=== PATIENT | female | born 1950 | race Caucasian/White ===

== ENCOUNTER → 2019-12-02 08:04 | Outpatient (BNVA) | payer MEDICARE, MEDICAID, SELFPAY | PROVIDERS: Family Provider Family Medicine; Visit Provider Psychiatry & Neurology Psychiatry | DX: F33.42 Major depressive disorder, recurrent, in full remission (principal); F43.12 Post-traumatic stress disorder, chronic; F41.1 Generalized anxiety disorder | CPT/HCPCS: 99213 ==

== ENCOUNTER → 2020-01-09 08:17 | Outpatient (BNVA) | payer MEDICARE, MEDICAID, SELFPAY | PROVIDERS: Family Provider Family Medicine; Visit Provider Psychiatry & Neurology Psychiatry | DX: F33.42 Major depressive disorder, recurrent, in full remission (principal); F43.12 Post-traumatic stress disorder, chronic; G47.33 Obstructive sleep apnea (adult) (pediatric) | CPT/HCPCS: 99214 ==

== ENCOUNTER → 2020-07-21 07:37 | Outpatient (BNVA) | payer MEDICARE, MEDICAID, SELFPAY | PROVIDERS: Family Provider Family Medicine; Visit Provider Psychiatry & Neurology Psychiatry | DX: F43.12 Post-traumatic stress disorder, chronic (principal); F33.42 Major depressive disorder, recurrent, in full remission; F34.1 Dysthymic disorder; F70 Mild intellectual disabilities | CPT/HCPCS: 99214 ==

== ENCOUNTER → 2020-08-26 09:08 | Outpatient (BNVA) | payer MEDICARE, MEDICAID, SELFPAY | PROVIDERS: Family Provider Family Medicine; Visit Provider Psychiatry & Neurology Psychiatry | DX: F43.12 Post-traumatic stress disorder, chronic (principal); F34.1 Dysthymic disorder; G47.33 Obstructive sleep apnea (adult) (pediatric); F33.42 Major depressive disorder, recurrent, in full remission | CPT/HCPCS: 99213 ==

== ENCOUNTER 2020-11-29 16:42 | Outpatient (CLI) | payer MEDICARE, MEDICAID, SELFPAY ==
--- NOTE | 2020-11-29 17:07 | XRR_ITS ---
PROCEDURE INFORMATION: Exam: XR Chest Exam date and time: 11/29/2020 5:11 PM Age: 70 years old Clinical indication: Dyspnea; Additional info: Rule out pneumonia TECHNIQUE: Imaging protocol: XR of the chest. Views: 2 views. COMPARISON: CR Chest 1 [place] [id number] 11/16/2018 7:45 PM FINDINGS: Lungs: Multiple stable benign pulmonary granulomas are present bilaterally. No pneumonia is seen. Mild fibrosis is present in the lung bases. Pleural spaces: Unremarkable. No pleural effusion. No pneumothorax. Heart/Mediastinum: Unremarkable. No cardiomegaly. Bones/joints: The patient has undergone vertebral plasty at T4. XR/XR chest 2V* [id number] IMPRESSION: No acute abnormality. No pneumonia.
== END 2020-11-29 16:43 | disposition home or self-care (01) ==
LOC: RAD 16:53
PROVIDERS: PCP Family Medicine; Visit Provider Internal Medicine Pulmonary Disease
DX: R06.00 Dyspnea, unspecified (principal)
CPT/HCPCS: 71046

== ENCOUNTER → 2021-02-08 08:59 | Outpatient (BNVA) | payer MEDICARE, MEDICAID, SELFPAY | PROVIDERS: PCP Family Medicine; Visit Provider Internal Medicine Pulmonary Disease | DX: Z01.812 Encounter for preprocedural laboratory examination (principal); Z20.822 Contact with and (suspected) exposure to COVID-19 | CPT/HCPCS: 87635 ==

== ENCOUNTER 2021-02-09 10:15 | Outpatient (CLI) | payer MEDICARE, MEDICAID, SELFPAY ==
--- NOTE | 2021-02-09 11:12 | ECG_ITS ---
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 Interpretive Statements NAME OF STUDY: LEXISCAN SESTAMIBI STRESS TEST INDICATION: Chest Pain, PROCEDURE: At the baseline, the EKG revealed sinus bradycardia with some nonspecific T wave changes.. The baseline blood pressure was 133/56 mm Hg with a heart rate of 59 beats/min. Lexiscan was infused over a period of 20 seconds. A total of 0.4 milligrams of Lexiscan was infused. The stress phase was continued for a total of 5 minutes. Heart rate at the end of the stress phase was 85 with a blood pressure 101/50. The EKG at the peak infusion revealed no significant changes. Sestamibi was injected 20 seconds after the Lexiscan infusion. Blood pressure at the end of the recovery phase was 108/51 with a heart rate of 84 per minute. CONCLUSION: 1. No significant EKG changes with the LexiScan infusion 2. No LexiScan induced chest pain or cardiac arrhythmia 3. Normal blood pressure and heart rate response 4. Sestamibi/sestamibi perfusion scan pending; see separate report. Electronically Signed On 02-11-2021 10:09:18 CDT by Romana Navarro M.D. [id number]
--- NOTE | 2021-02-09 11:13 | NMCV_ITS ---
NM wilfred perf SPECT r/s* [id number] Bharti Lua Age: 70 Gender: F : 1950 Exam Date: 02/09/2021 11:42 Ordering Phys: Annabelle Lam Technologist: LISA Tobar Exam Location: [facility] Indications: CHEST PAIN STRESS TEST Please [facility] for [facility] IMAGE PROTOCOL Rest/Stress 1 Lexiscan Day Radiopharmaceutical Dose (mCi) Administration Site Administered by Rest: Tc-99m 10.7 IV LISA Tobar Sestamibi Stress:Tc-99m 32.8 IV LISA Wheeler Sestamibi Rest: 09-Feb-2021 60 Discovery 630 Stress: 09-Feb-2021 30 Discovery 630 0.4mg Lexiscan. Images obtained in supine and prone position. SPECT RESULTS Technical Quality: Excellent Raw Data Analysis: Normal Image Corrections: No attenuation or motion correction applied Summed Stress Score: 1 Summed Rest Score: 10 Summed Difference Score: 0 PERFUSION FINDINGS Small area of decreased tracer uptake was noted in the apical septal region. Extensive attenuation artifacts are noted in the resting images FUNCTIONAL RESULTS (calculated via Gated SPECT) Stress Image LV EF (%): 75 Stress EDV (mL):73 TID: 1.23 Stress ESV (mL):18 FUNCTIONAL FINDINGS: Segmental wall motion analysis revealing no gross wall motion normalities. IMPRESSIONS 1. Myocardial perfusion imaging revealing a small area of decreased tracer uptake in the apical septal region, with no significant reversibility, suggestive of myocardial scarring versus attenuation artifact. 2. Normal LV ejection fraction of 75%. 3. LV wall motion analysis revealing no gross wall motion normalities. 4. Normal LV volume. 5. Elevated transient ischemic dilatation ratio, may suggest endocardial ischemia. However the positive predictive value of this finding is limited, especially in view of the absence of any other significant abnormal's objective findings. Clinical correlation is recommended Dr Romana Navarro MD FAC (Electronically Signed) Final Date: 10 February 2021 08:33 S
[2021-02-09 11:14] VITALS: BMI 30.6
[2021-02-09] MEDS: regadenoson 0.4 Mg/5 ml Syringe IVP (12:16)
[2021-02-09 12:32] VITALS: BP 108/51; PULSE 84
--- NOTE | 2021-02-09 14:48 | PFTS_ITS ---
Date of Study:02/09/21 Date of Dictation: MECHANICS: Forced vital capacity (FVC) is normal. Forced expiratory volume in one second (FEV1) is reduced. FEV1/FVC is reduced. FLOW VOLUME LOOP: Reduced flow at all lung volumes with significant scooping. LUNG VOLUMES: Total lung capacity (TLC) is normal. Residual volume (RV) is increased. DIFFUSING CAPACITY FOR CARBON MONOXIDE: Moderately reduced. INTERPRETATION: The pulmonary function tests are consistent with moderate airflow obstruction. There is no significant postbronchodilator response. Lung volumes are consistent with air trapping. Gas exchange (DLCO) is moderately reduced. MTDD
== END 2021-02-09 10:16 | disposition home or self-care (01) ==
PROVIDERS: PCP Family Medicine; Visit Provider Nurse Practitioner Family
DX: R07.9 Chest pain, unspecified (principal); J44.9 Chronic obstructive pulmonary disease, unspecified
CPT/HCPCS: 78452; 93017; 94060; 94618; 94726; 94729; A9500; J2785

== ENCOUNTER 2021-04-28 11:49 | Outpatient (CLI) | payer MEDICARE, MEDICAID, SELFPAY ==
[2021-04-28 12:17] LABS: Basophils # 0.1 10^3/uL (0.0-0.1); Basophils % 1.1 %; Eosinophils # 0.3 10^3/uL (0.0-0.8); Eosinophils % 4.5 %; Hematocrit 33.8 % (37.0-47.0); Hemoglobin 10.8 g/dL (11.5-15.3); Lymphocytes # 2.2 10^3/uL (0.8-4.8); Lymphocytes % 35.6 %; Mean Corpuscular Hemoglobin 31.7 pg (28.0-34.0); Mean Corpuscular Volume 99.1 fl (81-99); Mean Platelet Volume 9.5 fL (7.4-10.4); Monocytes # 0.7 10^3/uL (0.2-0.9); Monocytes % 10.6 %; Neutrophils # 2.95 10^3/uL (1.8-7.7); Neutrophils % 47.9 %; Nucleated Red Blood Cells % 0.6 %; Platelet Count 304 10^3/cmm (130-400); Red Blood Count 3.41 10^6/uL (4.1-5.3); Red Cell Distribution Width 13.8 % (12.1-15.1); White Blood Count 6.2 10^3/uL (4.0-10.0)
[2021-04-28 12:42] LABS: Anion Gap 11.6 (5-19); Blood Urea Nitrogen 18 mg/dL (8-23); Calcium 8.9 mg/dL (8.5-10.5); Carbon Dioxide 30 mmol/L (22-29); Chloride 103 mmol/L (98-107); Glucose 98 mg/dL (65-115); Osmolality Calculated 292 mOsm/kg (285-295); Potassium 4.6 mmol/L (3.5-5.1); Sodium 140 mmol/L (136-145)
[2021-04-28 13:20] LABS: INR 0.93 (0.8-1.2)
== END 2021-04-28 11:50 | disposition home or self-care (01) ==
LOC: LAB 11:56
PROVIDERS: PCP Family Medicine; Visit Provider Internal Medicine Cardiovascular Disease
DX: I10 Essential (primary) hypertension (principal); R00.0 Tachycardia, unspecified; R07.2 Precordial pain
CPT/HCPCS: 36415; 80048; 85025; 85610; 87635

== ENCOUNTER 2021-05-05 06:08 | Outpatient (CLI) | payer MEDICARE, MEDICAID, SELFPAY ==
[2021-05-05] VITALS (21 sets, daily range): BP systolic 94–147; BP diastolic 38–83; PULSE 52–80; RESP 12–22; TEMP 36.9; O2SAT 95–100; BMI 32.7
--- NOTE | 2021-05-05 07:37 | W.PM.OPSFHP ---
Same Day Surgery H&P Indication for Procedure/HPI DATE OF PROCEDURE: May 05, 2021 CHIEF COMPLAINT/INDICATIONFOR SURGICAL PROCEDURE: Unexplained shortness of breath with chest pain radiating to left elbow PREOP DIAGNOSIS: Suspicious of angina PLANNED PROCEDRUE: Operation Date: 05/05/21 07:00 Proposed Procedures p Cardiac Catheterization(Bilateral) - Mala Gorman MD 70-year-old female past medical history significant for COPD hyperlipidemia for unexplained shortness of breath more than usual and chest pain sometimes at rest and on exertion underwent stress test which showed increased TID, patient medicine work-up demised conservative management was adopted however despite of optimization of medicine including beta-rolando isosorbide mononitrate patient condition worsen she continues to complain of worsening of shortness of breath with increase in frequency of the chest pain radiating to left arm and elbow. It is the reason we decided to proceed with left and right heart cath for unexplained shortness of breath and anginal-like condition. Patient has been explained all risk benefit and alternative for the procedure. She has been explained the risk for stroke contrast-induced nephropathy bleeding urgent emergent bypass surgery aneurysm pseudoaneurysm vascular injury and infection. She would like to proceed with it. Patient cannot take DAPT Medications/Allergies* Home Medications Medication Instructions Recorded Confirmed Type Anoro Ellipta 62.5 mcg DIRECTED DAILY 05/05/21 05/05/21 History Daliresp 500 mcg PO DAILY 05/05/21 05/05/21 History Klonopin 1 mg PO BID PRN 05/05/21 05/05/21 History Levemir Flexpen 38 units SUBCUT DAILY 05/05/21 05/05/21 History aspirin 81 mg PO BEDTIME 05/05/21 05/05/21 History atorvastatin 20 mg PO BEDTIME 05/05/21 05/05/21 History duloxetine 90 mg PO DAILY 05/05/21 05/05/21 History meloxicam 15 mg PO DAILY 05/05/21 05/05/21 History Allergies/Adverse Reactions Allergy/AdvReac Type Severity Reaction Status Date / Time No Known Allergies Allergy Verified 02/16/21 14:24 Pertinent History/Comorbid Conditions* Medical History (Updated 12/22/20 @ 14:03 by Mala Gorman MD) Chronic post-traumatic stress disorder Obstructive sleep apnea 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 Social History Smoking and tobacco status: former smoker Quit status (tobacco): has quit using tobacco Year quit tobacco: 2006 [id number] Second hand smoke exposure: No Smoking risk assessment/counseling performed?: Yes Alcohol intake: never Caregiver/support person: Yes Lives independently: Yes Housing: House Marital status: / Current occupational status: disabled Pets and animals: Yes History of recent travel: No Current gender identity: Female Pertinent Exam Findings alert, oriented x 3 and clear to auscultation bilaterally Conscious Sedation Assessment PATIENT ASSESSED PRIOR TO SEDATION, WITH NO CHANGE NOTED: Yes AIRWAY EVAL/ANESTHESIA PLAN: ASA II, Risks, benefits & alternatives of sedation and/or procedure discussed and Patient agrees to continue as planned Recommendations Surgery/Procedure today Coding Level of Care Code Acute Vice President Risk Management for Phil Guzman
[2021-05-05 09:05] LABS: ABG PH Result 7.31 (7.35-7.45); Arterial Blood Gas Hematocrit 28.4 % (37-47); Base Excess ABG -1.7 mmol/L (-2.0-2.0); Blood Gas Allen Test Pos; Blood Gas Operator Identificat MONRO; Blood Gas Sample Site AO; Blood Gas Sample Type Arterial; HCO3 ABG 24.9 mmol/L (22-26); PO2 ABG 50.1 mmHg (80.0-100.0)
--- NOTE | 2021-05-05 09:56 | XACV_ITS ---
Exam Room: 1 Ht: 157 cm Wt: 81 kg BSA: 1.92 m2 Gender: Female : 1950 Exam Priority: Routine Procedure(s): Procedure Description: Diagnostic procedure Procedure Description: Miscellaneous Procedure Description: Angio-Seal Procedure Description: Pressure Wire Diagnostic Cath Status: Elective Diagnostic Findings * Left Main has no disease. * Circumflex has no disease. * Proximal Left Anterior Descending: obstructive 60% stenosis, CELIA: 3 flow, FFR performed: ratio is 0.86. * Proximal Right Coronary Artery: minimal 30% stenosis, CELIA: 3 flow. * Coronary angiography shows right dominance. PCI Status: Elective Conclusions 1. Please note that this is a 2. continuity of 3. same cath 4. as images are not merged. Moderate proximal LAD lesion was assessed through FFR. 5. After equalizing the distal and proximal pressure of FFR wire proximal to the lesion, Prox LAD lesion was crossed with FFR wire. IV adenosine at rate of 140 mcg/min was started. Patient did not compliant of any symptoms, at then end of two minutes FFR was recorded as 0.86, which is not significant 6. . 7. There is obstructive coronary artery disease with two vessel disease. Recommendations * Continue current medical management and risk factor modification. Diagnostic RX Recommendation: medical therapy and/or counseling Clinical Evaluation EBL: 5mL-10mL Procedural Details Pre-Procedure Time Out. Identified patient by full name and date of as verbalized by the patient/guarantor. Does the consent match the physician's order: Yes. Accurate & Complete Informed Consent: Yes. Inpatient/Outpatient History & Physical on Chart: Yes. If H&P is completed, is and addenduem needed: No. Relevant Radiology Images available: Yes. Pre-op teaching completed and patient verbalized understanding. The risks, benefits, and alternatives of sedation and/or procedure were discussed by physician. The patient agrees to continue. Procedure started. Correct patient, site and procedure confirmed by cath team. PERRLA. 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 Lungs clear x 5 lobes. IV Site on Arrival: 20 gauge in the right anticubital. IV Fluids: 0.9% NaCl at KVO. 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 Pre Procedural Pulses: bilateral radial was 2+. Pre Procedural Pulses: right dorsalis pedis was 1+. Pre Procedural Pulses: right posterior tibial was 2+. Pre Procedural Pulses: left dorsalis pedis was Doppled. Pre Procedural Pulses: left posterior tibial was Doppled. Oxygen started at 2liters/min via nasal canula. bilateral groins was prepped with chloroprep then draped in the usual sterile fashion. Physician notified. Physician arrived. Patient's family unavailable. Equipment: 6F - Femoral. Cardiac Cath Pack. ACIST Manifold Kit Model BT 2000. Heparinized Saline (2 units/mL), 1000 mL bag. Kit, Micropuncture. Baseline sample Acquired. HR: 50 BPM. [facility] Clinical Fraility Score: 3: Managing Well. Physician Specialist Indications: Worsening Angina. Chest Pain Symptom Assessment: Atypical Angina. Cardiovascular Instability: No. Jeanne Mclean RN circulating with Jonnie Pino RN, [facility]. Physician scrubbed in. Immediate Pre-Procedure Time Out. Correct Patient: Yes; Correct Procedure: Yes; Correct Site: Yes; Correct Patient Position: Yes; Correct Supplies: Yes; Dried Flammable Prep: Yes; Blood Products Available: N/A;. Lidocaine 1% infiltrated to the right groin. Arterial access obtained with micropuncture set. 6 wolof JL 3.5 guide catheter was inserted over the wire. FFR wire in and advanced across the lesion in the Mid LAD. Fractional flow reserve measurements obtained. An FFR value of 0.86 was obtained for a lesion located at Mid LAD. FFR wire out. Guide catheter out. A Right femoral angiogram was performed to determine safe placement of closure device. Lidocaine 1% infiltrated to the right groin. Perclose X 2 inserted and failed. No signs or symptoms of hematoma noted. Sterile dressing applied per usual sterile fashion. LOT #[id number]. Exp. 12/10/2022. PERRLA. 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 No VTE prophylaxis required. Medication's Wasted: Heparin = 2000 units. Medication's Wasted: Adenosine = 65.2 mL. Total IV fluids: 36 mL. Post-op diagnosis: Non-Obstructive CAD of the Prox Lad with an FFR of 0.86. 6 fr sheath inserted. Mynx placed without complications. No signs or symptoms of hematoma noted. Sterile dressing applied per usual sterile fashion. LOT #[id number]. Exp. 05/12/2022. Post Procedure: Pulses reassessed and unchanged. Complications: none. Estimated blood loss: 5mL-10mL. Procedure completed. Patient transferred by stretcher to CPRU. Vital chart was stopped. Access Site Site: Right Femoral artery Sheath Size: 6 Fr Hemostasis Success: Unsuccessful Procedure Medications Start: 10:19 AM Stop: 10:19 AM Medication: Versed Amount: 1 mg Route: I.V. Start: 10:19 AM Stop: 10:19 AM Medication: Fentanyl Amount: 50 mcg Route: I.V. Start: 10:20 AM Stop: 10:20 AM Medication: Versed Amount: 1 mg Route: I.V. Start: 10:27 AM Stop: 10:27 AM Medication: Adenosine (Adenocard) Amount: 680 ml/hr Route: I.V. bolus I, the attending physician, have reviewed and verified all procedure medications. Yes, all medications given per verbal order History/Risk Factors Hypertension: Yes Dyslipidemia: No Peripheral Arterial Disease (PAD): No Myocardial Infarction (PR): No Obesity: No Renal Disease: No Tobacco Use: Former Prior Interventions PCI: No CABG: No Valve Surgery: No Report Signatures Finalized by Mala Gorman MD on 05/18/2021 07:56 PM
--- NOTE | 2021-05-05 11:14 | PC.NURSE ---
recovery recvd pt from [facility]. pt has tr band in place on right wrist with distal pulse palpable. pt also had femoral approach and now has a dressing in place on right groin. no hematoma or bruise noted. pt complains of little pain and doesn't request anything at this point. lights have been dimmed for comfort. pt placed on monitor per protocol. pt educated on restriction of right arm and leg. pt stated understanding. will continue to educated throughout recovery.
--- NOTE | 2021-05-05 12:30 | PC.NURSE ---
recovery tr band off with no incident. dressing in place. pt educated on restrictions of right wrist and was told to keep site dry for 24 hrs. pt acknowledged understanding.
--- NOTE | 2021-05-05 14:21 | PC.NURSE ---
Ambulated patient in unit, bathroom to void and back to bed. After ambulation right femoral site dressing dry and intact. Area soft,no sign of hematoma. Right wrist site asymptomatic. Pt tolerated activity well.
== END 2021-05-05 15:41 | disposition home or self-care (01) ==
PROVIDERS: PCP Family Medicine; Visit Provider Internal Medicine Cardiovascular Disease
DX: I25.10 Atherosclerotic heart disease of native coronary artery without angina pectoris (principal); R06.02 Shortness of breath; R07.9 Chest pain, unspecified; J44.9 Chronic obstructive pulmonary disease, unspecified; E78.5 Hyperlipidemia, unspecified; Z79.82 Long term (current) use of aspirin; G47.33 Obstructive sleep apnea (adult) (pediatric); Z87.891 Personal history of nicotine dependence; I10 Essential (primary) hypertension
CPT/HCPCS: 36415; 82803; 93453; 93571; C1751; C1760; C1769; C1887; C1894; J0153; J1644; J2250; J3010; J3490; J7030; Q0163; Q9967

== ENCOUNTER → 2021-05-12 12:10 | Outpatient (BNVA) | payer MEDICARE, MEDICAID, SELFPAY | PROVIDERS: PCP Family Medicine; Visit Provider Nurse Practitioner Family | DX: I25.10 Atherosclerotic heart disease of native coronary artery without angina pectoris (principal) | CPT/HCPCS: 80048 ==

== ENCOUNTER 2021-06-15 13:24 | Outpatient (CLI) | payer MEDICARE, MEDICAID, SELFPAY ==
--- NOTE | 2021-06-15 13:35 | CT_ITS ---
WS: [id number] LDCT LUNG CANCER SCREENING TECHNIQUE: Noncontrast CT of the chest with coronal and sagittal reformatted images. CLINICAL INFORMATION: Lung Screenin COMPARISON: CTA chest January 23, 2017 DLP: 54.98 mGy.cm DIvol: 1.[address] scans at [facility] use at least one of these dose optimization techniques: automat ed exposure control; mA and/or kV adjustment per patient size (includes targeted exams where dose is matched to clinical indication); or iterative reconstruction. FINDINGS: Advanced chronic emphysematous changes. Numerous calcified and noncalcified pulmonary nodules stable since the prior examination. No suspicious pulmonary parenchymal opacities. Slight atelectasis right middle lobe. Chronic compression with vertebroplasty changes in the T4 vertebral body Aortic calcification. Normal caliber thoracic aorta. Coronary calcification. No mediastinal or hilar lymphadenopathy. Normal GE junction. Stable small left adrenal adenoma. CT/CT lung screening [id number] IMPRESSION: LUNG-RADS: 2-Benign Appearance or Behavior FOLLOW UP: 12 Month: Continue annual screening with LDCT
== END 2021-06-15 13:25 | disposition home or self-care (01) ==
LOC: RAD 13:33
PROVIDERS: PCP Family Medicine; Visit Provider Internal Medicine Pulmonary Disease
DX: Z12.2 Encounter for screening for malignant neoplasm of respiratory organs (principal); Z87.891 Personal history of nicotine dependence; I70.0 Atherosclerosis of aorta; I25.10 Atherosclerotic heart disease of native coronary artery without angina pectoris
CPT/HCPCS: 71271

== ENCOUNTER 2021-10-12 02:04 | Emergency (ER) | payer MEDICARE, MEDICAID, SELFPAY ==
[2021-10-12 02:08] VITALS: BP 98/53; PULSE 53; RESP 14; TEMP 36.8; O2SAT 93; BMI 28.5
--- NOTE | 2021-10-12 02:12 | CTR_ITS ---
PROCEDURE INFORMATION: Exam: CT Head Without Contrast Exam date and time: 10/12/2021 2:12 AM Age: 71 years old Clinical indication: Injury or trauma; Fall; Blunt trauma (contusions or hematomas); Patient HX: Fell at home. Bruising and swelling to left eyebrow. C/O pain. TECHNIQUE: Imaging protocol: Computed tomography of the head without contrast. Radiation optimization: All CT scans at this facility use at least one of these dose optimization techniques: automated exposure control; mA and/or kV adjustment per patient size (includes targeted exams where dose is matched to clinical indication); or iterative reconstruction. COMPARISON: CT head wo con* [id number] 11/06/2016 2:20 PM RADIATION DOSE METRICS: Total DLP (mGy-cm): 801.63 FINDINGS: Brain: Mild cerebral atrophy. Cerebral ventricles: No ventriculomegaly. Paranasal sinuses: Visualized sinuses are unremarkable. No fluid levels. Mastoid air cells: Visualized mastoid air cells are well aerated. Vasculature: Exam limitation secondary to artifact from one or more metallic earrings. Severe calcified intracranial atherosclerotic vessel disease. Bones/joints: Unremarkable. No acute fracture. Soft tissues: Soft tissue swelling over left lateral orbital rim. CT/CT head wo con* [id number] IMPRESSION: 1. Soft tissue swelling over left lateral orbital rim. 2. No acute intracranial findings.
--- NOTE | 2021-10-12 02:16 | XRR_ITS ---
PROCEDURE INFORMATION: Exam: XR Left Elbow Exam date and time: 10/12/2021 2:16 AM Age: 71 years old Clinical indication: Injury or trauma; Fall; Blunt trauma (contusions or hematomas); Patient HX: Patient fell at home. Visual deformity to left elbow. C/O pain. TECHNIQUE: Imaging protocol: XR Left elbow. Views: 3 or more views. COMPARISON: No relevant prior studies available. FINDINGS: Bones/joints: Complete dislocation of the elbow. Soft tissues: Normal. XR/XR elbow LT min 3V* [id number] IMPRESSION: Complete dislocation of the elbow.
[2021-10-12 02:20] VITALS: BP 124/45; PULSE 53; RESP 16; TEMP 36.8; O2SAT 97
--- NOTE | 2021-10-12 02:20 | W.ED.FALL ---
HPI - Fall General: Chief Complaint: Fall Stated Complaint: fell, hit head , confused Time Seen by Provider: 10/12/21 02:14 Source: patient Mode of arrival: ambulatory Limitations: no limitations History of Present Illness: 71-year-old female who states she got up in the middle the night tripped over her dog. States this happened just prior to arrival she fell on her left side fell on her left elbow and also hit the left side of her head does have abrasion to her left forehead obvious deformity to left elbow she denies any other injuries denies neck pain denies chest or abdominal pain. Denies any lower extremity pain Associated symptoms-after fall: Reports headache(s); Denies abdominal pain, chest pain or neck pain Review of Systems Const: Denies: fever(s), chills, body aches or change in appetite Eyes: Denies: blurry vision or eye discomfort ENMT: Denies: throat pain or dental pain Card: Denies: chest pain Resp: Denies: dyspnea GI: Denies: abdominal pain, nausea, vomiting or diarrhea : Denies: dysuria Musc: Reports: extremity pain; Denies: neck pain or back pain Skin/Breast: Denies: rash Neuro: Reports: headache(s) Psych: Denies: depression Steve/Lymph: Denies: easy bruising All/Imm: Denies: urticaria PFSH ED PFSH: Medical History Chronic post-traumatic stress disorder Encounter for screening for lung cancer Obstructive sleep apnea Persistent depressive disorder 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 Social History Smoking and tobacco status: former smoker Quit status (tobacco): has quit using tobacco Year quit tobacco: 2006 [id number] Second hand smoke exposure: No Smoking risk assessment/counseling performed?: Yes Alcohol intake: never Caregiver/support person: Yes Lives independently: Yes Housing: House Marital status: / Current occupational status: disabled Pets and animals: Yes History of recent travel: No Current gender identity: Female Physical Exam Const: COMMON NORMALS: no acute distress, patient oriented x3 and healthy appearing HENMT: COMMON NORMALS: normocephalic; head/scalp not atraumatic (contusion to left forehead) HEAD & SCALP: normocephalic; not atraumatic (contusion to left forehead) Eye: COMMON NORMALS: Equal, round and reactive pupils present and EOMs intact bilaterally PUPIL: Yes Equal, round and reactive pupils present Neck/C-Spine: COMMON NORMALS: full ROM and supple Chest: COMMONS NORMALS: normal inspection of the chest and normal palpation of entire chest wall Resp: COMMON NORMALS: normal respiratory effort, No retractions, No use of accessory muscles and clear to auscultation bilaterally AUSCULTATION: clear to auscultation bilaterally Cardio: COMMON NORMALS: regular rate, regular rhythm and No murmurs present (Cardio) RATE: regular rate RHYTHM: regular rhythm GI: COMMON NORMALS: Normal to inspection, nondistended, normoactive bowel sounds present, Soft to palpation, non-tender and no masses PALPATION: Yes Soft to palpation Extremity: NARRATIVE EXTREMITY EXAM: Obvious deformity to left elbow possibly dislocated distal pulses and sensation are intact Neuro: COMMON NORMALS: patient oriented x3, moves all extremities and no focal motor deficits Psych: COMMON NORMALS: mental status grossly normal, Normal thought process present and cooperative THOUGHT PROCESS: Normal thought process present Skin: COMMON NORMALS: no rashes or lesions noted and no wounds GENERAL SKIN EXAM: no rashes or lesions noted Procedures Orthopedic Joint Reduction Joint #1: Time Out Performed: Yes Side: left Joint Reduction Location: elbow Analgesia: procedural sedation Technique used: traction/counter-traction Post-reduction neuro exam: intact Post-reduction vascular: intact Post Reduction X-Ray Obtained: Yes Post Reduction X-Ray Results: reduced Splint Applied: Yes Patient Tolerated Procedure: well Procedural Sedation Indication: fracture/dislocation reduction ASA Class: II Time of Last PO Intake: 00:00 Preparation: air sampling and monitoring applied, pulse oximeter and supplemental O2 applied IV Propofol dose (mg): 50 Patient Tolerated Procedure: well Complications: none Course Vital Signs: Vital signs: Vital Signs Temperature 98.2 F 10/12/21 02:20 Pulse Rate 53 L 10/12/21 03:26 Respiratory Rate 16 10/12/21 03:26 Blood Pressure 130/58 10/12/21 03:26 Pulse Oximetry 99 10/12/21 03:26 MDM - Fall Medical Decision Making Patient presents here with an elbow dislocation from a fall along with head contusion her elbow was successfully reduced patient placed in a splint as well we will get her follow-up with orthopedics she is to return if worsening she understands agrees to plan. Lab Data Radiology Impressions Head CT 10/12/21 02:12 IMPRESSION: 1. Soft tissue swelling over left lateral orbital rim. 2. No acute intracranial findings. Elbow X-Ray 10/12/21 02:56 IMPRESSION: 1. Interval reduction of complete left elbow dislocation. 2. Possible 1 mm avulsion fracture over the lateral elbow joint. Ribs X-Ray 10/12/21 02:56 IMPRESSION: 1. Continued bilateral pulmonary nodules. 2. One or more healed left rib fractures. Discharge Plan Discharge Patient Disposition: Home Clinical Impression: Fall Dislocation of elbow Qualifiers: Encounter type: initial encounter Laterality: left Qualified Code(s): S53.105A - Unspecified dislocation of left ulnohumeral joint, initial encounter Condition: Stable Prescriptions: New hydrocodone-acetaminophen 5-325 mg tablet 1 tab PO Q6H PRN (Reason: pain) Qty: 14 0RF No Action metoprolol succinate 25 mg tablet extended release 24 hr 25 mg PO DAILY 0RF nitroglycerin [Nitrostat] 0.4 mg tablet, sublingual 0.4 mg sublingual Q5M PRN (Reason: chest pain) Qty: 25 3RF Rx Instructions: do not exceed 3 doses per episode trazodone 100 mg tablet 400 mg PO DAILY Qty: 120 1RF Label Comments: pt states she might take 4 tabs or 2 tabs depending on how she feels Anoro Ellipta 62.5-25 mcg/actuation blister with device 1 inh inhalation DAILY Qty: 60 3RF Daliresp 500 mcg tablet 500 mcg PO DAILY Qty: 30 3RF ferrous sulfate 325 mg (65 mg iron) tablet 325 mg PO DAILY 0RF magnesium oxide 400 mg magnesium capsule 400 mg PO DAILY 0RF isosorbide mononitrate 30 mg tablet extended release 24 hr 15 mg PO BID Qty: 90 3RF Levemir Flexpen 38 units SUBCUT DAILY 0RF aspirin 81 mg tablet 81 mg PO BEDTIME 0RF atorvastatin 20 mg tablet 20 mg PO BEDTIME 0RF meloxicam 15 mg tablet 15 mg PO DAILY 0RF Klonopin 1 mg tablet 1 mg PO BID PRN (Reason: Anxiety) 0RF duloxetine 60 mg capsule,delayed release(DR/EC) 90 mg PO DAILY 0RF Discharge Orders: Discharge ED (Routine); Ordered 10/12/21 Ordered By: Louis Reynolds Referrals: Darrell Hung MD [Physician] - 1-3 days Neda Adame DO [Primary Care Provider] - Discharge Diet: Advance as tolerated Discharge Activity: Resume usual activity Patient Instructions: Elbow Dislocation (ED), Opioid Safety Coding Level of Care Code ED Superintendent Laundry for Chg Fwd Exam Comprehensive
[2021-10-12 02:38] VITALS: RESP 16
[2021-10-12] MEDS: ondansetron 2 mg/ML SDV 2 mL 4 MG IVP (02:38)
[2021-10-12] MEDS: morphine 4 mg/mL SDV 1 mL IVP (02:38)
[2021-10-12] MEDS: sodium chloride 0.9% 1,000 ML 999 ML IV (02:39)
[2021-10-12 02:55] VITALS: BP 130/64; PULSE 50; RESP 20; O2SAT 99
[2021-10-12] MEDS: propofol 10 mg/mL SDV 20 mL 100 MG IVP (02:55)
--- NOTE | 2021-10-12 02:56 | XRR_ITS ---
PROCEDURE INFORMATION: Exam: XR Left Ribs with PA Chest Exam date and time: 10/12/2021 2:56 AM Age: 71 years old Clinical indication: Injury or trauma; Fall; Blunt trauma; Patient HX: Patient fell at home. C/O left chest wall pain. ; Additional info: Fall. Rib pain TECHNIQUE: Imaging protocol: XR Left ribs with PA chest. Views: 3 views COMPARISON: CR XR chest 2V* [id number] 11/29/2020 5:22 PM FINDINGS: Lungs: Continued bilateral pulmonary nodules. Stable calcified bilateral hilar nodes and/or mediastinal nodes and/or lung granulomas consistent with old granulomatous disease. Pleural spaces: Unremarkable. No pleural effusion. No pneumothorax. Heart/Mediastinum: Unremarkable. No cardiomegaly. Bones/joints: One or more healed left rib fractures. XR/XR ribs LT mn 3V w CXR1V [id number] IMPRESSION: 1. Continued bilateral pulmonary nodules. 2. One or more healed left rib fractures.
--- NOTE | 2021-10-12 02:56 | XRR_ITS ---
PROCEDURE INFORMATION: Exam: XR Left Elbow Exam date and time: 10/12/2021 2:56 AM Age: 71 years old Clinical indication: Injury or trauma; Fall; Blunt trauma (contusions or hematomas); Elbow; Left; Patient HX: Check S/P reduction. ; Additional info: Post reduction TECHNIQUE: Imaging protocol: XR Left elbow. Views: 1 or 2 views. COMPARISON: CR (UP EX, ) 10/12/2021 2:20 AM FINDINGS: Bones/joints: Interval reduction of complete left elbow dislocation. Possible 1 mm avulsion fracture over the lateral elbow joint. Soft tissues: Normal. XR/XR elbow LT 2V [id number] IMPRESSION: 1. Interval reduction of complete left elbow dislocation. 2. Possible 1 mm avulsion fracture over the lateral elbow joint.
[2021-10-12 03:00] VITALS: BP 114/58; PULSE 53; RESP 16; O2SAT 95
[2021-10-12 03:26] VITALS: BP 130/58; PULSE 53; RESP 16; O2SAT 99
--- NOTE | 2021-10-12 09:32 | DCPLANNER ---
Addendum entered by Mary Perez 11/04/21 11:38: Patient had a follow up appointment scheduled with Dr. Hung at ortho - patient did attend appointment. Addendum entered by Mary Perez 10/13/21 14:53: Patient has a follow up appointment scheduled for Thursday, October 14, 2021 at 9:[address] Hung at ortho. Clinic will call patient with appointment information. Original Note: auto parts manager had message to schedule a follow up appointment for patient with ortho. auto parts manager called ortho, spoke with Jazmin, gave clinic patients information. auto parts manager was told that patients information would be printed and reviewed. Clinic will call patient with appointment information.
== END 2021-10-12 03:44 | disposition home or self-care (01) ==
PROVIDERS: Emergency Provider Emergency Medicine; PCP Family Medicine
DX: S53.105A Unspecified dislocation of left ulnohumeral joint, initial encounter (principal); S00.81XA Abrasion of other part of head, initial encounter; Z79.82 Long term (current) use of aspirin; Z79.4 Long term (current) use of insulin; Z87.891 Personal history of nicotine dependence; W01.0XXA Fall on same level from slipping, tripping and stumbling without subsequent striking against object, initial encounter
CPT/HCPCS: 24600; 70450; 71101; 73070; 73080; 96361; 96374; 96375; 99284; J2270; J2405; J2704; J7030

== ENCOUNTER → 2021-10-25 14:30 | Outpatient (BNVA) | payer MEDICARE, MEDICAID, SELFPAY | PROVIDERS: PCP Family Medicine; Visit Provider Orthopaedic Surgery | DX: S42.402D Unspecified fracture of lower end of left humerus, subsequent encounter for fracture with routine healing (principal); X58.XXXD Exposure to other specified factors, subsequent encounter | CPT/HCPCS: 73080 ==

== ENCOUNTER → 2021-12-13 11:52 | Outpatient (BNVA) | payer MEDICARE, MEDICAID, SELFPAY | PROVIDERS: PCP Family Medicine; Visit Provider Internal Medicine Cardiovascular Disease | DX: R42 Dizziness and giddiness (principal); R55 Syncope and collapse; I25.10 Atherosclerotic heart disease of native coronary artery without angina pectoris; I10 Essential (primary) hypertension; J43.2 Centrilobular emphysema; E11.9 Type 2 diabetes mellitus without complications; G47.33 Obstructive sleep apnea (adult) (pediatric); E78.5 Hyperlipidemia, unspecified; Z87.891 Personal history of nicotine dependence | CPT/HCPCS: 93228; 93229; 99214 ==

== ENCOUNTER → 2022-01-20 10:03 | Outpatient (BNVA) | payer MEDICARE, MEDICAID, SELFPAY | PROVIDERS: PCP Family Medicine; Visit Provider Internal Medicine Pulmonary Disease | DX: J43.2 Centrilobular emphysema (principal); Z99.81 Dependence on supplemental oxygen; G47.33 Obstructive sleep apnea (adult) (pediatric); Z12.2 Encounter for screening for malignant neoplasm of respiratory organs; R06.02 Shortness of breath; Z87.891 Personal history of nicotine dependence | CPT/HCPCS: 99214 ==

== ENCOUNTER → 2022-01-23 13:36 | Outpatient (BNVA) | payer MEDICARE, MEDICAID, SELFPAY | PROVIDERS: PCP Family Medicine; Visit Provider Internal Medicine Cardiovascular Disease | DX: R06.02 Shortness of breath (principal); R42 Dizziness and giddiness; I25.10 Atherosclerotic heart disease of native coronary artery without angina pectoris; I10 Essential (primary) hypertension; J43.2 Centrilobular emphysema; G47.33 Obstructive sleep apnea (adult) (pediatric); E11.9 Type 2 diabetes mellitus without complications; E78.5 Hyperlipidemia, unspecified; Z87.891 Personal history of nicotine dependence; Z79.84 Long term (current) use of oral hypoglycemic drugs | CPT/HCPCS: 99214 ==

== ENCOUNTER 2022-03-10 08:09 | Outpatient (CLI) | payer MEDICARE, MEDICAID, SELFPAY ==
--- NOTE | 2022-03-10 | ECG_ITS ---
[facility] Test Date: 2022-03-10 Pat Name: Bharti Lua Department: Room: Gender: Female Quarter Doper: : 1950 Requested By: Betsy Spencer Order Number: [id number] Markie MD: Betsy Spencer M.D. Interpretive Statements NAME OF STUDY: LEXISCAN SESTAMIBI STRESS TEST INDICATION: Chest Pain PROCEDURE: At the baseline, the blood pressure was 129/85 mmHg, oxygen saturation 98% with a heart rate of 66 bpm. The electrocardiogram showed normal sinus rhythm, normal axis. Nonspecific ST-T wave changes. The Lexiscan was infused over a period of 20 seconds. A total of 0.4 milligrams of Lexiscan was infused. The stress phase was continued for a total of 5 minutes. Heart rate at the end of the stress phase was 98 bpm, oxygen saturation 99% with a blood pressure of 126/56 mmHg. The EKG at the peak infusion revealed sinus rhythm with no significant ST-T wave changes. Sestamibi was injected 20 seconds after the Lexiscan infusion. Blood pressure at the end of the recovery phase was 133/59 mmHg, oxygen saturation 98% with a heart rate of 91 beats per minute. CONCLUSION: 1. No significant EKG changes with the LexiScan infusion. 2. No LexiScan induced chest pain or cardiac arrhythmia. 3. Normal blood pressure and heart rate response. 4. Sestamibi/sestamibi perfusion scan pending; see separate report. Electronically Signed On 03-13-2022 10:46:27 CDT by Betsy Spencer M.D. [id number]
[2022-03-10 08:25] VITALS: BMI 28.7
--- NOTE | 2022-03-10 08:27 | NMCV_ITS ---
NM wilfred perf SPECT r/s* [id number] Bharti Lua Age: 71 Gender: F : 1950 Exam Date: 03/10/2022 09:38 Ordering Phys: Betsy Spencer MD ([email or web address]) Technologist: LISA Tobar Exam Location: [facility] Indications: CHEST PAIN STRESS TEST Please see separate stress test report in [facility] for full findings IMAGE PROTOCOL Rest/Stress 1 Lexiscan Day Radiopharmaceutical Dose (mCi) Administration Site Administered by Rest: Tc-99m 10.8 IV LISA Wheeler Sestamibi Stress:Tc-99m 32.5 IV LISA Wheeler Sestamibi Rest: 10-Mar-2022 60 Discovery 630 Stress: 10-Mar-2022 30 Discovery 630 0.4mg Lexiscan. Supine position only as patient was unable to lay prone. SPECT RESULTS Technical Quality: Excellent Raw Data Analysis: Normal Image Corrections: No attenuation or motion correction applied Summed Stress Score: 0 Summed Rest Score: 1 Summed Difference Score: 0 PERFUSION FINDINGS Small size perfusion abnormality of mild severity of apical septal wall on rest images with improved tracer uptake on stress images. This is suggestive of attenuation artifact. FUNCTIONAL RESULTS (calculated via Gated SPECT) Stress Image LV EF (%): 72 Stress EDV (mL):64 TID: 0.88 Stress ESV (mL):18 FUNCTIONAL FINDINGS: The left ventricle is normal in size. Transient Ischemia Dilatation of 0.88. There is normal left ventricular systolic function. The left ventricular ejection fraction is normal with a value of 72%. There is normal left ventricular wall thickening with no regional wall motion abnormality. IMPRESSIONS 1. Myocardial perfusion imaging is normal. 2. Overall left ventricular systolic function is normal without regional wall motion abnormalities, LVEF=72%. 3. EKG portion of the study will be reported separately. Betsy Spencer MD (Electronically Signed) Final Date: 13 March 2022 12:21 S
[2022-03-10] MEDS: regadenoson 0.4 Mg/5 ml Syringe IVP (10:14)
[2022-03-10 10:25] VITALS: BP 133/59; PULSE 93
== END 2022-03-10 08:10 | disposition home or self-care (01) ==
LOC: CDL 08:13
PROVIDERS: PCP Family Medicine; Visit Provider Internal Medicine Cardiovascular Disease
DX: R07.9 Chest pain, unspecified (principal)
CPT/HCPCS: 78452; 93017; A9500; J2785

== ENCOUNTER → 2022-10-06 14:58 | Outpatient (BNVA) | payer MEDICARE, MEDICAID, SELFPAY | PROVIDERS: PCP Family Medicine; Visit Provider Family Medicine | DX: I25.10 Atherosclerotic heart disease of native coronary artery without angina pectoris (principal); E11.9 Type 2 diabetes mellitus without complications | CPT/HCPCS: 80053; 83036; 83690; 85025 ==

== ENCOUNTER → 2022-10-25 09:24 | Outpatient (BNVA) | payer MEDICARE, MEDICAID, SELFPAY | PROVIDERS: PCP Family Medicine; Visit Provider Podiatrist Foot & Ankle Surgery | DX: I73.9 Peripheral vascular disease, unspecified (principal); E11.42 Type 2 diabetes mellitus with diabetic polyneuropathy; M21.621 Bunionette of right foot; M20.41 Other hammer toe(s) (acquired), right foot; L90.9 Atrophic disorder of skin, unspecified; G62.9 Polyneuropathy, unspecified; Z79.4 Long term (current) use of insulin | CPT/HCPCS: 73630; 99204 ==

== ENCOUNTER → 2022-11-01 15:12 | Outpatient (BNVA) | payer MEDICARE, MEDICAID, SELFPAY | PROVIDERS: PCP Family Medicine; Visit Provider Nurse Practitioner Family | DX: I25.10 Atherosclerotic heart disease of native coronary artery without angina pectoris (principal); I10 Essential (primary) hypertension; I71.40 Abdominal aortic aneurysm, without rupture, unspecified; Z87.891 Personal history of nicotine dependence | CPT/HCPCS: 99214 ==

== ENCOUNTER → 2022-11-14 08:08 | Outpatient (BNVA) | payer MEDICARE, MEDICAID, SELFPAY | PROVIDERS: PCP Family Medicine; Visit Provider Surgery | DX: K41.90 Unilateral femoral hernia, without obstruction or gangrene, not specified as recurrent (principal); E04.1 Nontoxic single thyroid nodule; Z98.890 Other specified postprocedural states; Z87.19 Personal history of other diseases of the digestive system | CPT/HCPCS: 99203 ==

== ENCOUNTER 2022-11-20 12:06 | Day surgery (SDC) | payer MEDICARE, MEDICAID, SELFPAY ==
[2022-11-17 11:24] VITALS: BMI 33.0
[2022-11-20] VITALS (7 sets, daily range): BP systolic 110–123; BP diastolic 49–63; PULSE 60–85; RESP 16–18; TEMP 36.3–36.7; O2SAT 92–98
--- NOTE | 2022-11-20 12:11 | W.PM.OPSUD ---
Surgery/Procedure H&P Update DATE OF PROCEDURE: November 20, 2022 DATE H&P PERFORMED: 11/14/22 H&P UPDATE INFORMATION: I have reviewed H&P completed within last 30 days, I have examined patient prior to procedure and No changes to prior documentation PREOP DIAGNOSIS: Suspicious of angina PLANNED PROCEDURE: Operation Date: 11/20/22 13:45 Proposed Procedures p 79810 lap right femoral hernia with mesh, possible lap repair of recurrent incisional hernia with mesh Z98.890 ,Z87.19, K41.90(Right) - Zac Healy DO p possible lap repair of recurrent incisional hernia with mesh(Right) - Zca Healy DO
[2022-11-20 12:53] LABS: Glucose Point of Care 111 mg/dL (70-110)
--- NOTE | 2022-11-20 12:54 | P.ANESASSM_ITS ---
Pre-Anesthetic Assessment Height/Weight: Height 1.55 m Weight 79.379 kg O2 Del Method O2 Flow Rate 3 11/20/22 12:30 11/20/22 12:30 Preop Diagnosis: Right femoral hernia, possible recurrent incisional hernia Operation Date: 11/20/22 13:45 Proposed Procedures p 27741 lap right femoral hernia with mesh, possible lap repair of recurrent incisional hernia with mesh Z98.890 ,Z87.19, K41.90(Right) - Zac Healy DO p possible lap repair of recurrent incisional hernia with mesh(Right) - Zac Healy DO Familial anesthetic complications: None Was Beta Nicole taken within 24 hours: Yes Was Clonidine taken within 24 hours: N/A Last intake: Intake Last Liquid Date 11/20/22 Last Liquid Time 19:00 Last Solid Date 11/19/22 Last Solid Time 19:00 Social No alcohol and No tobacco former heavy smoker Exam alert, oriented x 3, clear to auscultation bilaterally and regular rate & rhythm Airway Mallampati: Class II Dentition: false Pulmonary Chronic Obstructive Pulmonary Disease (3 L NC) and Sleep Apnea efra lung disease many years ago CV/HEM Coronary Artery Disease and Hypertension Recent negative stress test Denies Chest pains AAA GI Gastroesophageal Reflux Disease Metabolic Diabetes Mellitus Anesthetic Plan ASA status: 4 Anesthesia: General Risk of > 500 ml blood loss (7ml/kg in children): No Medications/Allergies Home Medications Medication Instructions Recorded Confirmed Last Taken Type atorvastatin 20 mg PO BEDTIME 05/05/21 11/14/22 05/04/21 22:00 History magnesium oxide 400 mg PO DAILY 06/16/21 11/14/22 Unknown History blood pressure test kit-medium #1 ea 12/13/21 11/14/22 Unknown Rx [facility] metoprolol succinate 25 mg 37.5 mg PO BID #270 tabs 01/23/22 11/14/22 Unknown Rx tablet,extended release 24 hr Vitamin D3+K2 PO 10/06/22 11/14/22 Unknown History carboxymethylcellulose sodium 1 % 1 drp ophthalmic (eye) BID #15 mL 10/06/22 11/14/22 Unknown Rx eye drops (Artificial Tears (carboxymethylcellulose)) clonazepam 1 mg tablet (Klonopin) 1 mg PO TID PRN Anxiety #90 tabs 10/06/22 11/14/22 Unknown Rx duloxetine 60 mg capsule,delayed 90 mg PO DAILY #90 caps 10/06/22 11/14/22 Unknown Rx release ibuprofen 200 mg tablet (Advil) 200 mg PO Q6H PRN 10/06/22 11/14/22 Unknown History ipratropium 0.5 mg-albuterol 3 mg 3 ml inhalation Q6H PRN wheezing 10/06/22 11/14/22 Unknown Rx (2.5 mg base)/3 mL nebulization #90 mL soln multivit with 1 tab PO DAILY 10/06/22 11/14/22 Unknown History vlrtqiuo-xuzw-PF-lutein 8 mg iron-400 mcg-300 mcg tablet (Centrum Silver Women) nitroglycerin 0.4 mg sublingual 0.4 mg sublingual Q5M PRN chest 10/06/22 11/14/22 Unknown Rx tablet (Nitrostat) pain #25 tabs trazodone 100 mg tablet 400 mg PO DAILY 90 days #360 tabs 10/06/22 11/14/22 Unknown Rx turmeric 400 mg capsule mg PO 10/06/22 11/14/22 Unknown History Diabetic shoes with 3 pairs of #1 ea 10/25/22 11/14/22 Unknown Rx inserts fluticasone fur. 100 mcg-umeclid 1 inh inhalation DAILY COPD 11/06/22 11/14/22 Unknown History 62.5 mcg-vilant 25 mcg inhalat.powder (Trelegy Ellipta) diabetic shoe #1 ea 11/07/22 11/14/22 Unknown Rx aripiprazole 5 mg tablet (Abilify) 5 mg PO DAILY #60 tabs 11/08/22 11/14/22 Unknown Rx lancets 30 gauge and blood glucose #200 ea 11/08/22 11/14/22 Unknown Rx strips combo pack omeprazole 40 mg capsule,delayed 40 mg PO DAILY #30 caps 11/08/22 11/14/22 Unknown Rx release blood-glucose meter #1 ea 11/15/22 Unknown Rx insulin detemir U-100 100 unit/mL See Rx Instructions .Route 11/17/22 Unknown Rx (3 mL) subcutaneous pen (Levemir .COMPLEX #15 mL FlexPen) Allergies Allergy/AdvReac Type Severity Reaction Status Date / Time No Known Allergies Allergy Verified 11/17/22 11:11 [facility] Anesthesia Medical History (Updated 11/14/22 @ 08:49 by Zac Healy DO) Bone spur of ankle Chronic post-traumatic stress disorder Diabetes mellitus Encounter for screening for lung cancer Ex-cigarette smoker History of breast cancer History of cervical cancer History of ovarian cancer History of uterine cancer Hyperlipidemia Obstructive sleep apnea Persistent depressive disorder 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 Thyroid nodule Surgical History (Updated 11/14/22 @ 08:49 by Zac Healy DO) H/O ventral hernia repair History of bilateral mastectomy History of esophagogastroduodenoscopy (EGD) 15-16 yrs ago History of hysterectomy Hx of colonoscopy 17 yrs ago Hx of total knee replacement left knee Family History Mother Cancer female cancer Other Bleeding disorder CAD (coronary artery disease) Hypertension Lung disease Denies family history of Diabetes Clotting disorder Dementia Hyperlipidemia Psychiatric illness Chronic kidney disease (CKD) Anesthesia complication Stroke Social History Smoking and tobacco status: former smoker Quit status (tobacco): has quit using tobacco Year quit tobacco: 2006 [id number] Second hand smoke exposure: No Smoking risk assessment/counseling performed?: Yes Alcohol intake: never Caregiver/support person: Yes Lives independently: Yes Housing: House Marital status: / Current occupational status: disabled Pets and animals: Yes Current gender identity: Female Data Anesthesia Cardiac Studies: 2 Sestamibi Stress Test (Cardiology) 03/10 Cardiac Event Monitor 12/13/21
--- NOTE | 2022-11-20 12:57 | ECG_ITS ---
[facility] Test Date: 2022-11-20 Pat Name: Bharti Lua Department: Room: Gender: Female Professional Model: : 1950 Requested By: Kierra Bedoya Order Number: [id number] Markie MD: Romana Navarro M.D. Measurements Intervals [place] Rate: 65 P: 59 IL: 155 QRS: 40 QRSD: 93 T: 56 QT: 383 QTc: 400 Interpretive Statements SINUS RHYTHM MINIMAL ST DEPRESSION [0.025+ mV ST DEPRESSION] Compared to ECG 01/23/2017 21:28:33 ST (T wave) deviation now present T-wave abnormality no longer present Electronically Signed On 11-20-2022 23:40:56 CDT by Romana Navarro M.D. [id number]
[2022-11-20] MEDS: sodium chloride 0.9% 1,000 ML 30 ML IV (13:10)
[2022-11-20] MEDS: midazolam 1 mg/mL INJ 2 mL 2 MG IVP (13:19)
[2022-11-20 13:25] LABS: Basophils # 0.1 10^3/uL (0.0-0.1); Basophils % 0.8 %; Eosinophils # 0.1 10^3/uL (0.0-0.8); Eosinophils % 0.8 %; Hematocrit 31.6 % (37.0-47.0); Hemoglobin 10.2 g/dL (11.5-15.3); Lymphocytes # 1.8 10^3/uL (0.8-4.8); Lymphocytes % 28.2 %; Mean Corpuscular HGB Conc 32.3 g/dL (30.0-36.0); Mean Corpuscular Hemoglobin 31.1 pg (28.0-34.0); Mean Corpuscular Volume 96.3 fl (81-99); Mean Platelet Volume 9.6 fL (7.4-10.4); Monocytes # 0.6 10^3/uL (0.2-0.9); Monocytes % 9.7 %; Neutrophils # 3.74 10^3/uL (1.8-7.7); Neutrophils % 60.3 %; Nucleated Red Blood Cells % 0.3 %; Platelet Count 301 10^3/cmm (130-400); Red Blood Count 3.28 10^6/uL (4.1-5.3); Red Cell Distribution Width 13.4 % (12.1-15.1); White Blood Count 6.2 10^3/uL (4.0-10.0)
[2022-11-20] MEDS: ceFAZolin 2,000 MG in sodium chloride 0.9% (plus) 50 ML 100 MG IV (13:43)
[2022-11-20] MEDS: lidocaine-epi 2% 20 mL INJ 10 ML INJECTION (14:07)
--- NOTE | 2022-11-20 14:20 | SUR.OPER ---
1400 Nvoa placed by Cheyenne Titus, technical sales support specialist. Witnessed by George May RN.
--- NOTE | 2022-11-20 15:23 | P.OP_ITS ---
Operative Report Date of procedure: November 20, 2022 Pre-op diagnosis: Preop Diagnosis Right femoral hernia, possible recurrent incisional hernia Post-op diagnosis: other Post-op diagnosis: Right femoral hernia Extensive intra-abdominal adhesions without any other abdominal hernias Procedure done: Laparoscopic right femoral hernia with mesh Extensive lysis of adhesions Implants: Large right 3D max Bard mesh Specimens removed/disposition: None Surgeon: Dr. Zac Healy, Anesthesia: General Estimated blood loss (mL): 5 Complications: None apparent Brief History: This is a very pleasant 72-year-old female who presented to my office with a right femoral hernia. She also believes that she had other abdominal hernias although I could not palpate any in the office. We agreed on a laparoscopic repair of a right femoral hernia with mesh with possible repairs of other intra- abdominal hernias. The risks and benefits were explained and documented. Procedure: Patient was wheeled in operative room placed on the OR table in the supine position. The abdomen was inspected prepped and draped in usual sterile fashion. A timeout was performed. All present were in agreement. 2% lidocaine with epinephrine was used to anesthetize the skin. A 15 blade scalpel was used to make a stab incision over Duggan's point in the left upper quadrant. A Veress needle was used to create intra-abdominal insufflation to 15 mmHg. A 10 mm trocar was then placed into the center of the abdomen where the umbilicus would usually be. She had abdominoplasty and no longer has an umbilicus. A 5 mm trocar was then placed into the left hemiabdomen. There were extensive adhesions throughout the abdomen. Greater than 1 hour was spent lysing adhesions. A right femoral hernia was identified. No other abdominal hernias were identified. A 2 cm vertical incision was then made inferior to the central incision and dissection was carried down to the anterior rectus sheath. The a nterior rectus sheath was opened with electrocautery. The dissecting balloon was then placed into the space of Retzius and expanded for dissection. The care was then placed into the space of Retzius where the right femoral hernia was identified. Two 5 mm trocars were then placed in the midline suprapubically. The hernia sac was taken down bluntly with Kitners and graspers. A large right 3D max Bard mesh was then placed into the space of Retzius. The mesh was tacked into place onto the pubic bone and laid out nicely over the femoral hernia defect. We then went back into the abdomen. There was a defect in the peritoneum which was tacked shut with a secure strap. I then closed the 10 mm trocar site with an 0 Vicryl and Cam-Pradeep in the [id number]-sd-rpylt fashion. Insufflation was let out. Incisions were closed with 3-0 Vicryl in interrupted fashion to close the dermis and 4-0 Monocryl in interrupted fashion to close the skin. Dermabond was applied. Patient tolerated the procedure well.
[2022-11-20] MEDS: HYDROcodone-acetaminophen 10-325 mg Tablet 1 TAB PO (16:33)
--- NOTE | 2022-11-20 17:00 | ANE.PACU2 ---
Inpatient post-anesthesia follow up: Airway intact: Yes Vital signs: Temperature 97.5 F Pulse Rate 76 Respiratory Rate 18 Blood Pressure 120/53 Pulse Oximetry 96 Oxygen Delivery Me thod Room Air Oxygen Flow Rate 2 Fraction of Inspir ed Oxygen Hydration adequate: Yes Nausea and vomiting: No Pain level: 1 Mental status: Baseline
== END 2022-11-20 16:45 | disposition home or self-care (01) ==
PROVIDERS: Anesthesiology; PCP Family Medicine; Visit Provider Surgery
PROC: 0YQ74ZZ Repair Right Femoral Region, Percutaneous Endoscopic Approach (ICD-10-PCS; CPT 49329; principal; 2022-11-20 13:35)
DX: K41.90 Unilateral femoral hernia, without obstruction or gangrene, not specified as recurrent (principal); K66.0 Peritoneal adhesions (postprocedural) (postinfection); Z87.891 Personal history of nicotine dependence; Z85.3 Personal history of malignant neoplasm of breast; Z85.41 Personal history of malignant neoplasm of cervix uteri; Z85.42 Personal history of malignant neoplasm of other parts of uterus; Z85.43 Personal history of malignant neoplasm of ovary; E78.5 Hyperlipidemia, unspecified; G47.33 Obstructive sleep apnea (adult) (pediatric)
CPT/HCPCS: 49329; 49659; 36415; 36416; 51702; 82962; 85025; 93005; C1781; J0690; J2250; J2704; J2710; J3010; J3490; J7030

== ENCOUNTER 2022-11-30 17:47 | Emergency (ER) | payer MEDICARE, MEDICAID, SELFPAY ==
[2022-11-30] VITALS (14 sets, daily range): BP systolic 99–140; BP diastolic 40–86; PULSE 94–107; RESP 12–20; TEMP 36.9–37.2; O2SAT 92–100; BMI 28.1
--- NOTE | 2022-11-30 18:11 | XRR_ITS ---
PROCEDURE INFORMATION: Exam: XR Chest Exam date and time: 11/30/2022 6:22 PM Age: 72 years old Clinical indication: Pain; Chest pressure; Additional info: Cp TECHNIQUE: Imaging protocol: Radiologic exam of the chest. Views: 1 view. COMPARISON: 1. CR (CHEST, ) 10/12/2021 3:[address] lung screening [id number] 06/15/2021 2:03 PM FINDINGS: Lungs: Numerous nodular densities throughout the lungs appear grossly unchanged and appear to be calcified on comparison CT likely granulomas. No focal consolidation. Pleural spaces: Unremarkable. No pleural effusion. No pneumothorax. Heart/Mediastinum: Unremarkable. No cardiomegaly. Bones/joints: Stable bones. XR/XR chest 1V portable [id number] IMPRESSION: No acute findings.
--- NOTE | 2022-11-30 18:11 | CTR_ITS ---
PROCEDURE INFORMATION: Exam: CT Head Without Contrast Exam date and time: 11/30/2022 6:27 PM Age: 72 years old Clinical indication: Altered mental status/memory loss; Additional info: VELEZ TECHNIQUE: Imaging protocol: Computed tomography of the head without contrast. Radiation optimization: All CT scans at this facility use at least one of these dose optimization techniques: automated exposure control; mA and/or kV adjustment per patient size (includes targeted exams where dose is matched to clinical indication); or iterative reconstruction. REPORTING DATA: Count of CT and Cardiac NM exams in prior 12 months: This patient has received [address] and 0 known cardiac nuclear medicine studies in the 12 months prior to the current study. COMPARISON: CT head wo con* [id number] 10/12/2021 2:45 AM RADIATION DOSE METRICS: Total DLP (mGy-cm): 1036 FINDINGS: Brain: No acute infarct. No hemorrhage. Stable involutional changes of the brain. No mass effect. Cerebral ventricles: Stable ventricular size. No ventriculomegaly. Paranasal sinuses: Visualized sinuses are unremarkable. No fluid levels. Mastoid air cells: Moderate right mastoid effusion is increased. Bones/joints: Unremarkable. No acute fracture. Soft tissues: Unremarkable. CT/CT head wo con* [id number] IMPRESSION: 1. No acute intracranial abnormality. 2. Increased moderate right mastoid effusion. Correlate for mastoiditis.
[2022-11-30 18:23] LABS: ABG PCO2 36.3 mmHg (35-45); ABG PH Result 7.33 (7.35-7.45); Arterial Blood Gas Hematocrit 20.3 % (37-47); Blood Gas Allen Test Pos; Blood Gas LPM 3.5 %; Blood Gas Operator Identificat WALCI; Blood Gas Sample Site Radial, right; Blood Gas Sample Type Arterial; HCO3 ABG 19.3 mmol/L (22-26); Oxygen Device NC; PO2 ABG 78.8 mmHg (80.0-100.0)
--- NOTE | 2022-11-30 18:58 | W.ED.AMS ---
HPI - Altered Mental Status General: Chief Complaint: Altered Mental Status Stated Complaint: AMS Time Seen by Provider: 11/30/22 18:10 Source: patient and EMS Mode of arrival: EMS Limitations: altered mental status History of Present Illness: 72-year-old female who presents with EMS for increased weakness along with altered male status per EMS family found her in the ground this morning and she been having increasing weakness and confusion here she is able to tell me her name where she lives but she is quite confused she does not know the year. She is complaining of just generalized fatigue also complaining of some chest pain. No known fever Review of Systems General: Reports: ROS unobtainable due to mental status PFSH ED PFSH: Medical History Bone spur of ankle Chronic post-traumatic stress disorder Diabetes mellitus Encounter for screening for lung cancer Ex-cigarette smoker History of breast cancer History of cervical cancer History of ovarian cancer History of uterine cancer Hyperlipidemia Obstructive sleep apnea Persistent depressive disorder 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 Thyroid nodule Surgical History H/O ventral hernia repair History of bilateral mastectomy History of esophagogastroduodenoscopy (EGD) 15-16 yrs ago History of hysterectomy Hx of colonoscopy 17 yrs ago Hx of total knee replacement left knee Family History Mother Cancer female cancer Other Bleeding disorder CAD (coronary artery disease) Hypertension Lung disease Denies family history of Diabetes Clotting disorder Dementia Hyperlipidemia Psychiatric illness Chronic kidney disease (CKD) Anesthesia complication Stroke Social History Smoking and tobacco status: former smoker Quit status (tobacco): has quit using tobacco Year quit tobacco: 2006 [id number] Second hand smoke exposure: No Smoking risk assessment/counseling performed?: Yes Alcohol intake: never Substance/Drug Use: never Caregiver/support person: Yes Lives independently: Yes Housing: House Marital status: / Current occupational status: disabled Pets and animals: Yes Current gender identity: Female Physical Exam Const: COMMON NORMALS: negative for patient oriented x3 GENERAL APPEARANCE: ill appearing HENMT: COMMON NORMALS: normocephalic and atraumatic HEAD & SCALP: normocephalic and atraumatic Eye: COMMON NORMALS: Equal, round and reactive pupils present, EOMs intact bilaterally and conjunctivae normal CONJUNCTIVA: Yes conjunctivae normal PUPIL: Yes Equal, round and reactive pupils present Neck/C-Spine: COMMON NORMALS: full ROM and supple Chest: COMMONS NORMALS: normal inspection of the chest Resp: COMMON NORMALS: normal respiratory effort and clear to auscultation bilaterally EFFORT & INSPECTION: Yes able to speak in complete sentences AUSCULTATION: clear to auscultation bilaterally Cardio: COMMON NORMALS: regular rate and regular rhythm RATE: regular rate RHYTHM: regular rhythm GI: COMMON NORMALS: Normal to inspection, nondistended, normoactive bowel sounds present, Soft to palpation and non-tender INSPECTION: Yes normal to inspection PALPATION: Yes Soft to palpation Back/Pelvis: COMMON NORMALS: thoracic and lumbar spine normal to inspection and no thoracic nor lumbar tenderness Extremity: COMMON NORMALS: normal to inspection and full ROM Neuro: COMMON NORMALS: negative for patient oriented x3 Psych: COMMON NORMALS: cooperative Skin: COMMON NORMALS: no rashes or lesions noted GENERAL SKIN EXAM: no rashes or lesions noted Course Vital Signs: Vital signs: Vital Signs Temperature 98.4 F 11/30/22 18:00 Pulse Rate 104 H 11/30/22 21:00 Respiratory Rate 19 H 11/30/22 21:00 Blood Pressure 110/62 11/30/22 21:00 Pulse Oximetry 98 11/30/22 21:00 Oxygen Delivery Me thod Nasal Cannula 11/30/22 18:00 Oxygen Flow Rate 4 11/30/22 18:00 MDM - Altered Mental Status Medical Decision Making Patient presents here with altered mental status she is found to be dehydrated with acute kidney injury along with anemia I did a rectal exam showed no signs of bleeding Hemoccult was negative patient given IV fluids we will transfuse I spoke to the hospitalist will admit at this time. Medical Records I reviewed the patient's medical records. Lab Data I reviewed the patient's lab results. 11/30/22 18:51 11/30/22 18:51 Radiology Impressions Chest X-Ray 11/30/22 18:11 IMPRESSION: No acute findings. Head CT 11/30/22 18:11 IMPRESSION: 1. No acute intracranial abnormality. 2. Increased moderate right mastoid effusion. Correlate for mastoiditis. Laboratory Results WBC 15.9 10^3/uL (4.0-10.0) H 11/30/22 18:51 RBC 2.10 10^6/uL (4.1-5.3) L 11/30/22 18:51 Hgb 6.4 g/dL (11.5-15.3) L* 11/30/22 18:51 Hct 19.4 % (37.0-47.0) L* 11/30/22 18:51 MCV 92.4 fl (81-99) 11/30/22 18:51 MCH 30.5 pg (28.0-34.0) 11/30/22 18:51 MCHC 33.0 g/dL (30.0-36.0) 11/30/22 18:51 RDW 14.3 % (12.1-15.1) 11/30/22 18:51 Plt Count 722 10^3/cmm (130-400) H 11/30/22 18:51 MPV 9.4 fL (7.4-10.4) 11/30/22 18:51 Lymph % (Auto) Not Reportable 11/30/22 18:51 [place] % (Auto) Not Reportable 11/30/22 18:51 Lymph # (Auto) Not Reportable 11/30/22 18:51 [place] # (Auto) Not Reportable 11/30/22 18:51 Total Counted 100 (0-100) 11/30/22 18:51 Atypical Lymphs % Not Reportable 11/30/22 18:51 Absolute Neutrophils 13.2 10^3/cmm (1.4-6.5) H 11/30/22 18:51 Segmented Neutrophils 82 % 11/30/22 18:51 Abs Segm Neuts (Man) 13.0 10/cmm (1.6-7.1) H 11/30/22 18:51 Band Neutrophils 1.0 % 11/30/22 18:51 Abs Band Neuts (Man) 0.2 10^3/cmm (0.0-1.2) 11/30/22 18:51 Lymphocytes (Manual) 3 % 11/30/22 18:51 Monocytes (Manual) 8.0 % 11/30/22 18:51 Absolute Monocytes 1.3 10^3/cmm (0.1-0.6) H 11/30/22 18:51 Eosinophils (Manual) 0 % 11/30/22 18:51 Absolute Eosinophils 0.0 10^3/cmm (0.0-0.7) 11/30/22 18:51 Basophils (Manual) 0.0 % 11/30/22 18:51 Absolute Basophils 0.0 10^3/cmm (0.0-0.2) 11/30/22 18:51 Metamyelocytes 3.0 % 11/30/22 18:51 Myelocytes 1.0 % 11/30/22 18:51 Nucleated RBCs 2.0 /100WBC (0-1) H 11/30/22 18:51 Platelet Estimate Increased (Normal) H 11/30/22 18:51 PT 14.00 SECONDS (12.1-14.9) 11/30/22 18:51 INR 1.05 (0.8-1.2) 11/30/22 18:51 Specimen Type Arterial 11/30/22 18:12 Sample Site Radial, right 11/30/22 18:12 ABG pH 7.33 (7.35-7.45) L 11/30/22 18:12 ABG pCO2 36.3 mmHg (35-45) 11/30/22 18:12 ABG pO2 78.8 mmHg (80.0-100.0) L 11/30/22 18:12 ABG HCO3 19.3 mmol/L (22-26) L 11/30/22 18:12 ABG Base Excess -6.0 mmol/L (-2.0-2.0) L 11/30/22 18:12 Jose L Test Pos 11/30/22 18:12 Hematocrit 20.3 % (37-47) L 11/30/22 18:12 O2 Delivery Device Nc 11/30/22 18:12 O2 Liters/Min 3.5 % 11/30/22 18:12 Artificial [employer]eding [employer] Supervisor ID Georgiana 11/30/22 18:12 Sodium 127 mmol/L (136-145) L 11/30/22 18:51 Potassium 4.2 mmol/L (3.5-5.1) 11/30/22 18:51 Chloride 89 mmol/L (98-107) L 11/30/22 18:51 Carbon Dioxide 19 mmol/L (22-29) L 11/30/22 18:51 Anion Gap 23.2 (5-19) H 11/30/22 18:51 BUN 125 mg/dL (8-23) H* D 11/30/22 18:51 Creatinine 5.3 mg/dL (0.5-0.9) H 11/30/22 18:51 GFR Calculation Not Reportable 11/30/22 18:51 Glucose 171 mg/dL (65-115) H 11/30/22 18:51 Calculated Osmolality 308 mOsm/kg (285-295) H 11/30/22 18:51 Lactic Acid 0.9 mmol/L (0.5-2.2) 11/30/22 20:50 Calcium 8.8 mg/dL (8.5-10.5) 11/30/22 18:51 Total Bilirubin 0.8 mg/dL (0.15-1.2) 11/30/22 18:51 AST 13 U/L (0-32) 11/30/22 18:51 ALT < 5 U/L (0-33) 11/30/22 18:51 Alkaline Phosphatase 81 U/L (35-105) 11/30/22 18:51 Ammonia 24 umol/L (11-51) 11/30/22 18:51 Creatine Kinase 111 U/L (26-192) 11/30/22 18:51 Troponin T Baseline 20 ng/L (0-10) H 11/30/22 18:51 Troponin T 120 Minute 16.84 ng/L (0-10) H 11/30/22 20:50 Delta Troponin T -3.16 ABS# (0-10) L 11/30/22 20:50 Total Protein 7.4 g/dL (6.6-8.7) 11/30/22 18:51 Albumin 3.4 g/dL (3.5-5.2) L 11/30/22 18:51 Globulin 4.0 g/dL (1.3-4.6) 11/30/22 18:51 Urine Color Telma (Yellow) 11/30/22 21:06 Urine Appearance Hazy (CLEAR) A 11/30/22 21:06 Urine pH 5 (5-7) 11/30/22 21:06 Ur Specific [place] 1.015 (1.005-1.030) 11/30/22 21:06 Urine Protein 2+ (Negative) H 11/30/22 21:06 Urine Glucose (UA) Trace (Normal) H 11/30/22 21:06 Urine Ketones 1+ (Negative) H 11/30/22 21:06 Urine Blood 3+ (Negative) H 11/30/22 21:06 Urine Nitrate Negative (Negative) 11/30/22 21:06 Urine Bilirubin Neg (Negative) 11/30/22 21:06 Urine Urobilinogen Norm mg/dL (Negative) 11/30/22 21:06 Ur Leukocyte Esterase 2+ (Negative) H 11/30/22 21:06 Urine RBC >100 /hpf (0-2) H 11/30/22 21:06 Urine WBC 55-80 /hpf (0-5) H 11/30/22 21:06 Ur Squamous Epith Cells None /hpf (0-5) 11/30/22 21:06 Amorphous Sediment Trace /hpf 11/30/22 21:06 Urine Bacteria Trace /hpf (NONE) 11/30/22 21:06 Blood Type O Positive 11/30/22 20:50 Rho(D) Type Positive 11/30/22 20:50 EKG Data EKG 1: I personally reviewed and interpreted this EKG as follows: EKG interpretation date: 11/30/22 EKG interpretation time: 21:21 Interpretation: sinus tach hr [address] or t wave abnormalities qrs 96 qtc 401 Critical Care Time Critical Care Time: Critical Care Time: Yes Total Critical Care Time: 40 Attestation: The high probability of a clinically significant, sudden or life threatening deterioration of the patient's renal system(s) required my full and direct attention, intervention and personal management. The critical care time is as shown. This time is in addition to time spent performing any reported procedures but includes the following: [x] Data and vital sign review and interpretation [x] Patient assessment, examination and intervention [x] Documentation [x] Medication orders and management Discharge Plan Discharge Patient Disposition: Admitted As Inpatient Clinical Impression: Acute kidney injury, Altered mental status, Anemia Condition: Stable Prescriptions: No Action magnesium oxide 400 mg magnesium capsule 400 mg PO DAILY (DME) blood pressure test kit-medium [Schaller Chek Blood Pressure] Kit See Rx Instructions .Route Qty: 1 0RF Rx Instructions: As directed Trelegy Ellipta 100-62.5-25 mcg blister with device 1 inh inhalation DAILY metoprolol succinate 25 mg tablet extended release 24 hr 37.5 mg PO BID Qty: 270 3RF ibuprofen [Advil] 200 mg tablet 200 mg PO Q6H PRN (Reason: Pain) Hold Instructions: Resume on 11/23/22. Centrum Silver Women 8 mg iron-400 mcg-300 mcg tablet 1 tab PO DAILY turmeric 400 mg capsule 400 mg PO DAILY Artificial Tears (cmc) 1 % drops 1 drp ophthalmic (eye) BID Qty: 15 1RF Klonopin 1 mg tablet 1 mg PO TID PRN (Reason: Anxiety) Qty: 90 2RF nitroglycerin [Nitrostat] 0.4 mg tablet, sublingual 0.4 mg sublingual Q5M PRN (Reason: chest pain) Qty: 25 3RF Rx Instructions: do not exceed 3 doses per episode trazodone 100 mg tablet 400 mg PO DAILY 90 Days Qty: 360 1RF Patient Comments: pt states she might take 4 tabs or 2 tabs depending on how she feels (DME) Diabetic shoes with 3 pairs of inserts See Rx Instructions .Route .MEDSUPPLY Qty: 1 0RF Rx Instructions: As directed HOME (DME) diabetic shoe See Rx Instructions .Route .MEDSUPPLY Qty: 1 0RF Rx Instructions: As directed omeprazole 40 mg capsule,delayed release(DR/EC) 40 mg PO DAILY Qty: 30 0RF (DME) lancets-blood glucose strips 30 gauge combo pack See Rx Instructions .Route Qty: 200 2RF Rx Instructions: Check blood glucose levels 4x daily (DME) blood-glucose meter Misc See Rx Instructions .Route Qty: 1 0RF Rx Instructions: Check blood sugar 4x daily Levemir FlexPen 100 unit/mL (3 mL) insulin pen See Rx Instructions .ROUTE .COMPLEX Qty: 15 0RF Dose Instruction: INJECT 35 UNITS (0.35 ML) SUBCUTANEOUSLY DAILY Rx Instructions: INJECT 30 UNITS (0.30 ML) SUBCUTANEOUSLY DAILY atorvastatin 20 mg Tablet 20 mg PO BEDTIME Qty: 0 levalbuterol tartrate 45 mcg/actuation HFA aerosol inhaler 2 puff INHALATION Q4H Abilify 5 mg tablet 5 mg PO BEDTIME duloxetine 60 mg capsule,delayed release(DR/EC) 60 mg PO DAILY diclofenac sodium 75 mg tablet,delayed release (DR/EC) 75 mg PO BID roflumilast 500 mcg tablet 500 mcg PO DAILY hydrocodone-acetaminophen 10-325 mg tablet 1 tab PO Q6H PRN (Reason: pain) Qty: 20 0RF docusate sodium [DOK] 100 mg capsule 100 mg PO BID Qty: 14 0RF Referrals: Darius Hernández MD [Primary Care Provider] - Coding Level of Care Code ED Type Disk Quality Control Supervisor for Phil Guzman
[2022-11-30 19:01] LABS: Mean Corpuscular Hemoglobin 30.5 pg (28.0-34.0); Mean Corpuscular Volume 92.4 fl (81-99); Mean Platelet Volume 9.4 fL (7.4-10.4); Platelet Count 722 10^3/cmm (130-400); Red Cell Distribution Width 14.3 % (12.1-15.1); White Blood Count 15.9 10^3/uL (4.0-10.0)
[2022-11-30 19:21] LABS: INR 1.05 (0.8-1.2)
[2022-11-30 19:28] LABS: Troponin(5th) Baseline 20 ng/L (0-10)
[2022-11-30 19:31] LABS: Alanine Aminotransferase < 5 U/L (0-33); Albumin Level 3.4 g/dL (3.5-5.2); Alkaline Phosphatase 81 U/L (35-105); Anion Gap 23.2 (5-19); Aspartate Amino Transferase 13 U/L (0-32); Calcium 8.8 mg/dL (8.5-10.5); Carbon Dioxide 19 mmol/L (22-29); Chloride 89 mmol/L (98-107); Creatine Phosphokinase 111 U/L (26-192); Glucose 171 mg/dL (65-115); Potassium 4.2 mmol/L (3.5-5.1); Sodium 127 mmol/L (136-145); Total Bilirubin 0.8 mg/dL (0.15-1.2); Total Protein 7.4 g/dL (6.6-8.7)
--- NOTE | 2022-11-30 19:44 | PC.NURSE ---
Pt hooked up to continuous bedside cardiac monitoring.
[2022-11-30 19:53] LABS: Osmolality Calculated 308 mOsm/kg (285-295)
[2022-11-30 19:54] LABS: Blood Urea Nitrogen 125 mg/dL (8-23)
[2022-11-30 20:04] LABS: Hematocrit 19.4 % (37.0-47.0); Hemoglobin 6.4 g/dL (11.5-15.3)
[2022-11-30 20:05] LABS: Slide Review Slide Review Perform
[2022-11-30 20:06] LABS: Band Neutrophils Absolute 0.2 10^3/cmm (0.0-1.2); Eosinophils 0 %; Lymphocytes 3 %; Monocytes Absolute 1.3 10^3/cmm (0.1-0.6); Platelet Estimate Increased (Normal); Total Cells Counted 100 (0-100)
[2022-11-30 20:07] LABS: Absolute Neutrophil 13.2 10^3/cmm (1.4-6.5); Segmented Neutrophils 82 %
[2022-11-30] MEDS: sodium chloride 0.9% 1,000 ML 999 ML IV ×2 (20:09→21:37)
[2022-11-30 20:10] LABS: Ammonia 24 umol/L (11-51)
--- NOTE | 2022-11-30 21:21 | ECG_ITS ---
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 Measurements Intervals [place] Rate: 101 P: 72 TN: 131 QRS: 45 QRSD: 96 T: 59 QT: 343 QTc: 446 Interpretive Statements SINUS TACHYCARDIA NONSPECIFIC ST & T-WAVE ABNORMALITY ABNORMAL RHYTHM ECG Compared to ECG 11/20/2022 12:57:23 T-wave abnormality now present Sinus rhythm no longer present ST (T wave) deviation no longer present Electronically Signed On 12-01-2022 22:19:31 CDT by Romana Navarro M.D. [id number]
[2022-11-30 21:26] LABS: Troponin 5 2HR 16.84 ng/L (0-10)
[2022-11-30 21:27] LABS: Lactic Sepsis W/Reflex 0.9 mmol/L (0.5-2.2)
--- NOTE | 2022-11-30 21:27 | CTR_ITS ---
PROCEDURE INFORMATION: Exam: CT Chest Without Contrast; Diagnostic Exam date and time: 11/30/2022 9:59 PM Age: 72 years old Clinical indication: Other: Gross hematuria; Abdominal pain; Other: Confusion; Chest pressure; Prior surgery; Surgery date: 6+ months; Surgery type: B/l mastectomy, hysterectomy, hernia repair, egd TECHNIQUE: Imaging protocol: Diagnostic computed tomography of the chest without contrast. Radiation optimization: All CT scans at this facility use at least one of these dose optimization techniques: automated exposure control; mA and/or kV adjustment per patient size (includes targeted exams where dose is matched to clinical indication); or iterative reconstruction. REPORTING DATA: Count of CT and Cardiac NM exams in prior 12 months: This patient has received [address] and 0 known cardiac nuclear medicine studies in the 12 months prior to the current study. COMPARISON: CT lung screening [id number] 06/15/2021 2:03 PM RADIATION DOSE METRICS: Total DLP (mGy-cm): 300.6 FINDINGS: Lungs: Numerous calcified and noncalcified pulmonary nodules are again present which appear grossly unchanged. No definite new nodule. Pleural spaces: Small right pleural effusion with adjacent consolidation. Heart: Unremarkable. No cardiomegaly. No pericardial effusion. Coronary arteries: Marked coronary artery atherosclerosis. Lymph nodes: Unremarkable. No enlarged lymph nodes. Vasculature: Unremarkable. No aortic aneurysm. Diaphragm: Small-sized hiatal hernia. Bones/joints: T4 compression fracture status post vertebroplasty is unchanged. Old right-sided rib fractures. Soft tissues: Unremarkable. PROCEDURE INFORMATION: Exam: CT Abdomen And Pelvis Without Contrast Exam date and time: 11/30/2022 9:59 PM Age: 72 years old Clinical indication: Other: Gross hematuria; Abdominal pain; Other: Confusion; Chest pressure; Prior surgery; Surgery date: 6+ months; Surgery type: B/l mastectomy, hysterectomy, hernia repair, egd TECHNIQUE: Imaging protocol: Computed tomography of the abdomen and pelvis without contrast. Radiation optimization: All CT scans at this facility use at least one of these dose optimization techniques: automated exposure control; mA and/or kV adjustment per patient size (includes targeted exams where dose is matched to clinical indication); or iterative reconstruction. REPORTING DATA: Count of CT and Cardiac NM exams in prior 12 months: This patient has received [address] and 0 known cardiac nuclear medicine studies in the 12 months prior to the current study. COMPARISON: [place] [id number] 11/06/2016 2:34 PM RADIATION DOSE METRICS: Total DLP (mGy-cm): 630.8 FINDINGS: Diaphragm: Small-sized hiatal hernia. Liver: Normal. No mass. Gallbladder and bile ducts: The gallbladder is distended with small gallstone. Pancreas: Parenchymal pancreatic calcifications are unchanged and consistent with chronic pancreatitis. Spleen: Normal. No splenomegaly. Adrenal glands: Mass in the left adrenal gland measuring 2.6 cm consistent with an adenoma is unchanged. Kidneys and ureters: The right kidney has mild hydroureteronephrosis without obstructing stone visible. Stomach and bowel: Unremarkable. No obstruction. No mucosal thickening. Appendix: No evidence of appendicitis. Intraperitoneal space: Pneumoperitoneum is also seen in the lower abdomen and pelvis. Retroperitoneal space: There is moderate fluid in the right retroperitoneum some of which is high density and suspicious for blood. In the pelvis there is also a moderate amount of hemoperitoneum present. Vasculature: Infrarenal abdominal aortic aneurysm measures 4.6 cm maximum size previously 3.2 cm now larger with persistent atherosclerotic changes. Lymph nodes: Unremarkable. No enlarged lymph nodes. Urinary bladder: The bladder is decompressed by a Nova. Reproductive: Hysterectomy changes are stable. Bones/joints: Unremarkable. No acute fracture. Soft tissues: Unremarkable. CT/CT chest [facility] [id number] IMPRESSION: 1. Small right pleural effusion with adjacent consolidation or atelectasis. Correlate for pneumonia. Stable marked emphysema. 2. Numerous calcified and noncalcified nodular densities in the lungs are grossly unchanged. IMPRESSION: 1. Moderate volume hemoperitoneum in the right retroperitoneum and pelvis with pneumoperitoneum also seen. No definite perforated viscus is seen on CT. Consider bladder injury given the majority of the blood is in the pelvis. Recommend clinical correlation. 2. Infrarenal abdominal aortic aneurysm is enlarging measuring 4.6 cm (previously 3.2 cm). 3. Mild right hydronephrosis without obstructing stone visible. Correlate with urinalysis for infection.
[2022-11-30 21:30] LABS: Troponin 5 2HR Delta -3.16 ABS# (0-10)
[2022-11-30 21:52] LABS: Bilirubin Urine Neg (Negative); Blood Urine 3+ (Negative); Glucose Urine UA Trace (Normal); Ketones Urine 1+ (Negative); Nitrate Urine Negative (Negative); Protein Urine 2+ (Negative); Specific Gravity, Urine 1.015 (1.005-1.030); Urine Appearance Hazy (CLEAR); Urine Color Amber (Yellow); Urobilinogen Urine Norm (Negative); pH Urine 5 (5-7)
[2022-11-30 21:53] LABS: Leukocyte Esterase Urine 2+ (Negative)
[2022-11-30 21:54] LABS: Add Urine Microscopic? YES; Bacteria Urine TRACE /hpf; RBC Urine >100 /hpf (0-2); WBC Urine 55-80 /hpf (0-5)
[2022-11-30 21:55] LABS: Add Urine Culture? Yes; Amorphous Sediment Urine TRACE /hpf
--- NOTE | 2022-11-30 23:13 | W.ED.AMS ---
HPI - Altered Mental Status General: Chief Complaint: Altered Mental Status Stated Complaint: AMS Time Seen by Provider: 11/30/22 18:10 Source: patient and EMS Mode of arrival: EMS Limitations: altered mental status PFSH ED PFSH: Medical History Bone spur of ankle Chronic post-traumatic stress disorder Diabetes mellitus Encounter for screening for lung cancer Ex-cigarette smoker History of breast cancer History of cervical cancer History of ovarian cancer History of uterine cancer Hyperlipidemia Obstructive sleep apnea Persistent depressive disorder 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 Thyroid nodule Surgical History H/O ventral hernia repair History of bilateral mastectomy History of esophagogastroduodenoscopy (EGD) 15-16 yrs ago History of hysterectomy Hx of colonoscopy 17 yrs ago Hx of total knee replacement left knee Family History Mother Cancer female cancer Other Bleeding disorder CAD (coronary artery disease) Hypertension Lung disease Denies family history of Diabetes Clotting disorder Dementia Hyperlipidemia Psychiatric illness Chronic kidney disease (CKD) Anesthesia complication Stroke Social History Smoking and tobacco status: former smoker Quit status (tobacco): has quit using tobacco Year quit tobacco: 2006 [id number] Second hand smoke exposure: No Smoking risk assessment/counseling performed?: Yes Alcohol intake: never Substance/Drug Use: never Caregiver/support person: Yes Lives independently: Yes Housing: House Marital status: / Current occupational status: disabled Pets and animals: Yes Current gender identity: Female Physical Exam Urinary Catheter Management: Nova: Cath Placed During This Visit: yes Urinary Catheter Date of Insertion: 11/30/22 Urinary Catheter Time of Insertion: 21:00 Course Vital Signs: Vital signs: Vital Signs Temperature 98.4 F 11/30/22 18:00 Pulse Rate 98 11/30/22 23:00 Respiratory Rate 17 11/30/22 23:00 Blood Pressure 112/65 11/30/22 23:00 Pulse Oximetry 100 11/30/22 23:00 Oxygen Delivery Me thod Nasal Cannula 11/30/22 18:00 Oxygen Flow Rate 4 11/30/22 18:00 MDM - Altered Mental Status Lab Data 11/30/22 18:51 11/30/22 18:51 Radiology Impressions Chest X-Ray 11/30/22 18:11 IMPRESSION: No acute findings. Head CT 11/30/22 18:11 IMPRESSION: 1. No acute intracranial abnormality. 2. Increased moderate right mastoid effusion. Correlate for mastoiditis. Chest/Abdomen/Pelvis CT 11/30/22 21:27 IMPRESSION: 1. Small right pleural effusion with adjacent consolidation or atelectasis. Correlate for pneumonia. Stable marked emphysema. 2. Numerous calcified and noncalcified nodular densities in the lungs are grossly unchanged. IMPRESSION: 1. Moderate volume hemoperitoneum in the right retroperitoneum and pelvis with pneumoperitoneum also seen. No definite perforated viscus is seen on CT. Consider bladder injury given the majority of the blood is in the pelvis. Recommend clinical correlation. 2. Infrarenal abdominal aortic aneurysm is enlarging measuring 4.6 cm (previously 3.2 cm). 3. Mild right hydronephrosis without obstructing stone visible. Correlate with urinalysis for infection. ADDENDUM: 11/30/22 2254 THIS REPORT CONTAINS FINDINGS THAT MAY BE CRITICAL TO PATIENT CARE. The findings were verbally communicated via telephone conference with IBRAHIMA Cruz at 10:50 PM CDT on 11/30/2022. The findings were acknowledged and understood. Laboratory Results WBC 15.9 10^3/uL (4.0-10.0) H 11/30/22 18:51 RBC 2.10 10^6/uL (4.1-5.3) L 11/30/22 18:51 Hgb 6.4 g/dL (11.5-15.3) L* 11/30/22 18:51 Hct 19.4 % (37.0-47.0) L* 11/30/22 18:51 MCV 92.4 fl (81-99) 11/30/22 18:51 MCH 30.5 pg (28.0-34.0) 11/30/22 18:51 MCHC 33.0 g/dL (30.0-36.0) 11/30/22 18:51 RDW 14.3 % (12.1-15.1) 11/30/22 18:51 Plt Count 722 10^3/cmm (130-400) H 11/30/22 18:51 MPV 9.4 fL (7.4-10.4) 11/30/22 18:51 Lymph % (Auto) Not Reportable 11/30/22 18:51 [place] % (Auto) Not Reportable 11/30/22 18:51 Lymph # (Auto) Not Reportable 11/30/22 18:51 [place] # (Auto) Not Reportable 11/30/22 18:51 Total Counted 100 (0-100) 11/30/22 18:51 Atypical Lymphs % Not Reportable 11/30/22 18:51 Absolute Neutrophils 13.2 10^3/cmm (1.4-6.5) H 11/30/22 18:51 Segmented Neutrophils 82 % 11/30/22 18:51 Abs Segm Neuts (Man) 13.0 10/cmm (1.6-7.1) H 11/30/22 18:51 Band Neutrophils 1.0 % 11/30/22 18:51 Abs Band Neuts (Man) 0.2 10^3/cmm (0.0-1.2) 11/30/22 18:51 Lymphocytes (Manual) 3 % 11/30/22 18:51 Monocytes (Manual) 8.0 % 11/30/22 18:51 Absolute Monocytes 1.3 10^3/cmm (0.1-0.6) H 11/30/22 18:51 Eosinophils (Manual) 0 % 11/30/22 18:51 Absolute Eosinophils 0.0 10^3/cmm (0.0-0.7) 11/30/22 18:51 Basophils (Manual) 0.0 % 11/30/22 18:51 Absolute Basophils 0.0 10^3/cmm (0.0-0.2) 11/30/22 18:51 Metamyelocytes 3.0 % 11/30/22 18:51 Myelocytes 1.0 % 11/30/22 18:51 Nucleated RBCs 2.0 /100WBC (0-1) H 11/30/22 18:51 Platelet Estimate Increased (Normal) H 11/30/22 18:51 PT 14.00 SECONDS (12.1-14.9) 11/30/22 18:51 INR 1.05 (0.8-1.2) 11/30/22 18:51 Specimen Type Arterial 11/30/22 18:12 Sample Site Radial, right 11/30/22 18:12 ABG pH 7.33 (7.35-7.45) L 11/30/22 18:12 ABG pCO2 36.3 mmHg (35-45) 11/30/22 18:12 ABG pO2 78.8 mmHg (80.0-100.0) L 11/30/22 18:12 ABG HCO3 19.3 mmol/L (22-26) L 11/30/22 18:12 ABG Base Excess -6.0 mmol/L (-2.0-2.0) L 11/30/22 18:12 Jose L Test Pos 11/30/22 18:12 Hematocrit 20.3 % (37-47) L 11/30/22 18:12 O2 Delivery Device Nc 11/30/22 18:12 O2 Liters/Min 3.5 % 11/30/22 18:12 Oyster Bed Worker ID Wal[place] 11/30/22 18:12 Sodium 127 mmol/L (136-145) L 11/30/22 18:51 Potassium 4.2 mmol/L (3.5-5.1) 11/30/22 18:51 Chloride 89 mmol/L (98-107) L 11/30/22 18:51 Carbon Dioxide 19 mmol/L (22-29) L 11/30/22 18:51 Anion Gap 23.2 (5-19) H 11/30/22 18:51 BUN 125 mg/dL (8-23) H* D 11/30/22 18:51 Creatinine 5.3 mg/dL (0.5-0.9) H 11/30/22 18:51 GFR Calculation Not Reportable 11/30/22 18:51 Glucose 171 mg/dL (65-115) H 11/30/22 18:51 Calculated Osmolality 308 mOsm/kg (285-295) H 11/30/22 18:51 Lactic Acid 0.9 mmol/L (0.5-2.2) 11/30/22 20:50 Calcium 8.8 mg/dL (8.5-10.5) 11/30/22 18:51 Total Bilirubin 0.8 mg/dL (0.15-1.2) 11/30/22 18:51 AST 13 U/L (0-32) 11/30/22 18:51 ALT < 5 U/L (0-33) 11/30/22 18:51 Alkaline Phosphatase 81 U/L (35-105) 11/30/22 18:51 Ammonia 24 umol/L (11-51) 11/30/22 18:51 Creatine Kinase 111 U/L (26-192) 11/30/22 18:51 Troponin T Baseline 20 ng/L (0-10) H 11/30/22 18:51 Troponin T 120 Minute 16.84 ng/L (0-10) H 11/30/22 20:50 Delta Troponin T -3.16 ABS# (0-10) L 11/30/22 20:50 Total Protein 7.4 g/dL (6.6-8.7) 11/30/22 18:51 Albumin 3.4 g/dL (3.5-5.2) L 11/30/22 18:51 Globulin 4.0 g/dL (1.3-4.6) 11/30/22 18:51 Urine Color Telma (Yellow) 11/30/22 21:06 Urine Appearance Hazy (CLEAR) A 11/30/22 21:06 Urine pH 5 (5-7) 11/30/22 21:06 Ur Specific [place] 1.015 (1.005-1.030) 11/30/22 21:06 Urine Protein 2+ (Negative) H 11/30/22 21:06 Urine Glucose (UA) Trace (Normal) H 11/30/22 21:06 Urine Ketones 1+ (Negative) H 11/30/22 21:06 Urine Blood 3+ (Negative) H 11/30/22 21:06 Urine Nitrate Negative (Negative) 11/30/22 21:06 Urine Bilirubin Neg (Negative) 11/30/22 21:06 Urine Urobilinogen Norm mg/dL (Negative) 11/30/22 21:06 Ur Leukocyte Esterase 2+ (Negative) H 11/30/22 21:06 Urine RBC >100 /hpf (0-2) H 11/30/22 21:06 Urine WBC 55-80 /hpf (0-5) H 11/30/22 21:06 Ur Squamous Epith Cells None /hpf (0-5) 11/30/22 21:06 Amorphous Sediment Trace /hpf 11/30/22 21:06 Urine Bacteria Trace /hpf (NONE) 11/30/22 21:06 Blood Type Cancelled 11/30/22 20:50 Blood Type O Positive 11/30/22 20:50 Rho(D) Type Cancelled 11/30/22 20:50 Rho(D) Type Positive 11/30/22 20:50 Antibody Screen Cancelled 11/30/22 20:50 Antibody Screen Negative 11/30/22 20:50 Crossmatch See Detail 11/30/22 20:50 Discharge Plan Discharge Patient Disposition: Admitted As Inpatient Admit Provider: Ibrahima Choudhury Clinical Impression: Acute kidney injury, Altered mental status, Anemia Condition: Stable Coding Level of Care Code ED [employer] Supervisor for Phil Guzman
--- NOTE | 2022-11-30 23:57 | PM.HP ---
Providers/Chief Complaint Admitting Physician: Ibrahima Choudhury MD Primary Care Provider: Darius Hernández MD Chief Complaint: AMS History of Present Illness Bharti Lua is a 72 year old female with a past medical history of hypertension, CAD, COPD, sleep apnea, type 2 diabetes mellitus, major depressive disorder, history of pulmonary nodules, history of histoplasmosis, recently right moral hernia, status post laparoscopic right femoral hernia repair with mesh, extensive lysis of adhesions, discharged home, to the care of her 2 sons, who presents [facility] due to increased confusion, fatigue, malaise, poor appetite, fall. According to patient's sons at bedside, since her surgery she was doing well, she was complaining of fatigue and tiredness that was progressively worsening, poor appetite, 2 days ago she had episode of increased confusion, a fatigue and fall, and she refused to come to the emergency room, her symptoms progressed throughout the day, yesterday evening is when the son saw her last, in the morning they found her on the floor, increasingly confused. She has been reporting bloody stools, she is currently alert to person, not to place, not to time, she does follow commands, denies any abdominal pain, no fevers, chills, no cough, no chest pain, no shortness of breath. Denies any hematemesis, no hemoptysis. Denies any dysuria, denies any hematuria. In the emergency room, she was normotensive, 4 L on room air, temp 98.7, heart rate in the 90s, normal sinus rhythm, she was found to have a hemoglobin of 6.4, with a BUN of 125 and a creatinine of 5.3, evidence of a UTI -During my examination she was alert and awake, she could follow commands but significant confused, sons at bedside tells me that she is quite confused -Cardiovascular S1, S2, regular rate rhythm -Lungs clear to auscultation bilaterally -Abdomen soft, nondistended, nontender, no guarding, no rebound, no rigidity, -Extremities no pitting edema -Neuro, alert to person, not to place, not to time, she can follow commands such as squeezing my fingers, wiggling her toes, but cannot follow complex commands -Sons at bedside tells me that 2 days ago she was able to ambulate, sit up in a chair, feed herself, watch TV, this is completely out of the ordinary -Sons are unsure how long she was on the floor for, potentially will overnight, when she was discovered on the ground and then she was brought to the hospital -I ordered a CT scan of her abdomen pelvis which showed 1. ? Small right pleural effusion with adjacent consolidation or atelectasis. Correlate for pneumonia. Stable marked emphysema. 2. ? Numerous calcified and noncalcified nodular densities in the lungs are grossly unchanged. ? ? IMPRESSION: 1. ? Moderate volume hemoperitoneum in the right retroperitoneum and pelvis with pneumoperitoneum also seen. No definite perforated viscus is seen on CT.? Consider bladder injury given the majority of the blood is in the pelvis.? Recommend clinical correlation. 2. ? Infrarenal abdominal aortic aneurysm is enlarging measuring 4.6 cm (previously 3.2 cm). 3. ? Mild right hydronephrosis without obstructing stone visible. Correlate with urinalysis for infection. ?-I discussed the case in detail with radiology, there is no acute fracture that was seen, so her pneumoperitoneum and her retroperitoneal and hemoperitoneum is fairly unlikely to be from her fall -She had surgery, I discussed with Dr. Healy, he does not feel that this is a complication from her surgery, as she is almost 2 weeks out, who recommended transfer to tertiary level center -I am concerned for retroperitoneal bleed, possibly related to her fall -The other thought is infrarenal abdominal aortic aneurysm, and we did a CT scan without contrast given her creatinine she could have a endoleak possibly related to her fall and trauma -I have discussed with the ER physician, to transfer to tertiary level center -Accepted at [facility], -I also spoke to patient's son, spoke to him over the phone discussed the life-threatening nature of patient's diagnosis, I will be transferring her to [facility] he voiced understanding, all questions answered Problem list -Acute anemia, concerning for hemorrhagic bleed, possible endoleak, will receive 1 unit PRBC -Acute renal failure, combination of dehydration, possible rhabdomyolysis, anemia, retroperitoneal bleed, will receive blood -Hemoperitoneum, right recto peritoneal bleed, with pneumoperitoneum -No definite perforated viscus, no acute fracture, she does have an infrarenal abdominal aortic aneurysm, possible endoleak -Recommend transfer to tertiary level center, for IR evaluation, surgery evaluation -Patient's family voiced understanding, all questions answered, agreed to proceed -Critical care time spent over 1 hour Medications/Allergies Home Medications Medication Instructions Recorded Confirmed Last Taken Type atorvastatin 20 mg tablet 20 mg PO BEDTIME ##0 05/05/21 11/30/22 11/28/22 History magnesium oxide 400 mg PO DAILY 06/16/21 11/30/22 11/29/22 History blood pressure test kit-medium #1 ea 12/13/21 11/30/22 Unknown Rx ([place] Chek Blood Pressure kit) metoprolol succinate 25 mg 37.5 mg PO BID #270 tabs 01/23/22 11/30/22 11/29/22 Rx tablet,extended release 24 hr carboxymethylcellulose sodium 1 % 1 drp ophthalmic (eye) BID #15 mL 10/06/22 11/30/22 11/20/22 Rx eye drops (Artificial Tears (carboxymethylcellulose)) clonazepam 1 mg tablet (Klonopin) 1 mg PO TID PRN Anxiety #90 tabs 10/06/22 11/30/22 11/20/22 Rx ibuprofen 200 mg tablet (Advil) 200 mg PO Q6H PRN Pain 10/06/22 11/30/22 Unknown History multivit with 1 tab PO DAILY 10/06/22 11/30/22 11/29/22 History vhspzjdl-coml-WD-lutein 8 mg iron-400 mcg-300 mcg tablet (Centrum Silver Women) nitroglycerin 0.4 mg sublingual 0.4 mg sublingual Q5M PRN chest 10/06/22 11/30/22 Unknown Rx tablet (Nitrostat) pain #25 tabs trazodone 100 mg tablet 400 mg PO DAILY 90 days #360 tabs 10/06/22 11/30/22 11/29/22 Rx turmeric 400 mg capsule 400 mg PO DAILY 10/06/22 11/30/22 11/29/22 History Diabetic shoes with 3 pairs of #1 ea 10/25/22 11/30/22 Unknown Rx inserts fluticasone fur. 100 mcg-umeclid 1 inh inhalation DAILY COPD 11/06/22 11/30/22 11/29/22 History 62.5 mcg-vilant 25 mcg inhalat.powder (Trelegy Ellipta) diabetic shoe #1 ea 11/07/22 11/30/22 Unknown Rx lancets 30 gauge and blood glucose #200 ea 11/08/22 11/30/22 Unknown Rx strips combo pack omeprazole 40 mg capsule,delayed 40 mg PO DAILY #30 caps 11/08/22 11/30/22 11/29/22 Rx release blood-glucose meter #1 ea 11/15/22 11/30/22 Unknown Rx insulin detemir U-100 100 unit/mL See Rx Instructions .Route 11/17/22 11/30/22 11/29/22 Rx (3 mL) subcutaneous pen (Levemir .COMPLEX #15 mL FlexPen) docusate sodium 100 mg capsule 100 mg PO BID #14 caps 11/20/22 11/30/22 11/28/22 Rx (DOK) hydrocodone 10 mg-acetaminophen 1 tab PO Q6H PRN pain #20 tabs 11/20/22 11/30/22 Unknown Rx 325 mg tablet aripiprazole 5 mg tablet (Abilify) 5 mg PO BEDTIME 11/30/22 11/30/22 11/28/22 History diclofenac sodium 75 mg 75 mg PO BID 11/30/22 11/30/22 11/30/22 History tablet,delayed release duloxetine 60 mg capsule,delayed 60 mg PO DAILY 11/30/22 11/30/22 11/29/22 History release levalbuterol tartrate 45 2 puff inhalation Q4H 11/30/22 11/30/22 Unknown History mcg/actuation aerosol inhaler roflumilast 500 mcg tablet 500 mcg PO DAILY 11/30/22 11/30/22 11/29/22 History Allergies Allergy/AdvReac Type Severity Reaction Status Date / Time No Known Allergies Allergy Verified 11/17/22 11:11 PFSH Acute PFSH: Medical History Bone spur of ankle Chronic post-traumatic stress disorder Diabetes mellitus Encounter for screening for lung cancer Ex-cigarette smoker History of breast cancer History of cervical cancer History of ovarian cancer History of uterine cancer Hyperlipidemia Obstructive sleep apnea Persistent depressive disorder 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 Thyroid nodule Surgical History H/O ventral hernia repair History of bilateral mastectomy History of esophagogastroduodenoscopy (EGD) 15-16 yrs ago History of hysterectomy Hx of colonoscopy 17 yrs ago Hx of total knee replacement left knee Family History Mother Cancer female cancer Other Bleeding disorder CAD (coronary artery disease) Hypertension Lung disease Denies family history of Diabetes Clotting disorder Dementia Hyperlipidemia Psychiatric illness Chronic kidney disease (CKD) Anesthesia complication Stroke Social History Smoking and tobacco status: former smoker Quit status (tobacco): has quit using tobacco Year quit tobacco: 2006 [id number] Second hand smoke exposure: No Smoking risk assessment/counseling performed?: Yes Alcohol intake: never Substance/Drug Use: never Caregiver/support person: Yes Lives independently: Yes Housing: House Marital status: / Current occupational status: disabled Pets and animals: Yes Current gender identity: Female Vitals/I&O/Wt Last Vital Signs Temp 98.7 F 11/30/22 23:54 Pulse 100 11/30/22 23:54 Resp 17 11/30/22 23:54 BP 134/65 11/30/22 23:54 Pulse Ox 96 11/30/22 23:54 O2 Del Method Nasal Cannula 11/30/22 18:00 O2 Flow Rate 4 11/30/22 18:00 11/30/22 11/30/22 12/01/22 14:59 22:59 06:59 Intake Total 1000 / 1000 1000 / 2000 Output Total 1550 / 1550 Balance -550 / -550 1000 / 450 Weight last 48 hrs Weight 67.585 kg Physical Exam Const: COMMON NORMALS: no acute distress HENMT: COMMON NORMALS: normocephalic HEAD & SCALP: normocephalic Resp: COMMON NORMALS: normal respiratory effort, No retractions, No use of accessory muscles and clear to auscultation bilaterally AUSCULTATION: clear to auscultation bilaterally Cardio: COMMON NORMALS: regular rate, regular rhythm, S1 normal heart sound present and S2 normal heart sound present RATE: regular rate RHYTHM: regular rhythm HEART SOUNDS: S1 normal heart sound present and S2 normal heart sound present GI: COMMON NORMALS: Normal to inspection, nondistended, normoactive bowel sounds present, Soft to palpation and non-tender Extremity: COMMON NORMALS: no pedal edema Urinary Catheter Management: Nova: Cath Placed During This Visit: yes Urinary Catheter Date of Insertion: 11/30/22 Urinary Catheter Time of Insertion: 21:00 Data 11/30/22 18:51 11/30/22 18:51 Micro: Microbiology 11/30/22 20:50 Blood Culture - Preliminary Blood SPECIMEN COLLECTED 11/30/22 20:50 Blood Culture - Preliminary Blood SPECIMEN COLLECTED A&P Assessment and plan (1) Acute kidney injury: (2) Altered mental status: (3) Anemia: (4) Intra abdominal hemorrhage: (5) Endoleak: (6) Pneumoperitoneum: (7) Femoral hernia of right side: (8) Retroperitoneal bleed: Attestations Medical Necessity Statement*: Transfer to tertiary level center for concerns for hemoperitoneum, retroperitoneal bleed, pneumoperitoneum, intra-abdominal hemorrhage, etiology unclear, possible endoleak, needing general surgery, IR Coding Level of Care Code Critical Care >/= 30 minutes Critical care time (in minutes): 60 The high probability of a clinically significant, sudden or life threatening deterioration, as referenced in this documentation, required my full and direct attention, intervention and personal management. The critical care time shown is in addition to time spent performing any reported separately billable procedures and includes the following: [x] Data and vital sign review and interpretation [x] Patient assessment, examination and intervention [x] Medication orders and management [x] Patient/Family updates as able [x] Care Coordination and Documentation. Diagnoses Acute kidney injury N17.9 Altered mental status R41.82 Anemia D64.9 Intra abdominal hemorrhage R58 Endoleak Pneumoperitoneum K66.8 Femoral hernia of right side K41.90 Retroperitoneal bleed R58
[2022-12-01] VITALS: BP 134/65; PULSE 101; RESP 18; O2SAT 97
--- NOTE | 2022-12-01 00:12 | ECG_ITS ---
[facility] Test Date: 2022-12-01 Pat Name: Bharti Lua Department: Room: 108 Gender: Female Fountain Server: : 1950 Requested By: Louis Reynolds Order Number: [id number] Markie MD: Romana Navarro M.D. Measurements Intervals [place] Rate: 98 P: 84 VT: 141 QRS: 49 QRSD: 96 T: 133 QT: 352 QTc: 450 Interpretive Statements SINUS RHYTHM NONSPECIFIC ST & T-WAVE ABNORMALITY Compared to ECG 11/30/2022 21:21:10 Sinus tachycardia no longer present T-wave abnormality still present Electronically Signed On 12-01-2022 22:19:48 CDT by Romana Navarro M.D. [id number]
[2022-12-01 00:54] VITALS: BP 113/62; PULSE 99; RESP 18; TEMP 37.2; O2SAT 98
[2022-12-01 01:30] VITALS: BP 120/53; PULSE 97; RESP 19; O2SAT 99
[2022-12-01 01:47] VITALS: BP 136/55; PULSE 94; RESP 16; TEMP 37.1; O2SAT 94
--- NOTE | 2022-12-01 01:53 | PC.NURSE ---
2nd unit of prbc started and will be monitored in route with [facility] atlassian administrator.
[2022-12-01 01:55] VITALS: BP 134/72; PULSE 78; RESP 16; O2SAT 94
[2022-12-01] MEDS: sodium chloride 0.9% 100 mL Bag 50 ML IV (01:57)
== END 2022-12-01 01:57 | disposition short-term general hospital (02) ==
LOC: ER 22:01 → CSU 23:14
PROVIDERS: Emergency Provider Emergency Medicine; PCP Family Medicine
DX: R41.82 Altered mental status, unspecified (principal); N17.9 Acute kidney failure, unspecified; K66.1 Hemoperitoneum; D64.9 Anemia, unspecified; E86.0 Dehydration
CPT/HCPCS: 36415; 36430; 36600; 51702; 70450; 71045; 71250; 74176; 80053; 81001; 82140; 82550; 82803; 83605; 84484; 85007; 85025; 85610; 86850; 86900; 86920; 87040; 87086; 93005; 96360; 96361; 99285; J7030; P9016

== ENCOUNTER 2025-07-28 11:42 | Inpatient (IN) | payer MEDICARE, MEDICAID, SELFPAY ==
[2025-07-28] VITALS (57 sets, daily range): BP systolic 98–172; BP diastolic 43–110; PULSE 55–86; RESP 13–26; TEMP 36.6–36.7; O2SAT 94–100; BMI 32.1
--- NOTE | 2025-07-28 11:56 | XRR_ITS ---
PROCEDURE INFORMATION: Exam: XR Chest Exam date and time: 07/28/2025 11:56 AM Age: 74 years old Clinical indication: Other: Weakness TECHNIQUE: Imaging protocol: Radiologic exam of the chest. Views: 1 view. COMPARISON: CT chest abdpel [id number] 11/30/2022 9:59 PM FINDINGS: Lungs: Scattered calcified granulomas throughout bilateral lungs. Mild bibasilar opacities. Pleural spaces: Possible trace right pleural effusion. Heart/Mediastinum: Unremarkable. No cardiomegaly. Diaphragm: Mild asymmetric elevation of the right hemidiaphragm. Bones/joints: Unremarkable. XR/XR chest 1V portable [id number] IMPRESSION: Bibasilar opacities may represent atelectasis versus infiltrate. Possible trace right pleural effusion.
--- NOTE | 2025-07-28 11:56 | CTR_ITS ---
PROCEDURE INFORMATION: Exam: CT Head Without Contrast Exam date and time: 07/28/2025 12:04 PM Age: 74 years old Clinical indication: Altered mental status/memory loss; Prior surgery; Surgery date: 6+ months; Surgery type: B/l mastectomy, hyst, egd, hernia; PT arrives via EMS from home. Some time yesterday son found patient altered. Son came over today and states that PT was trying to stick shalini pins in her mother. PT is able to take care of herself at home. 0.4 narcan given d/t pupils being pinpoint upon arrival, no change after narcan administration. PT able to tell me her name, , year. ; Additional info: Encephalopathy, altered mental status, HX of breast cancer TECHNIQUE: Imaging protocol: Computed tomography of the head without contrast. Radiation optimization: All CT scans at this facility use at least one of these dose optimization techniques: automated exposure control; mA and/or kV adjustment per patient size (includes targeted exams where dose is matched to clinical indication); or iterative reconstruction. COMPARISON: CT head wo con* [id number] 11/30/2022 6:27 PM RADIATION DOSE METRICS: Total DLP (mGy-cm): 1093.58 FINDINGS: Brain: Mild generalized cortical volume loss. No hemorrhage. Periventricular and subcortical white matter hypodensities likely represent chronic small vessel ischemic changes. No mass effect. Vascular calcifications along the carotid siphons. Empty sella. Cerebral ventricles: No ventriculomegaly. Paranasal sinuses: Visualized sinuses are unremarkable. No fluid levels. Mastoid air cells: Visualized mastoid air cells are well aerated. Bones: Unremarkable. No acute fracture. Soft tissues: Unremarkable. CT/CT head wo con* [id number] IMPRESSION: No acute intracranial abnormality.
--- NOTE | 2025-07-28 11:57 | W.ED.AMS ---
HPI - Altered Mental Status General: Chief Complaint: Altered Mental Status Stated Complaint: AMS Time Seen by Provider: 07/28/25 11:53 History of Present Illness: 74-year-old female with a history of breast, uterine, ovarian and cervical cancer, COPD, hypertension, hyperlipidemia, diabetes, depression, obstructive sleep apnea and PTSD who presents to the emergency room by ambulance from home with altered mental status. Family reports yesterday they had gone over to the house and she had defecated on herself and seemed confused. Today he went back over and she was still confused so they called an ambulance. When I examined her she says she does not know why she is here really and does seem fairly confused but does follow commands and has no focal motor deficits. No reports of fever. No vomiting. No abdominal pain. No chest pain. Related Data Home Medications ?Medication ?Instructions ?Recorded ?Confirmed atorvastatin 20 mg tablet 20 mg PO BEDTIME ##0 05/05/21 07/28/25 magnesium oxide 400 mg PO DAILY 06/16/21 07/28/25 ibuprofen 200 mg tablet (Advil) 200 mg PO Q6H PRN Pain 10/06/22 07/28/25 Held on 11/20/22. Instructions: Resume on 11/23/22. [id number]-jbls 8 mg-folic 400 1 tab PO DAILY 10/06/22 07/28/25 mcg-K 50 mcg-lutein 300 mcg tablet (Centrum Silver Women) turmeric 400 mg capsule 400 mg PO DAILY 10/06/22 07/28/25 fluticasone fur. 100 mcg-umeclid 1 inh inhalation DAILY COPD 11/06/22 07/28/25 62.5 mcg-vilant 25 mcg inhalat.powder (Trelegy Ellipta) aripiprazole 5 mg tablet (Abilify) 5 mg PO BEDTIME 11/30/22 07/28/25 diclofenac sodium 75 mg 75 mg PO BID 11/30/22 07/28/25 tablet,delayed release levalbuterol tartrate 45 2 puff inhalation Q4H 11/30/22 07/28/25 mcg/actuation aerosol inhaler roflumilast 500 mcg tablet 500 mcg PO DAILY 11/30/22 07/28/25 albuterol sulfate 90 mcg/actuation 2 puff inhalation Q6H PRN 07/28/25 07/28/25 aerosol inhaler Shortness Of Breath docusate sodium 100 mg capsule 100 mg PO BID 07/28/25 07/28/25 (Colace) fluticasone propionate 110 1 puff inhalation DAILY 07/28/25 07/28/25 mcg/actuation HFA aerosol inhaler fluticasone propionate 50 2 spray intranasal DAILY 07/28/25 07/28/25 mcg/actuation nasal spray,suspension hydrocodone 5 mg-acetaminophen 325 1 tab PO QID PRN Pain 07/28/25 07/28/25 mg tablet insulin glargine 100 unit/mL (3 35 unit SUBCUT BEDTIME 07/28/25 07/28/25 mL) subcutaneous pen (Lantus Solostar U-100 Insulin) lactulose 10 gram/15 mL oral 15 ml PO TID PRN Constipation 07/28/25 07/28/25 solution (Enulose) trazodone 100 mg tablet 400 mg PO BEDTIME 07/28/25 07/28/25 Previous Rx's ?Medication ?Instructions ?Recorded blood pressure test kit-medium #1 ea 12/13/21 (The Gl[employer] Blood Pressure kit) metoprolol succinate 25 mg 37.5 mg (1.5 x 25 mg) PO BID #270 01/23/22 tablet,extended release 24 hr tabs carboxymethylcellulose sodium 1 % 1 drp ophthalmic (eye) BID #15 mL 10/06/22 eye drops (Artificial Tears (carboxymethylcellulose)) clonazepam 1 mg tablet (Klonopin) 1 mg PO TID PRN Anxiety #90 tabs 10/06/22 nitroglycerin 0.4 mg sublingual 0.4 mg sublingual Q5M PRN chest 10/06/22 tablet (Nitrostat) pain #25 tabs Diabetic shoes with 3 pairs of #1 ea 10/25/22 inserts diabetic shoe #1 ea 11/07/22 omeprazole 40 mg capsule,delayed 40 mg PO DAILY #30 caps 12/07/22 release duloxetine 60 mg capsule,delayed 60 mg PO DAILY #90 caps 01/05/23 release blood-glucose meter #1 ea 02/16/23 lancets 30 gauge and blood glucose #200 ea 02/16/23 strips combo pack Allergies Allergy/AdvReac Type Severity Reaction Status Date / Time No Known Allergies Allergy Verified 07/28/25 11:57 Review of Systems Narrative: Constitutional symptoms: Negative except as documented in HPI. Skin symptoms: Negative except as documented in HPI. Eye symptoms: Negative except as documented in HPI. ENMT symptoms: Negative except as documented in HPI. Respiratory symptoms: Negative except as documented in HPI. Cardiovascular symptoms: Negative except as documented in HPI. Gastrointestinal symptoms: Negative except as documented in HPI. Genitourinary symptoms: Negative except as documented in HPI. Musculoskeletal symptoms: Negative except as documented in HPI. Neurologic symptoms: Negative except as documented in HPI. Psychiatric symptoms: Negative except as documented in HPI. Endocrine symptoms: Negative except as documented in HPI. PFSH ED PFSH: Medical History (Updated 07/28/25 @ 13:14 by Grace Desai MD) Thyroid nodule History of breast cancer History of uterine cancer History of ovarian cancer History of cervical cancer Ex-cigarette smoker Bone spur of ankle Hyperlipidemia Diabetes mellitus Encounter for screening for lung cancer Persistent depressive disorder Obstructive sleep apnea Chronic post-traumatic stress disorder 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 Surgical History H/O ventral hernia repair History of hysterectomy Hx of colonoscopy 17 yrs ago History of esophagogastroduodenoscopy (EGD) 15-16 yrs ago Hx of total knee replacement left knee History of bilateral mastectomy Family History Mother Cancer female cancer Other Bleeding disorder CAD (coronary artery disease) Hypertension Lung disease Denies family history of Diabetes Clotting disorder Dementia Hyperlipidemia Psychiatric illness Chronic kidney disease (CKD) Anesthesia complication Stroke Social History Smoking and tobacco/nicotine status: former use of tobacco/nicotine Quit status (tobacco/nicotine): has quit using Year quit tobacco: 2006 [id number] Second hand smoke exposure: No Alcohol intake: never Substance/Drug Use: never Caregiver/support person: Yes Lives independently: Yes Housing: House Marital status: / Current occupational status: disabled Pets and animals: Yes Do you think of yourself as: Straight/Heterosexual Current gender identity: Female Physical Exam Narrative: General: Alert, no acute distress. Skin: Warm, dry. Head: Normocephalic, atraumatic. Neck: Supple, trachea midline. Eye: Extraocular movements are intact. Ears, nose, mouth and throat: Tacky oral mucosa Cardiovascular: Regular, Normal peripheral perfusion. Respiratory: Lungs are clear to auscultation, respirations are non-labored, breath sounds are equal, Symmetrical chest wall expansion. Gastrointestinal: Soft, Nontender, Non distended Musculoskeletal: Normal ROM, no deformity. Neurological: Alert and oriented to family, No focal neurological deficit observed. Psychiatric: Cooperative, seems somewhat confused Course Vital Signs: Vital signs: Vital Signs Temperature 98.0 F 07/28/25 11:43 Pulse Rate 83 07/28/25 11:43 Respiratory Rate 18 07/28/25 11:43 Blood Pressure 139/66 07/28/25 11:43 Pulse Oximetry 99 07/28/25 11:43 MDM - Altered Mental Status Medical Decision Making Medical decision making Patient's reason for coming to the emergency room: Altered mental status Social determinants: Patient lives at home. There is a son present. I reviewed the patient's medical record. 74-year-old female with a history of breast, uterine, ovarian and cervical cancer, COPD, hypertension, hyperlipidemia, diabetes, depression, obstructive sleep apnea and PTSD I reviewed the patient's current home meds Patient is on Abilify which rarely causes hyponatremia. I do not see any diuretics. Alternate historians: None Differential diagnosis: including but not limited to and based on the above HPI, review of systems and physical exam: Orders placed to evaluate differential diagnosis based on the above differential, HPI and physical exam EKG: Time 1235. Rate 71. Normal sinus rhythm, No ST-T changes, no ectopy, normal NM & QRS intervals, This was reviewed and interpreted by myself the ER physician at 1240. Lab Review: Laboratory results were reviewed and interpreted by myself the emergency room physician. No leukocytosis. Stable mild anemia with a hemoglobin of 9.3. No renal failure. Sodium is low at 118. Urinalysis negative for infection. CT head: No acute intracranial process. No intracranial hemorrhage, no evidence of infarct. No evidence of acute fracture. This was reviewed and interpreted by myself the emergency room physician. I also reviewed the radiology report. Chest x-ray bibasilar opacities may represent atelectasis versus infiltrate. Patient has no reports of cough or fever. No leukocytosis. This likely is atelectasis. This was reviewed and interpreted by myself the emergency room physician. I also reviewed the radiology report. Assessment of risk: Level of risk: Moderate risk patient. Patient has multiple comorbidities. Hospitalization considerations: Patient is being admitted Reexamination: Patient remained stable. No increased work of breathing. Stable mild confusion. No focal motor deficits. Consultation: I spoke with Dr. Scruggs who is on-call for the hospitalist service who agrees to admission to the ICU. Assessment and plan: Hyponatremia Encephalopathy ?1 L normal saline bolus in the emergency room -I discussed the patient with the hospitalist on-call who is admitting the patient. - Discussed findings and plan with patient. Answered any questions. - All laboratory values were reviewed and interpreted personally by myself, the ER physician - All imaging was reviewed and interpreted personally by myself, the ER physician. - Evaluation and treatment of this problem were appropriate in the emergency setting Lab Data 07/28/25 12:22 07/28/25 12:22 Radiology Impressions Chest X-Ray 07/28/25 11:56 IMPRESSION: Bibasilar opacities may represent atelectasis versus infiltrate. Possible trace right pleural effusion. Head CT 07/28/25 11:56 IMPRESSION: No acute intracranial abnormality. Laboratory Results WBC 7.92 10^3/uL (3.29-11.43) 07/28/25 12:22 RBC 2.94 10^6/uL (3.85-5.65) L 07/28/25 12:22 Hgb 9.30 g/dL (11.27-16.99) L 07/28/25 12:22 Hct 26.2 % (36-47) L 07/28/25 12:22 MCV 89.1 fl (85-98) 07/28/25 12:22 MCH 31.6 pg (27-33) 07/28/25 12:22 MCHC 35.5 g/dL (30-55) 07/28/25 12:22 RDW 14.4 % (12.1-15.1) 07/28/25 12:22 Plt Count 341 10^3/cmm (157-399) 07/28/25 12:22 MPV 10.1 fL (7.4-10.4) 07/28/25 12:22 Neut % (Auto) 68.4 % 07/28/25 12:22 Lymph % (Auto) 15.9 % 07/28/25 12:22 Thayer % (Auto) 15.2 % 07/28/25 12:22 Eos % (Auto) 0.0 % 07/28/25 12:22 Baso % (Auto) 0.4 % 07/28/25 12:22 Neut # (Auto) 5.42 10^3/uL (1.8-7.7) 07/28/25 12:22 Lymph # (Auto) 1.3 10^3/uL (0.8-4.8) 07/28/25 12:22 Thayer # (Auto) 1.2 10^3/uL (0.2-0.9) H 07/28/25 12:22 Eos # (Auto) 0.0 10^3/uL (0.0-0.8) 07/28/25 12:22 Baso # (Auto) 0.0 10^3/uL (0.0-0.1) 07/28/25 12:22 Nucleated RBC % (auto) 1.1 % 07/28/25 12:22 Nucleated RBCs # 0.1 /100WBC 07/28/25 12:22 Sodium 118 mmol/L (136-145) L* 07/28/25 12:22 Potassium 3.5 mmol/L (3.5-5.1) 07/28/25 12:22 Chloride 78 mmol/L (98-107) L 07/28/25 12:22 Carbon Dioxide 29 mmol/L (22-29) 07/28/25 12:22 Anion Gap 14.5 (5-19) 07/28/25 12:22 BUN 14 mg/dL (8-23) 07/28/25 12:22 Creatinine 0.7 mg/dL (0.5-0.9) 07/28/25 12:22 GFR Calculation Not Reportable 07/28/25 12:22 Glucose 151 mg/dL (65-115) H 07/28/25 12:22 Calculated Osmolality 249 mOsm/kg (285-295) L 07/28/25 12:22 Lactic Acid 0.9 mmol/L (0.5-2.2) 07/28/25 12:22 Calcium 9.3 mg/dL (8.5-10.5) 07/28/25 12:22 Total Bilirubin 0.8 mg/dL (0.15-1.2) 07/28/25 12:22 AST 43 U/L (0-32) H 07/28/25 12:22 ALT 17 U/L (0-33) 07/28/25 12:22 Alkaline Phosphatase 62 U/L (35-105) 07/28/25 12:22 Troponin T Baseline 18 ng/L (0-10) H 07/28/25 12:22 Total Protein 7.0 g/dL (6.6-8.7) 07/28/25 12:22 Albumin 4.8 g/dL (3.5-5.2) 07/28/25 12:22 Globulin 2.2 g/dL (1.3-4.6) 07/28/25 12:22 Urine Color Yellow (Yellow) 07/28/25 12:16 Urine Appearance Clear (CLEAR) 07/28/25 12:16 Urine pH 5.5 (5-7) 07/28/25 12:16 Ur Specific [place] 1.017 (1.005-1.030) 07/28/25 12:16 Urine Protein Trace (Negative) A 07/28/25 12:16 Urine Glucose (UA) Negative (Normal) 07/28/25 12:16 Urine Ketones 1+ (Negative) H 07/28/25 12:16 Urine Blood Negative (Negative) 07/28/25 12:16 Urine Nitrate Negative (Negative) 07/28/25 12:16 Urine Bilirubin Negative (Negative) 07/28/25 12:16 Urine Urobilinogen 1.0 mg/dL (Negative) 07/28/25 12:16 Ur Leukocyte Esterase Trace (Negative) A 07/28/25 12:16 Urine RBC 0-2 /hpf (0-2) 07/28/25 12:16 Urine WBC 0-5 /hpf (0-5) 07/28/25 12:16 Ur Squamous Epith Cells 0-5 /hpf (0-5) 07/28/25 12:16 Amorphous Sediment Not Reportable 07/28/25 12:16 Urine Bacteria None seen /hpf (NONE) 07/28/25 12:16 Hyaline Casts 0-4 /lpf H 07/28/25 12:16 All radiology interpretation(s) finalized by discharge Discharge Plan Discharge Patient Disposition: Admitted As Inpatient Clinical Impression: Hyponatremia, Encephalopathy Condition: Stable Coding Level of Care Code ED Manager Clinical Informatics for Phil Guzman
[2025-07-28 12:32] LABS: Hematocrit 26.2 % (36-47); Hemoglobin 9.30 g/dL (11.27-16.99); Mean Corpuscular HGB Conc 35.5 g/dL (30-55); Mean Corpuscular Hemoglobin 31.6 pg (27-33); Mean Corpuscular Volume 89.1 fl (85-98); Nucleated Red Blood Cells % 1.1 %; Platelet Count 341 10^3/cmm (157-399); Red Blood Count 2.94 10^6/uL (3.85-5.65); White Blood Count 7.92 10^3/uL (3.29-11.43)
--- NOTE | 2025-07-28 12:35 | ECG_ITS ---
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 Measurements Intervals [place] Rate: 71 P: 72 MT: 188 QRS: 55 QRSD: 105 T: 74 QT: 409 QTc: 447 Interpretive Statements SINUS RHYTHM MODERATE ST DEPRESSION [0.05+ mV ST DEPRESSION] Compared to ECG 12/01/2022 00:29:24 ST (T wave) deviation now present T-wave abnormality no longer present Electronically Signed On 07-28-2025 21:22:44 AGRICULTURE EXTENSION SPECIALIST by Romana Navarro M.D. [email or web address]
[2025-07-28 12:43] LABS: Glucose Urine UA Negative (Normal); Nitrate Urine Negative (Negative); Specific Gravity, Urine 1.017 (1.005-1.030)
[2025-07-28 12:48] LABS: Universal Test for UA Present (0)
[2025-07-28 12:49] LABS: Alanine Aminotransferase 17 U/L (0-33); Albumin Level 4.8 g/dL (3.5-5.2); Alkaline Phosphatase 62 U/L (35-105); Anion Gap 14.5 (5-19); Aspartate Amino Transferase 43 U/L (0-32); Blood Urea Nitrogen 14 mg/dL (8-23); Calcium 9.3 mg/dL (8.5-10.5); Carbon Dioxide 29 mmol/L (22-29); Chloride 78 mmol/L (98-107); Globulin 2.2 g/dL (1.3-4.6); Glucose 151 mg/dL (65-115); Osmolality Calculated 249 mOsm/kg (285-295); Potassium 3.5 mmol/L (3.5-5.1); Total Protein 7.0 g/dL (6.6-8.7)
[2025-07-28 12:50] LABS: Lactic Sepsis W/Reflex 0.9 mmol/L (0.5-2.2)
[2025-07-28 12:52] LABS: Troponin(5th) Baseline 18 ng/L (0-10)
[2025-07-28 12:55] LABS: Sodium 118 mmol/L (136-145)
--- NOTE | 2025-07-28 12:56 | ECG_ITS ---
[facility] Test Date: 2025-07-28 Pat Name: Bharti Lua Department: Room: [facility] Gender: Female Can Feeder: : 1950 Requested By: Grace Moore Order Number: [id number] Markie MD: Romana Navarro M.D. Measurements Intervals [place] Rate: 63 P: 59 HI: 182 QRS: 47 QRSD: 105 T: 71 QT: 422 QTc: 434 Interpretive Statements SINUS RHYTHM WITH SINUS ARRHYTHMIA MODERATE ST DEPRESSION [0.05+ mV ST DEPRESSION] Compared to ECG 07/28/2025 12:35:14 No significant changes Electronically Signed On 07-28-2025 21:40:21 FORKLIFT TRUCK OPERATOR by Romana Navarro M.D. [email or web address]
--- NOTE | 2025-07-28 13:04 | PC.PHAR ---
Pt seemed to answer yes to every medication so I called her pharmacies [facility] and [facility], to verify current meds.
[2025-07-28 14:37] LABS: Respiratory Syncytial Virus Ce NEGATIVE (Negative); SARS-CoV-2 PCR NEGATIVE (Negative)
[2025-07-28 15:52] LABS: Anion Gap 13.2 (5-19); Blood Urea Nitrogen 14 mg/dL (8-23); Calcium 8.4 mg/dL (8.5-10.5); Carbon Dioxide 27 mmol/L (22-29); Chloride 82 mmol/L (98-107); Free T4 Free Thyroxine 1.45 ng/dL (0.82-1.77); Glucose 120 mg/dL (65-115); Osmolality Calculated 250 mOsm/kg (285-295); Potassium 3.2 mmol/L (3.5-5.1); Thyroid Stimulating Hormone 1.83 uIU/mL (0.27-4.20)
[2025-07-28 15:57] LABS: Sodium 119 mmol/L (136-145)
--- NOTE | 2025-07-28 16:50 | PC.NURSE ---
Arrived from ED, AO to self and being in hospital transferred self to bed
[2025-07-28] MEDS: metoprolol succinate ER (24 HR) 25 mg Tablet 37.5 MG PO (17:38)
--- NOTE | 2025-07-28 17:56 | ECG_ITS ---
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 Measurements Intervals [place] Rate: 65 P: 53 IA: 191 QRS: 24 QRSD: 103 T: 42 QT: 403 QTc: 420 Interpretive Statements SINUS RHYTHM NONSPECIFIC ST & T-WAVE ABNORMALITY Compared to ECG 07/28/2025 16:18:33 T-wave abnormality now present Sinus arrhythmia no longer present ST (T wave) deviation no longer present Electronically Signed On 07-28-2025 21:40:17 ORTHOTICS PROSTHETICS ASSISTANT by Romana Navarro M.D. [id number] [id number]
--- NOTE | 2025-07-28 17:58 | PC.NURSE ---
Dr. Florian ordered 1500 ml fluid restriction, call hcp with next Na level
--- NOTE | 2025-07-28 18:00 | PM.HP ---
Providers/Chief Complaint Admitting Physician: Nicole Butler MD Primary Care Provider: Stew Ruiz DO Chief Complaint: AMS History of Present Illness As per the patient and retrospective notes: Bharti Lua is a 74 year old female with a history of breast, uterine, ovarian and cervical cancer, COPD, hypertension, hyperlipidemia, diabetes, depression, obstructive sleep apnea and PTSD who presents to the emergency room by ambulance from home with altered mental status. Family reports yesterday they had gone over to the house and she had defecated on herself and seemed confused. Today he went back over and she was still confused so they called an ambulance. Upon my interaction with the patient, she seems a pleasant lady and is alert oriented to place person and partially to time. The patient did not report any dizziness or recent fall. However she said that she lives with her son and might have a fall in the past when her son was at work and not around. I ask about her mobility and she reports that she walks around with a cane. And when her son comes after work, he helps her with the food and daily life activities. Otherwise she stays at home and no other support when she is alone. She also reported mild nausea and vomiting along with diarrhea in the last 3 to 4 days but no flulike symptoms. There was no abdominal pain, fevers, chest pain, chest pressure, palpitation, presyncope, orthopnea or PND or any recent lower leg swellings. Rest of the review of system unremarkable Review of Systems General: Reports: 10 or more systems reviewed and unremarkable except in HPI and below Medications/Allergies Home Medications ?Medication ?Instructions ?Recorded ?Confirmed ?Last Taken ?Type atorvastatin 20 mg tablet 20 mg PO BEDTIME ##0 05/05/21 07/28/25 07/27/25 History magnesium oxide 400 mg PO DAILY 06/16/21 07/28/25 07/28/25 History blood pressure test kit-medium #1 ea 12/13/21 07/28/25 Unknown Rx ([facility] Blood Pressure kit) metoprolol succinate 25 mg 37.5 mg (1.5 x 25 mg) PO BID #270 01/23/22 07/28/25 07/28/25 Rx tablet,extended release 24 hr tabs carboxymethylcellulose sodium 1 % 1 drp ophthalmic (eye) BID #15 mL 10/06/22 07/28/25 07/27/25 Rx eye drops (Artificial Tears (carboxymethylcellulose)) clonazepam 1 mg tablet (Klonopin) 1 mg PO TID PRN Anxiety #90 tabs 10/06/22 07/28/25 11/20/22 Rx ibuprofen 200 mg tablet (Advil) 200 mg PO Q6H PRN Pain 10/06/22 07/28/25 Unknown History Held on 11/20/22. Instructions: Resume on 11/23/22. [id number] 8 mg-folic 400 1 tab PO DAILY 10/06/22 07/28/25 07/28/25 History mcg-K 50 mcg-lutein 300 mcg tablet (Centrum Silver Women) nitroglycerin 0.4 mg sublingual 0.4 mg sublingual Q5M PRN chest 10/06/22 07/28/25 Unknown Rx tablet (Nitrostat) pain #25 tabs turmeric 400 mg capsule 400 mg PO DAILY 10/06/22 07/28/25 07/28/25 History Diabetic shoes with 3 pairs of #1 ea 10/25/22 07/28/25 Unknown Rx inserts fluticasone fur. 100 mcg-umeclid 1 inh inhalation DAILY COPD 11/06/22 07/28/25 07/27/25 History 62.5 mcg-vilant 25 mcg inhalat.powder (Trelegy Ellipta) diabetic shoe #1 ea 11/07/22 07/28/25 Unknown Rx aripiprazole 5 mg tablet (Abilify) 5 mg PO BEDTIME 11/30/22 07/28/25 07/27/25 History diclofenac sodium 75 mg 75 mg PO BID 11/30/22 07/28/25 07/28/25 History tablet,delayed release levalbuterol tartrate 45 2 puff inhalation Q4H 11/30/22 07/28/25 07/28/25 History mcg/actuation aerosol inhaler roflumilast 500 mcg tablet 500 mcg PO DAILY 11/30/22 07/28/25 07/28/25 History omeprazole 40 mg capsule,delayed 40 mg PO DAILY #30 caps 12/07/22 07/28/25 07/28/25 Rx release duloxetine 60 mg capsule,delayed 60 mg PO DAILY #90 caps 01/05/23 07/28/25 07/28/25 Rx release blood-glucose meter #1 ea 02/16/23 07/28/25 Unknown Rx lancets 30 gauge and blood glucose #200 ea 02/16/23 07/28/25 Unknown Rx strips combo pack albuterol sulfate 90 mcg/actuation 2 puff inhalation Q6H PRN 07/28/25 07/28/25 Unknown History aerosol inhaler Shortness Of Breath docusate sodium 100 mg capsule 100 mg PO BID 07/28/25 07/28/25 07/28/25 History (Colace) fluticasone propionate 110 1 puff inhalation DAILY 07/28/25 07/28/25 07/28/25 History mcg/actuation HFA aerosol inhaler fluticasone propionate 50 2 spray intranasal DAILY 07/28/25 07/28/25 07/28/25 History mcg/actuation nasal spray,suspension hydrocodone 5 mg-acetaminophen 325 1 tab PO QID PRN Pain 07/28/25 07/28/25 Unknown History mg tablet insulin glargine 100 unit/mL (3 35 unit SUBCUT BEDTIME 07/28/25 07/28/25 07/27/25 History mL) subcutaneous pen (Lantus Solostar U-100 Insulin) lactulose 10 gram/15 mL oral 15 ml PO TID PRN Constipation 07/28/25 07/28/25 Unknown History solution (Enulose) trazodone 100 mg tablet 400 mg PO BEDTIME 07/28/25 07/28/25 07/27/25 History Allergies Allergy/AdvReac Type Severity Reaction Status Date / Time No Known Allergies Allergy Verified 07/28/25 11:57 PFSH Acute PFSH: Medical History (Updated 07/28/25 @ 18:14 by Nicole Butler MD) Thyroid nodule History of breast cancer History of uterine cancer History of ovarian cancer History of cervical cancer Ex-cigarette smoker Bone spur of ankle Hyperlipidemia Diabetes mellitus Encounter for screening for lung cancer Persistent depressive disorder Obstructive sleep apnea Chronic post-traumatic stress disorder 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 Surgical History H/O ventral hernia repair History of hysterectomy Hx of colonoscopy 17 yrs ago History of esophagogastroduodenoscopy (EGD) 15-16 yrs ago Hx of total knee replacement left knee History of bilateral mastectomy Family History Mother Cancer female cancer Other Bleeding disorder CAD (coronary artery disease) Hypertension Lung disease Denies family history of Diabetes Clotting disorder Dementia Hyperlipidemia Psychiatric illness Chronic kidney disease (CKD) Anesthesia complication Stroke Social History Smoking and tobacco/nicotine status: former use of tobacco/nicotine Quit status (tobacco/nicotine): has quit using Year quit tobacco: 2006 [id number] Second hand smoke exposure: No Alcohol intake: never Substance/Drug Use: never Caregiver/support person: Yes Lives independently: Yes Housing: House Marital status: / Current occupational status: disabled Pets and animals: Yes Do you think of yourself as: Straight/Heterosexual Current gender identity: Female Vitals/I&O/Wt Last Vital Signs Temp 98.0 F 07/28/25 11:43 Pulse 84 07/28/25 17:55 Resp 17 07/28/25 17:55 BP 157/83 07/28/25 17:55 Pulse Ox 100 07/28/25 17:55 O2 Del Method Nasal Cannula 07/28/25 16:51 O2 Flow Rate 4 07/28/25 15:08 07/28/25 07/28/25 07/28/25 06:59 14:59 22:59 Intake Total 0 / 0 1000 / 1000 Balance 0 / 0 1000 / 1000 Weight last 48 hrs Weight 77.111 kg Physical Exam Narrative: General: Alert and oriented, lying comfortably without any distress, with Nova's catheter HEENT: Normocephalic, atraumatic, grossly unremarkable exam Cardio: normal rate rhythm, normal S1-S2 without any murmurs, rubs, or gallops and JVD normal Respiratory: normal vascular breathing on auscultation without any wheezes, stridor, rhonchi GI: Abdomen soft, nontender, nondistended, normoactive bowel sounds present all 4 quadrants, Neuro: intact cranial nerves motor and sensory and cerebellar/coordination function without any focal neurological deficit Behavior: Appropriate and cooperative Extremities: Adequate palpable pulses, no edema or cyanosis observed Skin: grossly unremarkable exam Urinary Catheter Management: Nova: Cath Placed During This Visit: yes Urinary Catheter Date of Insertion: 07/28/25 Urinary Catheter Time of Insertion: 15:09 Data 07/28/25 12:22 07/28/25 15:12 Micro: Microbiology 07/28/25 12:21 Blood Culture - Preliminary Blood SPECIMEN COLLECTED 07/28/25 12:22 Blood Culture - Preliminary Blood SPECIMEN COLLECTED A&P Assessment and plan 1. Encephalopathy: Likely secondary to severe hyponatremia which seems chronic since the patient is asymptomatic Nephrology consulted Every 2 to every 4 hours sodium monitoring and patient to be kept in ICU Patient s/p 1 L, serum osmolality is low to send for urine studies for urine osmolarity electrolytes Follow nephrology recommendation Reorientation Fall precautions Neurocheck every shift Intake and output monitoring 2. Hyponatremia: Nephrology consulted and on board Hyponatremia of 118, repeated 119 after 1 L of fluids Serum osmolarity is low to wait for urine osmolarity and urine studies Avoid further fluids, and to follow the nephro recommendations Sodium monitoring every 2-4 hours Telemetry monitoring Neurochecks every shift Nova catheter in place and to maintain the catheter care, intake and output monitoring 3. Thyroid nodule: Stable as per the previous retrospective note send follow-up with the PCP 4. Anemia: Patient having Chronic microcytic anemia no obvious source of bleeding Anemia workup Monitor CBC 5. CAD (coronary artery disease): Patient home medication reviewed, As per the previous retrospective notes of 2022 patient was following with Dr. ERICK ESPINOZA, and she was only on metoprolol. To continue home dose metoprolol Medication reconciled after confirmation 6. Diabetes mellitus: Sent for HbA1c A1c is at 5.1, as per her age A1c is tightly controlled. Therefore not to give her any fixed doses of insulin Insulin sliding scale and monitor glucose 7. Essential hypertension: I did not see any antihypertensives in her reconcile home medications Blood pressure in 150s and higher Start amlodipine 5 mg daily and to monitor 8. COPD (chronic obstructive pulmonary disease): DuoNeb scheduled along with budesonide Monitor pulse ox and hemodynamics 9. Encounter for screening involving social determinants of health (SDoH): Patient lives with her son who works and come back later during he is working. As per the patient she stays alone and moves around in the house with a cane. She also reported having a fall Therefore considering her age, frailty and risk of fall, to have case management rn on board to further address her social determinants and safe disposition postdischarge. PDMP PDMP Reviewed: Not Reviewed Attestations Medical Necessity Statement*: Patient will stay more than 2 midnights requiring ICU due to severe hyponatremia, altered mentation and also further to address her social determinants of health. Time Spent in Patient Care: Greater than 35 minutes (>than 50% of time spent in counselling and/or direct pt care on unit). Critical Care Time: The high probability of a clinically significant, sudden or life threatening deterioration, as referenced in this documentation, required my full and direct attention, intervention and personal management. The critical care time shown is in addition to time spent performing any reported separately billable procedures and includes the following: [x] Data and vital sign review and interpretation [x] Patient assessment, examination and intervention [x] Medication orders and management [x] Patient/Family updates as able [x] Care Coordination and Documentation. Critical Care Time (min): 35 Other Attestations: Patient condition has been discussed at length with the patient/family, I have independently reviewed the chart labs imaging/diagnostics/EKG. the goals of care and code status with the patient/family/NOK/legal student services representative, and documented accordingly. I have reconciled the medications after confirmation/comorbidities/current clinical condition. The management has been done according to the current clinical condition with respect to patient goals of care and based on recommendations/guidelines. The patient/family has been informed about the current condition and further plan of care. Agreed with the plan of care and understood without any language barrier. Every effort was made to ensure accuracy of instructional resource teacher. Any obvious errors or omissions should be clarified with the author of the document. Coding Level of Care Code Critical Care >/= 30 minutes Diagnoses Encephalopathy G93.40 Hyponatremia E87.1 Thyroid nodule E04.1 Anemia D64.9 CAD (coronary artery disease) I25.10 Diabetes mellitus E11.9 Essential hypertension I10 COPD (chronic obstructive pulmonary disease) J44.9 Encounter for screening involving social determinants of health (SDoH) Z13.9
[2025-07-28 18:57] LABS: Troponin 5 6HR 20.73 ng/L (0-10); Troponin 5 6HR Delta 2.73 ng/L (0-12)
[2025-07-28 19:00] LABS: Ferritin 650 ng/mL (15-150); Iron 52 ug/dL (37-145); Total Iron Binding Capacity 266 mcg/dl; Unsaturated Iron Binding 214 ug/dL (112-347)
--- NOTE | 2025-07-28 19:00 | PM.CONSULT ---
Providers/Reason For Consult Consulting Physician/Specialty*: [facility]/Nephrology Reason for Consult*: Hyponatremia Attending Physician: Nicole Butler MD Primary Care Provider: Stew Ruiz DO History of Present Illness History of Present Illness Bharti Lua is a 74 year old female Patient is a 74-year-old female with past medical history of COPD hypertension dyslipidemia diabetes depression, sleep apnea on multiple psych medications, history of breast cancer and ovarian and uterine cancer, was brought to the emergency department due to altered mental status noted by the family members. Patient lives alone and when family members checked on her patient was noted to be confused. In the emergency department lab data was significant for sodium of 118, potassium was 3.2. Patient's home medications included Abilify, diclofenac duloxetine trazodone. Medications/Allergies Home Medications ?Medication ?Instructions ?Recorded ?Confirmed ?Last Taken ?Type atorvastatin 20 mg tablet 20 mg PO BEDTIME ##0 05/05/21 07/28/25 07/27/25 History magnesium oxide 400 mg PO DAILY 06/16/21 07/28/25 07/28/25 History blood pressure test kit-medium #1 ea 12/13/21 07/28/25 Unknown Rx ([employer] [facility]k Blood Pressure kit) metoprolol succinate 25 mg 37.5 mg (1.5 x 25 mg) PO BID #270 01/23/22 07/28/25 07/28/25 Rx tablet,extended release 24 hr tabs carboxymethylcellulose sodium 1 % 1 drp ophthalmic (eye) BID #15 mL 10/06/22 07/28/25 07/27/25 Rx eye drops (Artificial Tears (carboxymethylcellulose)) clonazepam 1 mg tablet (Klonopin) 1 mg PO TID PRN Anxiety #90 tabs 10/06/22 07/28/25 11/20/22 Rx ibuprofen 200 mg tablet (Advil) 200 mg PO Q6H PRN Pain 10/06/22 07/28/25 Unknown History Held on 11/20/22. Instructions: Resume on 11/23/22. [id number] 8 mg-folic 400 1 tab PO DAILY 10/06/22 07/28/25 07/28/25 History mcg-K 50 mcg-lutein 300 mcg tablet (Centrum Silver Women) nitroglycerin 0.4 mg sublingual 0.4 mg sublingual Q5M PRN chest 10/06/22 07/28/25 Unknown Rx tablet (Nitrostat) pain #25 tabs turmeric 400 mg capsule 400 mg PO DAILY 10/06/22 07/28/25 07/28/25 History Diabetic shoes with 3 pairs of #1 ea 10/25/22 07/28/25 Unknown Rx inserts fluticasone fur. 100 mcg-umeclid 1 inh inhalation DAILY COPD 11/06/22 07/28/25 07/27/25 History 62.5 mcg-vilant 25 mcg inhalat.powder (Trelegy Ellipta) diabetic shoe #1 ea 11/07/22 07/28/25 Unknown Rx aripiprazole 5 mg tablet (Abilify) 5 mg PO BEDTIME 11/30/22 07/28/25 07/27/25 History diclofenac sodium 75 mg 75 mg PO BID 11/30/22 07/28/25 07/28/25 History tablet,delayed release levalbuterol tartrate 45 2 puff inhalation Q4H 11/30/22 07/28/25 07/28/25 History mcg/actuation aerosol inhaler roflumilast 500 mcg tablet 500 mcg PO DAILY 11/30/22 07/28/25 07/28/25 History omeprazole 40 mg capsule,delayed 40 mg PO DAILY #30 caps 12/07/22 07/28/25 07/28/25 Rx release duloxetine 60 mg capsule,delayed 60 mg PO DAILY #90 caps 01/05/23 07/28/25 07/28/25 Rx release blood-glucose meter #1 ea 02/16/23 07/28/25 Unknown Rx lancets 30 gauge and blood glucose #200 ea 02/16/23 07/28/25 Unknown Rx strips combo pack albuterol sulfate 90 mcg/actuation 2 puff inhalation Q6H PRN 07/28/25 07/28/25 Unknown History aerosol inhaler Shortness Of Breath docusate sodium 100 mg capsule 100 mg PO BID 07/28/25 07/28/25 07/28/25 History (Colace) fluticasone propionate 110 1 puff inhalation DAILY 07/28/25 07/28/25 07/28/25 History mcg/actuation HFA aerosol inhaler fluticasone propionate 50 2 spray intranasal DAILY 07/28/25 07/28/25 07/28/25 History mcg/actuation nasal spray,suspension hydrocodone 5 mg-acetaminophen 325 1 tab PO QID PRN Pain 07/28/25 07/28/25 Unknown History mg tablet insulin glargine 100 unit/mL (3 35 unit SUBCUT BEDTIME 07/28/25 07/28/25 07/27/25 History mL) subcutaneous pen (Lantus Solostar U-100 Insulin) lactulose 10 gram/15 mL oral 15 ml PO TID PRN Constipation 07/28/25 07/28/25 Unknown History solution (Enulose) trazodone 100 mg tablet 400 mg PO BEDTIME 07/28/25 07/28/25 07/27/25 History Allergies Allergy/AdvReac Type Severity Reaction Status Date / Time No Known Allergies Allergy Verified 07/28/25 11:57 Current Medications Generic Name Dose Route Start Last Admin Trade Name Freq PRN Reason Stop Dose Admin Amlodipine Besylate 5 mg 07/28/25 18:20 07/28/25 18:57 Amlodipine 5 Mg Tablet PO 5 mg DAILY KARENA Administration Enoxaparin Sodium 40 mg 07/28/25 14:30 07/28/25 16:27 Enoxaparin 40 Mg/0.4 Ml Syringe SUBCUT 40 mg Q24H KARENA Administration Famotidine 20 mg 07/28/25 14:30 07/28/25 16:27 Famotidine 20 Mg/2 Ml Inj IVP 20 mg Q12H KARENA Administration Metoprolol Succinate 37.5 mg 07/28/25 17:00 07/28/25 17:38 Metoprolol Succinate Er (24 Hr) 25 Mg Tablet PO 37.5 mg BID KARENA Administration PFSH Acute PFSH: Medical History (Updated 07/28/25 @ 18:14 by Nicole Butler MD) Thyroid nodule History of breast cancer History of uterine cancer History of ovarian cancer History of cervical cancer Ex-cigarette smoker Bone spur of ankle Hyperlipidemia Diabetes mellitus Encounter for screening for lung cancer Persistent depressive disorder Obstructive sleep apnea Chronic post-traumatic stress disorder 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 Surgical History H/O ventral hernia repair History of hysterectomy Hx of colonoscopy 17 yrs ago History of esophagogastroduodenoscopy (EGD) 15-16 yrs ago Hx of total knee replacement left knee History of bilateral mastectomy Family History Mother Cancer female cancer Other Bleeding disorder CAD (coronary artery disease) Hypertension Lung disease Denies family history of Diabetes Clotting disorder Dementia Hyperlipidemia Psychiatric illness Chronic kidney disease (CKD) Anesthesia complication Stroke Social History Smoking and tobacco/nicotine status: former use of tobacco/nicotine Quit status (tobacco/nicotine): has quit using Year quit tobacco: 2006 [id number] Second hand smoke exposure: No Alcohol intake: never Substance/Drug Use: never Caregiver/support person: Yes Lives independently: Yes Housing: House Marital status: / Current occupational status: disabled Pets and animals: Yes Do you think of yourself as: Straight/Heterosexual Current gender identity: Female Vitals/I&O/Wt Last Vital Signs Temp 98.0 F 07/28/25 11:43 Pulse 77 07/28/25 18:10 Resp 15 07/28/25 18:10 BP 146/74 07/28/25 18:10 Pulse Ox 98 07/28/25 18:10 O2 Del Method Nasal Cannula 07/28/25 16:51 O2 Flow Rate 4 07/28/25 15:08 07/28/25 07/28/25 07/28/25 06:59 14:59 22:59 Intake Total 0 / 0 1000 / 1000 Balance 0 / 0 1000 / 1000 Weight last 48 hrs Weight 77.111 kg Physical Exam Narrative: 1. Patient is confused, no acute distress, awake and alert, patient's family at bedside No JVD PERRLA S1-S2 regular rate and Lungs clear bilaterally Abdomen soft nontender Extremities no pedal edema Skin no rash Urinary Catheter Management: Nova: Cath Placed During This Visit: yes Reason for Continuing Indwelling Catheter: Accurate Measurement of Urinary Output in Critically Ill Patients Urinary Catheter Date of Insertion: 07/28/25 Urinary Catheter Time of Insertion: 15:09 Data 07/28/25 12:22 07/28/25 15:12 Micro: Microbiology 07/28/25 12:21 Blood Culture - Preliminary Blood SPECIMEN COLLECTED 07/28/25 12:22 Blood Culture - Preliminary Blood SPECIMEN COLLECTED A&P Assessment and plan 1. Hyponatremia: Plan: 1. Hyponatremia: Acute on chronic, patient's baseline seems to be low due to multiple psych medications and acute worsening likely from poor oral intake. Noted urine sodium being low consistent with hypovolemia, urine osmolality pending. Patient received normal saline bolus in the ED and repeat sodium currently is at 119. Given altered mental status I will go ahead and start 3% saline at 20 cc an hour and monitor sodium levels closely. Goal sodium is to correct up to 6 mEq in 24 hours. 2. Altered mental status/encephalopathy, in the setting of hyponatremia, rule out other etiologies including acute infection. 3. History of coronary artery disease 4. Hypokalemia, replete 5. History of diabetes Patient evaluated using audiovisual cart. Time spent 40 minutes PDMP PDMP Reviewed: Not Reviewed Consult Attestations Medical Necessity Statement: per medicne Coding Level of Care Code Acute Code for [facility] Fwd Diagnoses Hyponatremia E87.1
[2025-07-28 19:08] LABS: Potassium, Radom Urine 19 mmol/L
[2025-07-28 19:12] LABS: Sodium 119 mmol/L (136-145); Vitamin B12 926 pg/mL (232-1245)
[2025-07-28 19:13] LABS: Urine Random Chloride 18 mmol/L; Urine Random Sodium 11 mmol/L
--- NOTE | 2025-07-28 19:33 | PC.NURSE ---
Addendum entered by KIKE Solis 07/29/25 01:02: Patients sodium resulted at 0100 at 0122. This fell within parameters to not call with result, so she was not called. Sodium will be redrawn during AM labs. Original Note: called and updated this nurse on orders for patient. Gave verbal orders to call if patients sodium is below 119 or greater than 122 when recheck is done at 2330.
[2025-07-28] MEDS: ATORVASTATIN 20 MG TABLET PO (19:52)
[2025-07-29] VITALS (95 sets, daily range): BP systolic 98–158; BP diastolic 42–82; PULSE 48–86; RESP 14–31; TEMP 36.3–36.8; O2SAT 88–100
[2025-07-29 00:42] LABS: Sodium 122 mmol/L (136-145)
[2025-07-29 04:03] LABS: Hematocrit 23.4 % (36-47); Hemoglobin 8.00 g/dL (11.27-16.99); Mean Corpuscular HGB Conc 34.2 g/dL (30-55); Mean Corpuscular Hemoglobin 32.0 pg (27-33); Mean Corpuscular Volume 93.6 fl (85-98); Nucleated Red Blood Cells % 0.6 %; Platelet Count 290 10^3/cmm (157-399); Red Blood Count 2.50 10^6/uL (3.85-5.65); White Blood Count 6.31 10^3/uL (3.29-11.43)
[2025-07-29 04:32] LABS: Alanine Aminotransferase 13 U/L (0-33); Albumin Level 3.9 g/dL (3.5-5.2); Alkaline Phosphatase 50 U/L (35-105); Anion Gap 14.4 (5-19); Aspartate Amino Transferase 29 U/L (0-32); Blood Urea Nitrogen 9 mg/dL (8-23); Calcium 8.6 mg/dL (8.5-10.5); Carbon Dioxide 26 mmol/L (22-29); Chloride 88 mmol/L (98-107); Globulin 1.8 g/dL (1.3-4.6); Glucose 95 mg/dL (65-115); Osmolality Calculated 258 mOsm/kg (285-295); Potassium 3.4 mmol/L (3.5-5.1); Sodium 125 mmol/L (136-145); Total Protein 5.7 g/dL (6.6-8.7)
--- NOTE | 2025-07-29 04:47 | PC.NURSE ---
Addendum entered by KIKE Solis 07/29/25 06:10: called unit and gave orders for 250ml bolus of D5W x1. Then redraw labs 1 hour after complete. Order placed Addendum entered by KIKE Solis 07/29/25 04:50: Update with lab values after results. Original Note: updated with patients morning sodium level. Gave orders to redraw sodium in 2 hours. Order placed.
--- NOTE | 2025-07-29 04:51 | PC.NURSE ---
Patient has been bradycardic through the shift, maintaining heartrate in the 50-60 range, asymptomatic. notified and he gave orders to amlodipine.
[2025-07-29 08:29] LABS: Sodium 124 mmol/L (136-145)
--- NOTE | 2025-07-29 10:14 | PC.NURSE ---
Dr. Florian called gave order to draw NA level in 4 hours
--- NOTE | 2025-07-29 13:50 | P.PN_ITS ---
Subjective 2 Subjective: mental status slightly improved Medications: Reviewed: Yes Vitals/I&O/Wt Last Vital Signs Temp 98.2 F 07/29/25 06:00 Pulse 59 L 07/29/25 13:29 Resp 16 07/29/25 13:28 BP 134/58 07/29/25 12:15 Pulse Ox 95 07/29/25 13:28 O2 Del Method Nasal Cannula 07/29/25 13:28 O2 Flow Rate 2 07/29/25 13:28 07/28/25 07/29/25 07/29/25 22:59 06:59 14:59 Intake Total 1400 / 1400 84.333 / 1484.333 Output Total 220 / 220 500 / 720 Balance 1180 / 1180 -415.667 / 764.333 Weight last 48 hrs Weight 77.8 kg Weight 78 kg Weight 77.111 kg Physical Exam 2 Narrative: 1. Patient is confused, no acute distre ss, awake and alert, patient's family at bedside No JVD PERRLA S1-S2 regular rate and Lungs clear bilaterally Abdomen soft nontender Extremities no pedal edema Skin no rash Urinary Catheter Management: Nova: Cath Placed During This Visit: yes Reason for Continuing Indwelling Catheter: Accurate Measurement of Urinary Output in Critically Ill Patients Urinary Catheter Date of Insertion: 07/28/25 Urinary Catheter Time of Insertion: 15:09 Data 07/29/25 02:46 07/29/25 07:58 Micro: Microbiology 07/28/25 12:21 Blood Culture - Preliminary Blood NEGATIVE TO DATE 07/28/25 12:22 Blood Culture - Preliminary Blood NEGATIVE TO DATE A&P Assessment and plan 1. Hyponatremia: Plan: 1. Hyponatremia: Acute on chronic, patient's baseline seems to be low due to multiple psych medications and acute worsening likely from poor oral intake. Noted urine sodium being low consistent with hypovolemia, urine osmolality pending. Patient received normal saline bolus in the ED and repeat sodium was 119--> s/p 3% saline , Na 124 currently , awaiting next sodium , Urine Na 11 --> consistent with volume depletion. Goal sodium is to correct up to 6 mEq in 24 hours. 2. Altered mental status/encephalopathy, in the setting of hyponatremia, rule out other etiologies including acute infection. 3. History of coronary artery disease 4. Hypokalemia, replete 5. History of diabetes Patient evaluated using audiovisual cart. Time spent 40 minutes PDMP PDMP Reviewed: Not Reviewed Attestations 2 Medical Necessity Statement*: per medicine Coding Level of Care Code Acute Code for [facility] Fwd Diagnoses Hyponatremia E87.1
[2025-07-29 14:18] LABS: Sodium 126 mmol/L (136-145)
[2025-07-29] MEDS: metoprolol succinate ER (24 HR) 25 mg Tablet 37.5 MG PO (16:34)
[2025-07-29 18:08] LABS: Sodium 125 mmol/L (136-145)
[2025-07-29] MEDS: ATORVASTATIN 20 MG TABLET PO (20:37)
--- NOTE | 2025-07-29 22:19 | P.PN_ITS ---
Subjective 2 Subjective: mental status slightly improved and is alert and oriented doing better nephro onboard, sodium levels improving gradually Medications: Reviewed: Yes Vitals/I&O/Wt Last Vital Signs Temp 98.2 F 07/29/25 06:00 Pulse 64 07/29/25 22:00 Resp 16 07/29/25 22:00 BP 127/66 07/29/25 22:00 Pulse Ox 95 07/29/25 22:00 O2 Del Method Nasal Cannula 07/29/25 19:18 O2 Flow Rate 2 07/29/25 19:18 07/29/25 07/29/25 07/29/25 06:59 14:59 22:59 Intake Total 84.333 / 1484.333 225 / 225 620 / 845 Output Total 500 / 720 1350 / 1350 Balance -415.667 / 764.333 225 / 225 -730 / -505 Weight last 48 hrs Weight 77.8 kg Weight 78 kg Weight 77.111 kg Physical Exam 2 Narrative: General: Alert and oriented, lying comfortably without any distress, with Nova's catheter HEENT: Normocephalic, atraumatic, grossly unremarkable exam Cardio: normal rate rhythm, normal S1-S2 without any murmurs, rubs, or gallops and JVD normal Respiratory: normal vascular breathing on auscultation without any wheezes, stridor, rhonchi GI: Abdomen soft, nontender, nondistended, normoactive bowel sounds present all 4 quadrants, Neuro: intact cranial nerves motor and sensory and cerebellar/coordination function without any focal neurological deficit Behavior: Appropriate and cooperative Extremities: Adequate palpable pulses, mild trace edema Urinary Catheter Management: Nova: Cath Placed During This Visit: yes Reason for Continuing Indwelling Catheter: Accurate Measurement of Urinary Output in Critically Ill Patients Urinary Catheter Date of Insertion: 07/28/25 Urinary Catheter Time of Insertion: 15:09 Data 07/29/25 02:46 07/29/25 23:08 Micro: Microbiology 07/28/25 12:21 Blood Culture - Preliminary Blood NEGATIVE TO DATE 07/28/25 12:22 Blood Culture - Preliminary Blood NEGATIVE TO DATE A&P Assessment and plan 1. Metabolic encephalopathy: Likely secondary to severe hyponatremia which seems chronic since the patient is asymptomatic and currently improving, seems chronic in nature Nephrology consulted Every 2 to every 4 hours sodium monitoring and patient to be kept in ICU Patient s/p 1 L, urine studies and hyponatremia work up reviewed Follow nephrology recommendation Reorientation Fall precautions Neurocheck every shift Intake and output monitoring 2. Hyponatremia: Nephrology consulted and on board Hyponatremia of 118 at presentation currently around 125-128 hyponatremia work up reviewed, pending urine osm Avoid further fluids, and to follow the nephro recommendations Sodium monitoring every 2-4 hours Telemetry monitoring Neurochecks every shift Nova catheter in place and to maintain the catheter care, intake and output monitoring 3. Thyroid nodule: Stable as per the previous retrospective note send follow-up with the PCP 4. Anemia: Patient having Chronic microcytic anemia no obvious source of bleeding Anemia workup reviewed Monitor CBC 5. CAD (coronary artery disease): Patient home medication reviewed, As per the previous retrospective notes of 2022 patient was following with Dr. ERICK ESPINOZA, and she was only on metoprolol. To continue home dose metoprolol Medication reconciled after confirmation 6. Diabetes mellitus: Sent for HbA1c A1c is at 5.1, as per her age A1c is tightly controlled. Therefore not to give her any fixed doses of insulin Insulin sliding scale and monitor glucose 7. Essential hypertension: I did not see any antihypertensives in her reconcile home medications Blood pressure in 150s and higher Start amlodipine 5 mg daily and to monitor 8. Centrilobular emphysema: DuoNeb scheduled along with budesonide Monitor pulse ox and hemodynamics 9. Encounter for screening involving social determinants of health (SDoH): Patient lives with her son who works and come back later during he is working. As per the patient she stays alone and moves around in the house with a cane. She also reported having a fall Therefore considering her age, frailty and risk of fall, to have rn case mgr on board to further address her social determinants and safe disposition postdischarge. 10. Hypokalemia: correction provided follow up tomorrow PDMP PDMP Reviewed: Not Reviewed Attestations 2 Medical Necessity Statement*: Patient will stay more than 2 midnights for the management of severe hyponatremia and altered mentation requiring nephrology for inpatient and rn case mgr for postdischarge care and management Time Spent in Patient Care: 16 - 35 minutes (>than 50% of time sp ent in counselling and/or direct pt care on unit) . Critical Care Time: The high probability of a clinically significant, sudden or life threatening deterioration, as referenced in this documentation, required my full and direct attention, intervention and personal management. The critical care time shown is in addition to time spent performing any reported separately billable procedures and includes the following: [x] Data and vital sign review and interpretation [x ] Patient assessment, examination and intervention [x] Medication orders and management [x] Patient/Family updates as able [x] Care Coordination and Documentation. Critical Care Time (min): 35 Other Attestations: Patient condition has been discussed at length with the patient/family, I have independently reviewed the chart labs imaging/diagnostics/EKG. the goals of care and code status with the patient/family/NOK/legal hardware supplies sales representative, and documented accordingly. I have reconciled the medications after confirmation/comorbidities/current clinical condition. The management has been done according to the current clinical condition with respect to patient goals of care and based on recommendations/guidelines. The patient/family has been informed about the current condition and further plan of care. Agreed with the plan of care and understood without any language barrier. Every effort was made to ensure accuracy of sheepskin pickler. Any obvious errors or omissions should be clarified with the author of the document. Coding Level of Care Code Critical Care >/= 30 minutes Diagnoses Metabolic encephalopathy G93.41 Encephalopathy type: metabolic Hyponatremia E87.1 Thyroid nodule E04.1 Anemia D64.9 CAD (coronary artery disease) I25.10 Diabetes mellitus E11.9 Essential hypertension I10 Centrilobular emphysema J43.2 COPD type: emphysema Emphysema type: centrilobular Encounter for screening involving social determinants of health (SDoH) Z13.9 Hypokalemia E87.6
[2025-07-29 23:43] LABS: Sodium 128 mmol/L (136-145)
[2025-07-30] VITALS (42 sets, daily range): BP systolic 102–147; BP diastolic 51–83; PULSE 57–124; RESP 16–30; TEMP 36.2–36.8; O2SAT 90–99
[2025-07-30 01:45] LABS: Hematocrit 24.3 % (36-47); Hemoglobin 8.40 g/dL (11.27-16.99); Mean Corpuscular HGB Conc 34.6 g/dL (30-55); Mean Corpuscular Hemoglobin 31.9 pg (27-33); Mean Corpuscular Volume 92.4 fl (85-98); Nucleated Red Blood Cells % 0.4 %; Platelet Count 330 10^3/cmm (157-399); Red Blood Count 2.63 10^6/uL (3.85-5.65); White Blood Count 9.32 10^3/uL (3.29-11.43)
[2025-07-30 02:02] LABS: Sodium 128 mmol/L (136-145)
--- NOTE | 2025-07-30 05:03 | PC.NURSE ---
Metoprolol held due to patient being bradycardic. Heartrate maintaining 50-60.
[2025-07-30 06:39] LABS: Alanine Aminotransferase 12 U/L (0-33); Albumin Level 3.9 g/dL (3.5-5.2); Alkaline Phosphatase 55 U/L (35-105); Anion Gap 9.7 (5-19); Aspartate Amino Transferase 19 U/L (0-32); Blood Urea Nitrogen 5 mg/dL (8-23); Calcium 9.0 mg/dL (8.5-10.5); Carbon Dioxide 31 mmol/L (22-29); Chloride 91 mmol/L (98-107); Globulin 2.1 g/dL (1.3-4.6); Glucose 127 mg/dL (65-115); Osmolality Calculated 265 mOsm/kg (285-295); Potassium 3.7 mmol/L (3.5-5.1); Sodium 128 mmol/L (136-145); Total Protein 6.0 g/dL (6.6-8.7)
--- NOTE | 2025-07-30 08:12 | P.PN_ITS ---
Subjective 2 Subjective: feels better Mental status improved Medications: Reviewed: Yes Vitals/I&O/Wt Last Vital Signs Temp 98.2 F 07/30/25 04:18 Pulse 70 07/30/25 07:43 Resp 18 07/30/25 07:43 BP 135/60 07/30/25 06:00 Pulse Ox 95 07/30/25 07:43 O2 Del Method Nasal Cannula 07/30/25 07:43 O2 Flow Rate 1 07/30/25 07:43 07/29/25 07/30/25 07/30/25 22:59 06:59 14:59 Intake Total 620 / 845 Output Total 1350 / 1350 875 / 2225 Balance -730 / -505 -875 / -1380 Weight last 48 hrs Weight 77.8 kg Weight 78 kg Weight 77.111 kg Physical Exam 2 Narrative: 1. Patient is confused, no acute distre ss, awake and alert, patient's family at bedside No JVD PERRLA S1-S2 regular rate and Lungs clear bilaterally Abdomen soft nontender Extremities no pedal edema Skin no rash Urinary Catheter Management: Nova: Cath Placed During This Visit: yes Reason for Continuing Indwelling Catheter: Accurate Measurement of Urinary Output in Critically Ill Patients Urinary Catheter Date of Insertion: 07/28/25 Urinary Catheter Time of Insertion: 15:09 Data 07/30/25 00:58 07/30/25 06:17 Micro: Microbiology 07/28/25 12:21 Blood Culture - Preliminary Blood NEGATIVE TO DATE 07/28/25 12:22 Blood Culture - Preliminary Blood NEGATIVE TO DATE A&P Assessment and plan 1. Hyponatremia: Plan: 1. Hyponatremia: Acute on chronic, patient's baseline seems to be low due to multiple psych medications and acute worsening likely from poor oral intake. Noted urine sodium being low consistent with hypovolemia, urine osmolality pending. Patient received normal saline bolus in the ED and repeat sodium was 119--> s/p 3% saline , Na 128 currently , awaiting next sodium , Goal sodium is to correct up to 6 mEq in 24 hours. 2. Altered mental status/encephalopathy, in the setting of hyponatremia, improved, ? h/o dementia 3. History of coronary artery disease 4. Hypokalemia, replete 5. History of diabetes Patient evaluated using audiovisual cart. Time spent 40 minutes PDMP PDMP Reviewed: Not Reviewed Attestations 2 Medical Necessity Statement*: per doris Coding Level of Care Code Acute Code for Chg Fwd Diagnoses Hyponatremia E87.1
[2025-07-30 12:35] LABS: Sodium 129 mmol/L (136-145)
--- NOTE | 2025-07-30 16:20 | PM.PN ---
Subjective Subjective: the patient was seen in the morning, still confused and feels better Mental status improved relatively from the day of admission Medications: Reviewed: Yes Vitals/I&O/Wt Last Vital Signs Temp 97.1 F L 07/30/25 16:00 Pulse 99 07/30/25 16:00 Resp 19 H 07/30/25 16:00 BP 147/70 07/30/25 16:00 Pulse Ox 91 07/30/25 16:00 O2 Del Method Room Air 07/30/25 16:00 O2 Flow Rate 1 07/30/25 08:00 07/30/25 07/30/25 07/30/25 06:59 14:59 22:59 Intake Total 600 / 600 Output Total 875 / 2225 Balance -875 / -1380 600 / 600 Weight last 48 hrs Weight 77.8 kg Weight 78 kg Physical Exam Narrative: General: Alert and oriented to time and person, sometimes to place and sometimes disoriented to time, lying comfortably without any distress, with Nova's catheter HEENT: Normocephalic, atraumatic, grossly unremarkable exam Cardio: normal rate rhythm, normal S1-S2 without any murmurs, rubs, or gallops and JVD normal Respiratory: normal vascular breathing on auscultation without any wheezes, stridor, rhonchi GI: Abdomen soft, nontender, nondistended, normoactive bowel sounds present all 4 quadrants, Neuro: Grossly alert and motor and sensory function intact with coordination as well Behavior: Appropriate and cooperative. Extremities: Adequate palpable pulses, mild trace edema Urinary Catheter Management: Nova: Cath Placed During This Visit: yes Reason for Continuing Indwelling Catheter: Accurate Measurement of Urinary Output in Critically Ill Patients Urinary Catheter Date of Insertion: 07/28/25 Urinary Catheter Time of Insertion: 15:09 Data 07/30/25 00:58 07/30/25 11:49 Micro: Microbiology 07/28/25 12:21 Blood Culture - Preliminary Blood NEGATIVE TO DATE 07/28/25 12:22 Blood Culture - Preliminary Blood NEGATIVE TO DATE A&P Assessment and plan 1. Metabolic encephalopathy: Likely secondary to severe hyponatremia which seems chronic since the patient is asymptomatic and currently improving, seems chronic in nature Nephrology consulted Every 2 to every 4 hours sodium monitoring and patient to be kept in ICU Patient s/p 1 L, urine studies and hyponatremia work up reviewed Follow nephrology recommendation Reorientation Fall precautions Neurocheck every shift Intake and output monitoring 2. Hyponatremia: Nephrology consulted and on board Hyponatremia of 118 at presentation currently around 129 and nephrology onboard Patient started on urea sodium tablets hyponatremia work up reviewed, urine osmolality normal with serum osmolarity low range coinciding with high likelihood of SIADH? Avoid further fluids, and to follow the nephro recommendations Regular sodium monitoring Telemetry monitoring Neurochecks every shift Nova catheter in place and to maintain the catheter care, intake and output monitoring 3. Thyroid nodule: Stable as per the previous retrospective note send follow-up with the PCP 4. Anemia: Patient having Chronic microcytic anemia no obvious source of bleeding Anemia workup reviewed, seems anemia of chronic disease, normal vitamin B12 and folate levels with high ferritin and normal TIBC Stable hemoglobin and to continue monitor 5. CAD (coronary artery disease): Patient home medication reviewed, As per the previous retrospective notes of 2022 patient was following with Dr. ERICK ESPINOZA, and she was only on metoprolol. To continue home dose metoprolol Medication reconciled after confirmation 6. Diabetes mellitus: Sent for HbA1c A1c is at 5.1, as per her age A1c is tightly controlled. Therefore not to give her any fixed doses of insulin Insulin sliding scale and monitor glucose 7. Essential hypertension: I did not see any antihypertensives in her reconcile home medications Blood pressure better controlled. Continue amlodipine 5 mg daily and to monitor 8. Centrilobular emphysema: DuoNeb scheduled along with budesonide Monitor pulse ox and hemodynamics 9. Encounter for screening involving social determinants of health (SDoH): Patient lives with her son who works and come back later during he is working. As per the patient she stays alone and moves around in the house with a cane. She also reported having a fall Therefore considering her age, frailty and risk of fall, to have employment evaluator/case manager on board to further address her social determinants and safe disposition postdischarge. 10. Hypokalemia: correction provided follow up tomorrow PDMP PDMP Reviewed: Not Reviewed Attestations Medical Necessity Statement*: Patient will stay overnight for the management of hyponatremia and follow the recommendation from the nephrology, pending arrangement by the employment evaluator/case manager for safe disposition Time Spent in Patient Care: 16 - 35 minutes (>than 50% of time spent in counselling and/or direct pt care on unit). Other Attestations: Patient condition has been discussed at length with the patient/family, I have independently reviewed the chart labs imaging/diagnostics/EKG. the goals of care and code status with the patient/family/NOK/legal sales representative metals, and documented accordingly. I have reconciled the medications after confirmation/comorbidities/current clinical condition. The management has been done according to the current clinical condition with respect to patient goals of care and based on recommendations/guidelines. The patient/family has been informed about the current condition and further plan of care. Agreed with the plan of care and understood without any language barrier. Every effort was made to ensure accuracy of soil surveyor. Any obvious errors or omissions should be clarified with the author of the document. Coding Level of Care Code 59467 Diagnoses Metabolic encephalopathy G93.41 Encephalopathy type: metabolic Hyponatremia E87.1 Thyroid nodule E04.1 Anemia D64.9 CAD (coronary artery disease) I25.10 Diabetes mellitus E11.9 Essential hypertension I10 Centrilobular emphysema J43.2 COPD type: emphysema Emphysema type: centrilobular Encounter for screening involving social determinants of health (SDoH) Z13.9 Hypokalemia E87.6
[2025-07-30] MEDS: artificial tears Op Soln 15 mL Btl 1 DROP EYE-BOTH (16:30)
[2025-07-30] MEDS: metoprolol succinate ER (24 HR) 25 mg Tablet 37.5 MG PO (16:31)
[2025-07-30 18:57] LABS: Sodium 129 mmol/L (136-145)
[2025-07-30] MEDS: ATORVASTATIN 20 MG TABLET PO (20:04)
[2025-07-31] VITALS (23 sets, daily range): BP systolic 87–159; BP diastolic 56–90; PULSE 66–113; RESP 15–25; TEMP 36.3–36.4; O2SAT 93–96
[2025-07-31 04:00] LABS: Hematocrit 26.0 % (36-47); Hemoglobin 8.80 g/dL (11.27-16.99); Mean Corpuscular HGB Conc 33.8 g/dL (30-55); Mean Corpuscular Hemoglobin 32.1 pg (27-33); Mean Corpuscular Volume 94.9 fl (85-98); Nucleated Red Blood Cells % 0.6 %; Platelet Count 380 10^3/cmm (157-399); Red Blood Count 2.74 10^6/uL (3.85-5.65); White Blood Count 8.17 10^3/uL (3.29-11.43)
[2025-07-31] MEDS: metoprolol succinate ER (24 HR) 25 mg Tablet 37.5 MG PO ×2 (04:08→17:17)
[2025-07-31] MEDS: artificial tears Op Soln 15 mL Btl 1 DROP EYE-BOTH ×2 (04:09→17:17)
[2025-07-31 04:22] LABS: Alanine Aminotransferase 13 U/L (0-33); Albumin Level 4.0 g/dL (3.5-5.2); Alkaline Phosphatase 57 U/L (35-105); Anion Gap 14.6 (5-19); Aspartate Amino Transferase 19 U/L (0-32); Blood Urea Nitrogen 12 mg/dL (8-23); Calcium 9.4 mg/dL (8.5-10.5); Carbon Dioxide 28 mmol/L (22-29); Chloride 92 mmol/L (98-107); Globulin 2.3 g/dL (1.3-4.6); Glucose 132 mg/dL (65-115); Osmolality Calculated 274 mOsm/kg (285-295); Potassium 3.6 mmol/L (3.5-5.1); Sodium 131 mmol/L (136-145); Total Protein 6.3 g/dL (6.6-8.7)
--- NOTE | 2025-07-31 08:25 | P.PN_ITS ---
Subjective 2 Subjective: no new c/o Medications: Reviewed: Yes Vitals/I&O/Wt Last Vital Signs Temp 97.6 F 07/31/25 07:30 Pulse 89 07/31/25 08:08 Resp 16 07/31/25 08:00 BP 150/81 07/31/25 07:00 Pulse Ox 93 07/31/25 08:00 O2 Del Method Room Air 07/31/25 08:00 O2 Flow Rate 1 07/30/25 08:00 07/30/25 07/31/25 07/31/25 22:59 06:59 14:59 Intake Total 250 / 850 Output Total 900 / 900 900 / 1800 Balance -650 / -50 -900 / -950 Weight last 48 hrs Weight 79.832 kg Physical Exam 2 Narrative: , no acute distress, awake and alert, patient's family at bedside No JVD PERRLA S1-S2 regular rate and Lungs clear bilaterally Abdomen soft nontender Extremities no pedal edema Skin no rash Urinary Catheter Management: Nova: Cath Placed During This Visit: yes Reason for Continuing Indwelling Catheter: Accurate Measurement of Urinary Output in Critically Ill Patients Urinary Catheter Date of Insertion: 07/28/25 Urinary Catheter Time of Insertion: 15:09 Data 07/31/25 03:40 07/31/25 03:40 A&P Assessment and plan 1. Hyponatremia: Plan: 1. Hyponatremia: Acute on chronic, patient's baseline seems to be low due to multiple psych medications and acute worsening likely from poor oral intake. Noted urine sodium being low consistent with hypovolemia, urine osmolality pending. Patient received normal saline bolus in the ED and repeat sodium was 119--> s/p 3% saline , Na 131 currently . continue fluid restriction to 1500 cc/day 2. Altered mental status/encephalopathy, in the setting of hyponatremia, improved, ? h/o dementia 3. History of coronary artery disease 4. Hypokalemia, repleted 5. History of diabetes Patient evaluated using audiovisual cart. Time spent 40 minutes PDMP PDMP Reviewed: Not Reviewed Attestations 2 Medical Necessity Statement*: per doris Coding Level of Care Code Acute Code for Chg Fwd Diagnoses Hyponatremia E87.1
--- NOTE | 2025-07-31 08:28 | PC.SOCIAL ---
IMM Updated Updated pt's son on IMM. No questions voiced. Provided pt a copy. Initialed, dated, & timed a copy & placed in chart.
--- NOTE | 2025-07-31 19:07 | PC.NURSE ---
Shift summary: Pt is alert to self. She has spent her time between going from chair to bed. She has ambulated 3-4 times around unit and/or chiang with 1 assist. She is easily re-directable. Sinus rhythm noted on monitor. She has ate at least half of every meal. She has had 1205 ml of urine catheter output. Three Bm noted this shift, she has been continent of bowel.
--- NOTE | 2025-07-31 19:32 | P.PN_ITS ---
Subjective 2 Subjective: the patient was seen in the morning, still mildly confused however relatively better than the time of admission. Reorientation and direction to the patient when provided she follows pleasantly. Medications: Reviewed: Yes Vitals/I&O/Wt Last Vital Signs Temp 97.3 F L 07/31/25 12:00 Pulse 101 H 07/31/25 18:00 Resp 24 H 07/31/25 18:00 BP 133/72 07/31/25 19:00 Pulse Ox 96 07/31/25 18:00 O2 Del Method Room Air 07/31/25 18:00 O2 Flow Rate 1 07/30/25 08:00 07/31/25 07/31/25 07/31/25 06:59 14:59 22:59 Intake Total 550 / 550 300 / 850 Output Total 900 / 1800 1205 / 1205 Balance -900 / -950 550 / 550 -905 / -355 Weight last 48 hrs Weight 79.832 kg Physical Exam 2 Narrative: General: Alert and oriented to time and person, sometimes to place and sometimes disoriented to time, lying comfortably without any distress, with Nova's catheter HEENT: Normocephalic, atraumatic, grossly unremarkable exam Cardio: normal rate rhythm, normal S1-S2 without any murmurs, rubs, or gallops and JVD normal Respiratory: normal vascular breathing on auscultation without any wheezes, stridor, rhonchi GI: Abdomen soft, nontender, nondistended, normoactive bowel sounds present all 4 quadrants, Neuro: Grossly alert and motor and sensory function intact with coordination as well Behavior: Appropriate and cooperative. Extremities: Adequate palpable pulses, mild trace edema Urinary Catheter Management: Nova: Cath Placed During This Visit: yes Reason for Continuing Indwelling Catheter: Accurate Measurement of Urinary Output in Critically Ill Patients Urinary Catheter Date of Insertion: 07/28/25 Urinary Catheter Time of Insertion: 15:09 Data 07/31/25 03:40 07/31/25 03:40 A&P Assessment and plan 1. Metabolic encephalopathy: Likely secondary to severe hyponatremia which seems chronic since the patient is asymptomatic and currently improving, seems chronic in nature. S/p hypertonic saline and hydration. Sodium level around 131 Nephrology consulted Every 2 to every 4 hours sodium monitoring and patient to be kept in ICU. Urine studies and hyponatremia work up reviewed Follow nephrology recommendation Reorientation Fall precautions Neurocheck every shift Intake and output monitoring 2. Hyponatremia: Nephrology consulted and on board Hyponatremia of 118 at presentation s/p hydration and hypertonic saline, currently at 131 Continue urea/sodium tablet hyponatremia work up reviewed, urine osmolality normal with serum osmolarity low range coinciding with high likelihood of SIADH? Avoid further fluids, and to follow the nephro recommendations Regular sodium monitoring Telemetry monitoring Neurochecks every shift Nova catheter in place and to maintain the catheter care, intake and output monitoring 3. Thyroid nodule: Stable as per the previous retrospective note send follow-up with the PCP 4. Anemia: Patient having Chronic microcytic anemia no obvious source of bleeding Anemia workup reviewed, seems anemia of chronic disease, normal vitamin B12 and folate levels with high ferritin and normal TIBC Stable hemoglobin and to continue monitor 5. CAD (coronary artery disease): Patient home medication reviewed, As per the previous retrospective notes of 2022 patient was following with Dr. ERICK ESPINOZA, and she was only on metoprolol. To continue home dose metoprolol Medication reconciled after confirmation 6. Diabetes mellitus: Sent for HbA1c A1c is at 5.1, as per her age A1c is tightly controlled. Therefore not to give her any fixed doses of insulin Insulin sliding scale and monitor glucose 7. Essential hypertension: Continue amlodipine 5 mg daily and to monitor 8. Centrilobular emphysema: DuoNeb scheduled along with budesonide Monitor pulse ox and hemodynamics 9. Encounter for screening involving social determinants of health (SDoH): Patient lives with her son who works and come back later during he is working. As per the patient she stays alone and moves around in the house with a cane. She also reported having a fall Therefore considering her age, frailty and risk of fall, to have case packer on board to further address her social determinants and safe disposition postdischarge. 10. Hypokalemia: Resolved, continue to monitor PDMP PDMP Reviewed: Not Reviewed Attestations 2 Medical Necessity Statement*: Patient will stay overnight for further safe disposition based on her frailty and possibility of falls. embedded software manager is on board and to follow the plan of disposition, currently arrangements are being done Time Spent in Patient Care: 16 - 35 minutes (>than 50% of time sp ent in counselling and/or direct pt care on unit) . Other Attestations: Patient condition has been discussed at length with the patient/family, I have independently reviewed the chart labs imaging/diagnostics/EKG. the goals of care and code status with the patient/family/NOK/legal automotive leasing sales representative, and documented accordingly. I have reconciled the medications after confirmation/comorbidities/current clinical condition. The management has been done according to the current clinical condition with respect to patient goals of care and based on recommendations/guidelines. The patient/family has been informed about the current condition and further plan of care. Agreed with the plan of care and understood without any language barrier. Every effort was made to ensure accuracy of computer game programmer. Any obvious errors or omissions should be clarified with the author of the document. Coding Level of Care Code Acute Code for Chg Fwd Diagnoses Metabolic encephalopathy G93.41 Encephalopathy type: metabolic Hyponatremia E87.1 Thyroid nodule E04.1 Anemia D64.9 CAD (coronary artery disease) I25.10 Diabetes mellitus E11.9 Essential hypertension I10 Centrilobular emphysema J43.2 COPD type: emphysema Emphysema type: centrilobular Encounter for screening involving social determinants of health (SDoH) Z13.9 Hypokalemia E87.6
[2025-07-31] MEDS: ATORVASTATIN 20 MG TABLET PO (20:59)
[2025-08-01] VITALS (15 sets, daily range): BP systolic 113–140; BP diastolic 57–85; PULSE 65–109; RESP 16–25; TEMP 36.2–36.5; O2SAT 92–98
[2025-08-01 04:42] LABS: Hematocrit 27.1 % (36-47); Hemoglobin 9.00 g/dL (11.27-16.99); Mean Corpuscular HGB Conc 33.2 g/dL (30-55); Mean Corpuscular Hemoglobin 31.7 pg (27-33); Mean Corpuscular Volume 95.4 fl (85-98); Nucleated Red Blood Cells % 0.4 %; Platelet Count 419 10^3/cmm (157-399); Red Blood Count 2.84 10^6/uL (3.85-5.65); White Blood Count 6.79 10^3/uL (3.29-11.43)
[2025-08-01 05:07] LABS: Alanine Aminotransferase 12 U/L (0-33); Albumin Level 4.2 g/dL (3.5-5.2); Alkaline Phosphatase 58 U/L (35-105); Anion Gap 13.5 (5-19); Aspartate Amino Transferase 15 U/L (0-32); Blood Urea Nitrogen 11 mg/dL (8-23); Calcium 9.6 mg/dL (8.5-10.5); Carbon Dioxide 31 mmol/L (22-29); Chloride 95 mmol/L (98-107); Globulin 2.4 g/dL (1.3-4.6); Glucose 128 mg/dL (65-115); Osmolality Calculated 283 mOsm/kg (285-295); Potassium 3.5 mmol/L (3.5-5.1); Sodium 136 mmol/L (136-145); Total Protein 6.6 g/dL (6.6-8.7)
[2025-08-01] MEDS: artificial tears Op Soln 15 mL Btl 1 DROP EYE-BOTH ×2 (06:38→16:51)
[2025-08-01] MEDS: metoprolol succinate ER (24 HR) 50 mg Tablet PO ×2 (06:38→16:51)
--- NOTE | 2025-08-01 09:33 | PM.PN ---
Subjective Subjective: no new c/o Medications: Reviewed: Yes Vitals/I&O/Wt Last Vital Signs Temp 97.4 F L 07/31/25 21:02 Pulse 86 08/01/25 08:00 Resp 16 08/01/25 08:00 BP 113/78 08/01/25 07:00 Pulse Ox 94 08/01/25 08:00 O2 Del Method Room Air 08/01/25 08:00 O2 Flow Rate 1 07/30/25 08:00 07/31/25 08/01/25 08/01/25 22:59 06:59 14:59 Intake Total 300 / 850 320 / 320 Output Total 1205 / 1205 1600 / 2805 Balance -905 / -355 -1600 / -1955 320 / 320 Weight last 48 hrs Weight 80.739 kg Weight 79.832 kg Physical Exam Narrative: , no acute distress, awake and alert, patient's family at bedside No JVD PERRLA S1-S2 regular rate and Lungs clear bilaterally Abdomen soft nontender Extremities no pedal edema Skin no rash Urinary Catheter Management: Nova: Cath Placed During This Visit: yes Reason for Continuing Indwelling Catheter: Accurate Measurement of Urinary Output in Critically Ill Patients Urinary Catheter Date of Insertion: 07/28/25 Urinary Catheter Time of Insertion: 15:09 Data 08/01/25 03:08 08/01/25 03:08 A&P Assessment and plan 1. Hyponatremia: Plan: 1. Hyponatremia: Acute on chronic, patient's baseline seems to be low due to multiple psych medications and acute worsening likely from poor oral intake. Noted urine sodium being low consistent with hypovolemia, urine osmolality pending. Patient received normal saline bolus in the ED and repeat sodium was 119--> s/p 3% saline , Na 136 currently . continue fluid restriction to 1500 cc/day 2. Altered mental status/encephalopathy, in the setting of hyponatremia, improved, ? h/o dementia 3. History of coronary artery disease 4. Hypokalemia, repleted 5. History of diabetes Patient evaluated using audiovisual cart. Time spent 40 minutes PDMP PDMP Reviewed: Not Reviewed Attestations Medical Necessity Statement*: per [facility] Coding Level of Care Code Acute Code for [facility] Fwd Diagnoses Hyponatremia E87.1
[2025-08-01] MEDS: HYDROcodone-acetaminophen 5-325 mg Tablet 1 TAB PO (15:29)
--- NOTE | 2025-08-01 15:35 | PC.NURSE ---
IVs: this nurse attempted with and without ultrasound to obtain IV site x 4. Another nurse, tried 2 x to obtain iv sites. Her veins blew each time. Dr Butler notified while on ICU unit, of attempts. He stated he would like an IV site as per protocol in case she needs it but to let her rest for now and do not try again for a while.
--- NOTE | 2025-08-01 16:47 | P.PN_ITS ---
Subjective 2 Subjective: the patient was seen in the morning, disoriented to place and time, however relatively better than the time of admission. Reorientation and direction to the patient when provided she follows pleasantly. Medications: Reviewed: Yes Vitals/I&O/Wt Last Vital Signs Temp 97.4 F L 08/01/25 12:00 Pulse 109 H 08/01/25 14:00 Resp 18 08/01/25 14:00 BP 118/78 08/01/25 12:00 Pulse Ox 96 08/01/25 13:28 O2 Del Method Room Air 08/01/25 13:28 O2 Flow Rate 1 07/30/25 08:00 08/01/25 08/01/25 08/01/25 06:59 14:59 22:59 Intake Total 420 / 420 Output Total 1600 / 2805 300 / 300 Balance -1600 / -1955 120 / 120 Weight last 48 hrs Weight 80.739 kg Weight 79.832 kg Physical Exam 2 Narrative: General: Alert oriented to person only, lying comfortably without any distress, with Nova's catheter (for removal) HEENT: Normocephalic, atraumatic, grossly unremarkable exam Cardio: normal rate rhythm, normal S1-S2 without any murmurs, rubs, or gallops and JVD normal Respiratory: normal vascular breathing on auscultation without any wheezes, stridor, rhonchi GI: Abdomen soft, nontender, nondistended, normoactive bowel sounds present all 4 quadrants, Neuro: Grossly alert and motor and sensory function intact with coordination as well Behavior: Appropriate and cooperative. Extremities: Adequate palpable pulses, mild trace edema Urinary Catheter Management: Nova: Cath Placed During This Visit: yes, but has since been removed by the nurse Reason for Continuing Indwelling Catheter: Decision to DC Catheter Urinary Catheter Date of Insertion: 07/28/25 Urinary Catheter Time of Insertion: 15:09 Date Urinary Catheter Removed: 08/01/25 Time Urinary Catheter Discontinued: 11:00 Data 08/01/25 03:08 08/01/25 03:08 A&P Assessment and plan 1. Metabolic encephalopathy: Likely secondary to severe hyponatremia which seems chronic since the patient is asymptomatic and currently improving, seems chronic in nature. S/p hypertonic saline and hydration. Sodium level normal Nephrology consulted and appreciate the recommendations Reorientation Fall precautions Neurocheck every shift Intake and output monitoring 2. Hyponatremia: Nephrology consulted and on board Hyponatremia of 118 at presentation s/p hydration and hypertonic saline, currently at 131 Continue urea/sodium tablet hyponatremia work up reviewed, urine osmolality normal with serum osmolarity low range coinciding with high likelihood of SIADH? Avoid further fluids, and to follow the nephro recommendations Regular sodium monitoring Telemetry monitoring Neurochecks every shift patient does not need Nova's catheter therefore remove 3. Thyroid nodule: Stable as per the previous retrospective note send follow-up with the PCP 4. Anemia: Patient having Chronic microcytic anemia no obvious source of bleeding Anemia workup reviewed, seems anemia of chronic disease, normal vitamin B12 and folate levels with high ferritin and normal TIBC Stable hemoglobin and to continue monitor 5. CAD (coronary artery disease): Patient home medication reviewed, As per the previous retrospective notes of 2022 patient was following with Dr. ERICK ESPINOZA, and she was only on metoprolol. To continue home dose metoprolol Medication reconciled after confirmation 6. Diabetes mellitus: Sent for HbA1c A1c is at 5.1, as per her age A1c is tightly controlled. Therefore not to give her any fixed doses of insulin Insulin sliding scale and monitor glucose 7. Essential hypertension: Continue amlodipine 5 mg daily and to monitor 8. Centrilobular emphysema: DuoNeb scheduled along with budesonide Roflumilast 500 mcg daily Monitor pulse ox and hemodynamics 9. Encounter for screening involving social determinants of health (SDoH): Patient lives with her son who works and come back later during he is working. As per the patient she stays alone and moves around in the house with a cane. She also reported having a fall Therefore considering her age, frailty and risk of fall, to have rn case manager on board to further address her social determinants and safe disposition postdischarge. 10. Hypokalemia: Resolved, continue to monitor PDMP PDMP Reviewed: Not Reviewed Attestations 2 Medical Necessity Statement*: Patient will stay over the weekend disposition group home over the weekdays with involvement of case hardener Time Spent in Patient Care: 16 - 35 minutes (>than 50% of time sp ent in counselling and/or direct pt care on unit) . Other Attestations: I was unable to discuss patient current critical condition since the patient family or next of kin or guardian is not available around to discuss. The care has been delivered in the best interest of the patient based on the patient current CODE STATUS. I have reviewed all the images/labs/investigations independently. Management as per internal based on the recommendation and guidelines and patient's current clinical condition. Coding Level of Care Code 84860 Diagnoses Metabolic encephalopathy G93.41 Encephalopathy type: metabolic Hyponatremia E87.1 Thyroid nodule E04.1 Anemia D64.9 CAD (coronary artery disease) I25.10 Diabetes mellitus E11.9 Essential hypertension I10 Centrilobular emphysema J43.2 COPD type: emphysema Emphysema type: centrilobular Encounter for screening involving social determinants of health (SDoH) Z13.9 Hypokalemia E87.6
[2025-08-01] MEDS: ATORVASTATIN 20 MG TABLET PO (20:11)
[2025-08-02] VITALS (16 sets, daily range): BP systolic 125–136; BP diastolic 63–77; PULSE 0–115; RESP 16–19; TEMP 36.6–37.6; O2SAT 90–95
[2025-08-02 04:44] LABS: Hematocrit 28.1 % (36-47); Hemoglobin 9.40 g/dL (11.27-16.99); Mean Corpuscular HGB Conc 33.5 g/dL (30-55); Mean Corpuscular Hemoglobin 32.5 pg (27-33); Mean Corpuscular Volume 97.2 fl (85-98); Nucleated Red Blood Cells % 0.6 %; Platelet Count 419 10^3/cmm (157-399); Red Blood Count 2.89 10^6/uL (3.85-5.65); White Blood Count 7.07 10^3/uL (3.29-11.43)
[2025-08-02 05:15] LABS: Alanine Aminotransferase 13 U/L (0-33); Albumin Level 4.4 g/dL (3.5-5.2); Alkaline Phosphatase 60 U/L (35-105); Anion Gap 16.7 (5-19); Aspartate Amino Transferase 17 U/L (0-32); Blood Urea Nitrogen 13 mg/dL (8-23); Calcium 9.5 mg/dL (8.5-10.5); Carbon Dioxide 28 mmol/L (22-29); Chloride 95 mmol/L (98-107); Globulin 2.7 g/dL (1.3-4.6); Glucose 150 mg/dL (65-115); Osmolality Calculated 285 mOsm/kg (285-295); Potassium 3.7 mmol/L (3.5-5.1); Sodium 136 mmol/L (136-145); Total Protein 7.1 g/dL (6.6-8.7)
[2025-08-02] MEDS: metoprolol succinate ER (24 HR) 50 mg Tablet PO ×2 (05:15→16:20)
[2025-08-02] MEDS: artificial tears Op Soln 15 mL Btl 1 DROP EYE-BOTH ×2 (05:16→16:20)
--- NOTE | 2025-08-02 17:17 | PM.PN ---
Subjective Subjective: no new c/o Medications: Reviewed: Yes Vitals/I&O/Wt Last Vital Signs Temp 98.7 F 08/02/25 16:00 Pulse 115 H 08/02/25 16:00 Resp 16 08/02/25 16:00 BP 131/67 08/02/25 16:00 Pulse Ox 91 08/02/25 15:24 O2 Del Method Room Air 08/02/25 15:24 O2 Flow Rate 1 07/30/25 08:00 08/02/25 08/02/25 08/02/25 06:59 14:59 22:59 Intake Total 360 / 360 Balance 360 / 360 Weight last 48 hrs Weight 75.5 kg Weight 80.739 kg Physical Exam Narrative: , no acute distress, awake and alert, patient's family at bedside No JVD PERRLA S1-S2 regular rate and Lungs clear bilaterally Abdomen soft nontender Extremities no pedal edema Skin no rash Urinary Catheter Management: Nova: Cath Placed During This Visit: yes, but has since been removed by the nurse Reason for Continuing Indwelling Catheter: Decision to DC Catheter Urinary Catheter Date of Insertion: 07/28/25 Urinary Catheter Time of Insertion: 15:09 Date Urinary Catheter Removed: 08/01/25 Time Urinary Catheter Discontinued: 11:00 Data 08/02/25 04:21 08/02/25 04:21 Micro: Microbiology 07/28/25 12:21 Blood Culture - Final Blood NO GROWTH AFTER 5 DAYS 07/28/25 12:22 Blood Culture - Final Blood NO GROWTH AFTER 5 DAYS A&P Assessment and plan 1. Hyponatremia: Plan: 1. Hyponatremia: Acute on chronic, patient's baseline seems to be low due to multiple psych medications and acute worsening likely from poor oral intake. Noted urine sodium being low consistent with hypovolemia, urine osmolality pending. Patient received normal saline bolus in the ED and repeat sodium was 119--> s/p 3% saline , Na 136 currently . continue fluid restriction to 1500 cc/day 2. Altered mental status/encephalopathy, in the setting of hyponatremia, improved, ? h/o dementia 3. History of coronary artery disease 4. Hypokalemia, repleted 5. History of diabetes Patient evaluated using audiovisual cart. Time spent 40 minutes PDMP PDMP Reviewed: Not Reviewed Attestations Medical Necessity Statement*: per the [facility] Coding Level of Care Code Acute Code for [facility] Fwd Diagnoses Hyponatremia E87.1
--- NOTE | 2025-08-02 17:45 | P.PN_ITS ---
Subjective 2 Subjective: the patient was seen in the morning, patient seems pleasant and alert, disoriented to place and time however oriented to person she sometimes think that this is her home but she is easily guided and reoriented and follows command without any agitation or anxiety. Medications: Reviewed: Yes Vitals/I&O/Wt Last Vital Signs Temp 98.7 F 08/02/25 16:00 Pulse 115 H 08/02/25 16:00 Resp 16 08/02/25 16:00 BP 131/67 08/02/25 16:00 Pulse Ox 91 08/02/25 15:24 O2 Del Method Room Air 08/02/25 15:24 O2 Flow Rate 1 07/30/25 08:00 08/02/25 08/02/25 08/02/25 06:59 14:59 22:59 Intake Total 360 / 360 480 / 840 Balance 360 / 360 480 / 840 Weight last 48 hrs Weight 75.5 kg Weight 80.739 kg Physical Exam 2 Narrative: General: A pleasant lady, alert oriented to person only, lying comfortably without any distress, on room air HEENT: Normocephalic, atraumatic, grossly unremarkable exam Cardio: normal rate rhythm, normal S1-S2 without any murmurs, rubs, or gallops and JVD normal Respiratory: normal vascular breathing on auscultation without any wheezes, stridor, rhonchi GI: Abdomen soft, nontender, nondistended, normoactive bowel sounds present all 4 quadrants, Neuro: Grossly alert and motor and sensory function intact with coordination as well Behavior: Appropriate and cooperative. Extremities: Adequate palpable pulses, mild trace edema Urinary Catheter Management: Nova: Cath Placed During This Visit: yes, but has since been removed by the nurse Reason for Continuing Indwelling Catheter: Decision to DC Catheter Urinary Catheter Date of Insertion: 07/28/25 Urinary Catheter Time of Insertion: 15:09 Date Urinary Catheter Removed: 08/01/25 Time Urinary Catheter Discontinued: 11:00 Data 08/02/25 04:21 08/02/25 04:21 Micro: Microbiology 07/28/25 12:21 Blood Culture - Final Blood NO GROWTH AFTER 5 DAYS 07/28/25 12:22 Blood Culture - Final Blood NO GROWTH AFTER 5 DAYS A&P Assessment and plan 1. Metabolic encephalopathy: Likely secondary to severe hyponatremia which seems chronic since the patient is asymptomatic and currently improving, seems chronic in nature. S/p hypertonic saline and hydration. Sodium level normal Nephrology consulted and appreciate the recommendations Reorientation Fall precautions Neurocheck every shift Intake and output monitoring 2. 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 Regular sodium monitoring. Neurochecks every shift 3. Thyroid nodule: Stable as per the previous retrospective note send follow-up with the PCP 4. Anemia: Patient having Chronic microcytic anemia no obvious source of bleeding Anemia workup reviewed, seems anemia of chronic disease, normal vitamin B12 and folate levels with high ferritin and normal TIBC Stable hemoglobin and to continue monitor 5. CAD (coronary artery disease): Patient home medication reviewed, As per the previous retrospective notes of 2022 patient was following with Dr. ERICK ESPINOZA, and she was only on metoprolol. To continue home dose metoprolol Medication reconciled after confirmation 6. Diabetes mellitus: Sent for HbA1c A1c is at 5.1, as per her age A1c is tightly controlled. Therefore not to give her any fixed doses of insulin Insulin sliding scale and monitor glucose 7. Essential hypertension: Continue amlodipine 5 mg daily and to monitor 8. Centrilobular emphysema: DuoNeb scheduled along with budesonide Roflumilast 500 mcg daily Monitor pulse ox and hemodynamics 9. Encounter for screening involving social determinants of health (SDoH): Patient lives with her son who works and come back later during he is working. As per the patient she stays alone and moves around in the house with a cane. She also reported having a fall Therefore considering her age, frailty and risk of fall, to have director of casework department on board to further address her social determinants and safe disposition postdischarge. 10. Hypokalemia: Resolved, continue to monitor PDMP PDMP Reviewed: Not Reviewed Attestations 2 Medical Necessity Statement*: Patient will stay over the midnight for disposition to detention over the weekdays with involvement of case planner Time Spent in Patient Care: 16 - 35 minutes (>than 50% of time sp ent in counselling and/or direct pt care on unit) . Other Attestations: I was unable to discuss patient current critical condition since the patient family or next of kin or guardian is not available around to discuss. The care has been delivered in the best interest of the patient based on the patient current CODE STATUS. I have reviewed all the images/labs/investigations independently. Management as per internal based on the recommendation and guidelines and patient's current clinical condition. Coding Level of Care Code Acute Code for [facility] Diagnoses Metabolic encephalopathy G93.41 Encephalopathy type: metabolic Hyponatremia E87.1 Thyroid nodule E04.1 Anemia D64.9 CAD (coronary artery disease) I25.10 Diabetes mellitus E11.9 Essential hypertension I10 Centrilobular emphysema J43.2 COPD type: emphysema Emphysema type: centrilobular Encounter for screening involving social determinants of health (SDoH) Z13.9 Hypokalemia E87.6
[2025-08-02] MEDS: ATORVASTATIN 20 MG TABLET PO (20:42)
[2025-08-03] VITALS (15 sets, daily range): BP systolic 119–144; BP diastolic 51–81; PULSE 84–107; RESP 14–18; TEMP 36.6–36.9; O2SAT 90–98
[2025-08-03] MEDS: metoprolol succinate ER (24 HR) 50 mg Tablet PO ×2 (05:41→17:02)
[2025-08-03] MEDS: artificial tears Op Soln 15 mL Btl 1 DROP EYE-BOTH ×2 (05:49→17:02)
--- NOTE | 2025-08-03 19:25 | PM.PN ---
Subjective Subjective: no new c/o Medications: Reviewed: Yes Vitals/I&O/Wt Last Vital Signs Temp 97.8 F 08/03/25 18:00 Pulse 107 H 08/03/25 18:00 Resp 17 08/03/25 18:00 BP 121/71 08/03/25 18:00 Pulse Ox 92 08/03/25 16:05 O2 Del Method Room Air 08/03/25 16:05 O2 Flow Rate 1 07/30/25 08:00 08/03/25 08/03/25 08/03/25 06:59 14:59 22:59 Intake Total 360 / 360 Balance 360 / 360 Weight last 48 hrs Weight 74.661 kg Weight 75.5 kg Physical Exam Narrative: , no acute distress, awake and alert, patient's family at bedside No JVD PERRLA S1-S2 regular rate and Lungs clear bilaterally Abdomen soft nontender Extremities no pedal edema Skin no rash Urinary Catheter Management: Nova: Cath Placed During This Visit: yes, but has since been removed by the nurse Reason for Continuing Indwelling Catheter: Decision to DC Catheter Urinary Catheter Date of Insertion: 07/28/25 Urinary Catheter Time of Insertion: 15:09 Date Urinary Catheter Removed: 08/01/25 Time Urinary Catheter Discontinued: 11:00 Data 08/02/25 04:21 08/02/25 04:21 A&P Assessment and plan 1. Hyponatremia: Plan: 1. Hyponatremia: Acute on chronic, patient's baseline seems to be low due to multiple psych medications and acute worsening likely from poor oral intake. Noted urine sodium being low consistent with hypovolemia, urine osmolality pending. Patient received normal saline bolus in the ED and repeat sodium was 119--> s/p 3% saline , Na 136 currently . continue fluid restriction to 1500 cc/day 2. Altered mental status/encephalopathy, in the setting of hyponatremia, improved, ? h/o dementia 3. History of coronary artery disease 4. Hypokalemia, repleted 5. History of diabetes will sign off Patient evaluated using audiovisual cart. Time spent 40 minutes PDMP PDMP Reviewed: Not Reviewed Attestations Medical Necessity Statement*: per medicine Coding Level of Care Code Acute Code for [facility] Fwd Diagnoses Hyponatremia E87.1
[2025-08-03] MEDS: ATORVASTATIN 20 MG TABLET PO (20:29)
--- NOTE | 2025-08-03 20:46 | PM.PN ---
Subjective Subjective: Patient was seen in the morning, she was comfortably sleeping and easily arousable Patient is oriented to self and to place but more or less not to time. Cooperative and easily understands and directed Medications: Reviewed: Yes Vitals/I&O/Wt Last Vital Signs Temp 97.8 F 08/03/25 18:00 Pulse 94 08/03/25 20:37 Resp 17 08/03/25 20:29 BP 121/71 08/03/25 18:00 Pulse Ox 95 08/03/25 20:29 O2 Del Method Room Air 08/03/25 20:29 O2 Flow Rate 1 07/30/25 08:00 08/03/25 08/03/25 08/03/25 06:59 14:59 22:59 Intake Total 360 / 360 Balance 360 / 360 Weight last 48 hrs Weight 74.661 kg Weight 75.5 kg Physical Exam Narrative: General: A pleasant lady, alert oriented to person only, lying comfortably without any distress, on room air HEENT: Normocephalic, atraumatic, grossly unremarkable exam Cardio: normal rate rhythm, normal S1-S2 without any murmurs, rubs, or gallops and JVD normal Respiratory: normal vascular breathing on auscultation without any wheezes, stridor, rhonchi GI: Abdomen soft, nontender, nondistended, normoactive bowel sounds present all 4 quadrants, Neuro: Grossly alert and motor and sensory function intact with coordination as well Behavior: Appropriate and cooperative. Extremities: Adequate palpable pulses, mild trace edema Urinary Catheter Management: Nova: Cath Placed During This Visit: yes, but has since been removed by the nurse Reason for Continuing Indwelling Catheter: Decision to DC Catheter Urinary Catheter Date of Insertion: 07/28/25 Urinary Catheter Time of Insertion: 15:09 Date Urinary Catheter Removed: 08/01/25 Time Urinary Catheter Discontinued: 11:00 Data 08/02/25 04:21 08/02/25 04:21 A&P Assessment and plan 1. Metabolic encephalopathy: Likely secondary to severe hyponatremia which seems chronic since the patient is asymptomatic and currently improving, seems chronic in nature. S/p hypertonic saline and hydration. Sodium level normal Nephrology consulted and appreciate the recommendations Reorientation Fall precautions Neurocheck every shift Intake and output monitoring 2. 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 Regular sodium monitoring. Neurochecks every shift 3. Thyroid nodule: Stable as per the previous retrospective note send follow-up with the PCP 4. Anemia: Patient having Chronic microcytic anemia no obvious source of bleeding Anemia workup reviewed, seems anemia of chronic disease, normal vitamin B12 and folate levels with high ferritin and normal TIBC Stable hemoglobin and to continue monitor 5. CAD (coronary artery disease): Patient home medication reviewed, As per the previous retrospective notes of 2022 patient was following with Dr. ERICK ESPINOZA, and she was only on metoprolol. To continue home dose metoprolol Medication reconciled after confirmation 6. Diabetes mellitus: Sent for HbA1c A1c is at 5.1, as per her age A1c is tightly controlled. Therefore not to give her any fixed doses of insulin Insulin sliding scale and monitor glucose 7. Essential hypertension: Continue amlodipine 5 mg daily and to monitor 8. Centrilobular emphysema: DuoNeb scheduled along with budesonide Roflumilast 500 mcg daily Monitor pulse ox and hemodynamics 9. Encounter for screening involving social determinants of health (SDoH): Patient lives with her son who works and come back later during he is working. As per the patient she stays alone and moves around in the house with a cane. She also reported having a fall Therefore considering her age, frailty and risk of fall, to have nurse case management on board to further address her social determinants and safe disposition postdischarge. 10. Hypokalemia: Resolved, continue to monitor PDMP PDMP Reviewed: Not Reviewed Attestations Medical Necessity Statement*: Patient awaiting nurse case management arrangement for fdc placement Time Spent in Patient Care: 16 - 35 minutes (>than 50% of time spent in counselling and/or direct pt care on unit). Other Attestations: I was unable to discuss patient current critical condition since the patient family or next of kin or guardian is not available around to discuss. The care has been delivered in the best interest of the patient based on the patient current CODE STATUS. I have reviewed all the images/labs/investigations independently. Management as per internal based on the recommendation and guidelines and patient's current clinical condition. Coding Level of Care Code Acute Code for [facility] Diagnoses Metabolic encephalopathy G93.41 Encephalopathy type: metabolic Hyponatremia E87.1 Thyroid nodule E04.1 Anemia D64.9 CAD (coronary artery disease) I25.10 Diabetes mellitus E11.9 Essential hypertension I10 Centrilobular emphysema J43.2 COPD type: emphysema Emphysema type: centrilobular Encounter for screening involving social determinants of health (SDoH) Z13.9 Hypokalemia E87.6
[2025-08-04 02:00] VITALS: BP 124/75; PULSE 101; RESP 15; TEMP 36.8; O2SAT 97
[2025-08-04] MEDS: artificial tears Op Soln 15 mL Btl 1 DROP EYE-BOTH (04:33)
[2025-08-04] MEDS: metoprolol succinate ER (24 HR) 50 mg Tablet PO (04:34)
[2025-08-04 05:00] VITALS: BP 124/79; PULSE 106; RESP 17; TEMP 36.4; O2SAT 92
[2025-08-04 08:00] VITALS: BP 122/76; PULSE 90; PULSE 94; RESP 16; TEMP 36.9; O2SAT 93; O2SAT 94
[2025-08-04 11:10] VITALS: BP 130/94; PULSE 103; RESP 18; TEMP 36.8; O2SAT 93
[2025-08-04 14:34] VITALS: BP 130/94; PULSE 103; RESP 18; TEMP 36.8; O2SAT 93
--- NOTE | 2025-08-04 20:08 | PM.DCS ---
Discharge Providers Date of Admission: 07/28/25 14:12 Date of Discharge: August 04, 2025 Attending Provider at Admission: Nicole Butler MD Attending Provider at Discharge: Nicole Butler MD Primary Care Provider: Stew Ruiz DO Diagnoses at Discharge Discharge Diagnosis 1. Metabolic encephalopathy: 2. Hyponatremia: 3. Thyroid nodule: 4. Anemia: 5. CAD (coronary artery disease): 6. Diabetes mellitus: 7. Essential hypertension: 8. Centrilobular emphysema: 9. Encounter for screening involving social determinants of health (SDoH): 10. Hypokalemia: Reason for Visit Reason for Visit: AMS Brief History: As per the patient and retrospective notes: Bharti Lua is a 74 year old female with a history of breast, uterine, ovarian and cervical cancer, COPD, hypertension, hyperlipidemia, diabetes, depression, obstructive sleep apnea and PTSD who presents to the emergency room by ambulance from home with altered mental status. Family reports yesterday they had gone over to the house and she had defecated on herself and seemed confused. Today he went back over and she was still confused so they called an ambulance. Upon my interaction with the patient, she seems a pleasant lady and is alert oriented to place person and partially to time. The patient did not report any dizziness or recent fall. However she said that she lives with her son and might have a fall in the past when her son was at work and not around. I ask about her mobility and she reports that she walks around with a cane. And when her son comes after work, he helps her with the food and daily life activities. Otherwise she stays at home and no other support when she is alone. She also reported mild nausea and vomiting along with diarrhea in the last 3 to 4 days but no flulike symptoms. There was no abdominal pain, fevers, chest pain, chest pressure, palpitation, presyncope, orthopnea or PND or any recent lower leg swellings. Rest of the review of system unremarkable Hospital Course Hospital Course Patient admitted as a case of metabolic encephalopathy secondary to severe hyponatremia. Nephrology was taken on board. The patient received hypertonic saline and hydration. Her sodium levels improved without any complications. 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 Apart from that the patient was also having mild high blood pressure and was controlled with amlodipine 5 mg daily. And the rest of the medications were provided based on her comorbidities. She had mild tachycardia and continued on metoprolol. Based on the patient's social determinants correction placement was for her safe disposition since patient lives with her son but lacks 24/7 care and puts her at risk for fall and other complication. He was also on high dose of insulin and her HbA1c 2 years ago was 5.1% and during her hospital stay her glucose readings were more or less in the normal range with only low-dose sliding scale. Based on her old age and risk of hypoglycemia, insulin was discontinued and started on metformin 500 mg daily to be follow-up with primary care doctor as outpatient Medications were reconciled after confirmation and according to patient comorbidities and appropriate follow-ups and referrals were provided at the time of discharge. Patient condition has been discussed at length with the patient/family, I have independently reviewed the chart labs imaging/diagnostics/EKG. the goals of care and code status with the patient/family/NOK/legal underwriting service representative, and documented accordingly. The management has been done according to the current clinical condition with respect to patient goals of care and based on recommendations/guidelines. The patient/family has been informed about the current condition and further plan of care. Agreed with the plan of care and understood without any language barrier. Every effort was made to ensure accuracy of linotype machinist. Any obvious errors or omissions should be clarified with the author of the document. Physical Exam Narrative: General: A pleasant lady, alert oriented to person only, lying comfortably without any distress, on room air HEENT: Normocephalic, atraumatic, grossly unremarkable exam Cardio: normal rate rhythm, normal S1-S2 without any murmurs, rubs, or gallops and JVD normal Respiratory: normal vascular breathing on auscultation without any wheezes, stridor, rhonchi GI: Abdomen soft, nontender, nondistended, normoactive bowel sounds present all 4 quadrants, Neuro: Grossly alert and motor and sensory function intact with coordination as well Behavior: Appropriate and cooperative. Extremities: Adequate palpable pulses, mild trace edema Urinary Catheter Management: Nova: Cath Placed During This Visit: yes, but has since been removed by the nurse Reason for Continuing Indwelling Catheter: Decision to DC Catheter Urinary Catheter Date of Insertion: 07/28/25 Urinary Catheter Time of Insertion: 15:09 Date Urinary Catheter Removed: 08/01/25 Time Urinary Catheter Discontinued: 11:00 Discharge Data Studies Completed and Pending Completed Studies During Hospitalization Category Date Time Status CT head wo con* [id number] Stat Cat Scan 07/28/25 11:56 Completed XR chest 1V portable [id number] Stat Exams 07/28/25 11:56 Completed Radiology Impressions Chest X-Ray 07/28/25 11:56 IMPRESSION: Bibasilar opacities may represent atelectasis versus infiltrate. Possible trace right pleural effusion. Head CT 07/28/25 11:56 IMPRESSION: No acute intracranial abnormality. Laboratory Results WBC 7.07 10^3/uL (3.29-11.43) 08/02/25 04:21 RBC 2.89 10^6/uL (3.85-5.65) L 08/02/25 04:21 Hgb 9.40 g/dL (11.27-16.99) L 08/02/25 04:21 Hct 28.1 % (36-47) L 08/02/25 04:21 MCV 97.2 fl (85-98) 08/02/25 04:21 MCH 32.5 pg (27-33) 08/02/25 04:21 MCHC 33.5 g/dL (30-55) 08/02/25 04:21 RDW 15.9 % (12.1-15.1) H 08/02/25 04:21 Plt Count 419 10^3/cmm (157-399) H 08/02/25 04:21 MPV 10.3 fL (7.4-10.4) 08/02/25 04:21 Neut % (Auto) 64.4 % 08/02/25 04:21 Lymph % (Auto) 18.1 % 08/02/25 04:21 [place] % (Auto) 14.9 % 08/02/25 04:21 Eos % (Auto) 1.4 % 08/02/25 04:21 Baso % (Auto) 0.8 % 08/02/25 04:21 Neut # (Auto) 4.55 10^3/uL (1.8-7.7) 08/02/25 04:21 Lymph # (Auto) 1.3 10^3/uL (0.8-4.8) 08/02/25 04:21 [place] # (Auto) 1.1 10^3/uL (0.2-0.9) H 08/02/25 04:21 Eos # (Auto) 0.1 10^3/uL (0.0-0.8) 08/02/25 04:21 Baso # (Auto) 0.1 10^3/uL (0.0-0.1) 08/02/25 04:21 Nucleated RBC % (auto) 0.6 % 08/02/25 04:21 Nucleated RBCs # 0.0 /100WBC 08/02/25 04:21 Sodium 136 mmol/L (136-145) 08/02/25 04:21 Potassium 3.7 mmol/L (3.5-5.1) 08/02/25 04:21 Chloride 95 mmol/L (98-107) L 08/02/25 04:21 Carbon Dioxide 28 mmol/L (22-29) 08/02/25 04:21 Anion Gap 16.7 (5-19) 08/02/25 04:21 BUN 13 mg/dL (8-23) 08/02/25 04:21 Creatinine 0.9 mg/dL (0.5-0.9) 08/02/25 04:21 GFR Calculation Not Reportable 08/02/25 04:21 Glucose 150 mg/dL (65-115) H 08/02/25 04:21 POC Glucose 149 mg/dL (70-110) H 08/04/25 11:24 Calculated Osmolality 285 mOsm/kg (285-295) 08/02/25 04:21 Lactic Acid 0.9 mmol/L (0.5-2.2) 07/28/25 12:22 Calcium 9.5 mg/dL (8.5-10.5) 08/02/25 04:21 Iron 52 ug/dL (37-145) 07/28/25 18:13 TIBC 266 mcg/dl 07/28/25 18:13 % Saturation 19.5 % (20-50) L 07/28/25 18:13 Unsat Iron Binding 214 ug/dL (112-347) 07/28/25 18:13 Ferritin 650 ng/mL (15-150) H 07/28/25 18:13 Total Bilirubin 0.5 mg/dL (0.15-1.2) 08/02/25 04:21 AST 17 U/L (0-32) 08/02/25 04:21 ALT 13 U/L (0-33) 08/02/25 04:21 Alkaline Phosphatase 60 U/L (35-105) 08/02/25 04:21 Troponin T Baseline 18 ng/L (0-10) H 07/28/25 12:22 Troponin T 60 Minute 19.96 ng/L (0-10) H 07/28/25 13:24 Delta Troponin T 1.96 ABS# (0-10) 07/28/25 13:24 Troponin T Hi Sens 6Hr 20.73 ng/L (0-10) H 07/28/25 18:13 Troponin T Hi Sens 6Hr Delta 2.73 ng/L (0-12) 07/28/25 18:13 Total Protein 7.1 g/dL (6.6-8.7) 08/02/25 04:21 Albumin 4.4 g/dL (3.5-5.2) 08/02/25 04:21 Globulin 2.7 g/dL (1.3-4.6) 08/02/25 04:21 Vitamin B12 926 pg/mL (232-1245) 07/28/25 18:13 Folate 14.6 ng/mL (4.8-37.3) 07/28/25 15:12 TSH 1.83 uIU/mL (0.27-4.20) 07/28/25 15:12 Free T4 1.45 ng/dL (0.82-1.77) 07/28/25 15:12 Free T3 1.5 PG/ML (2.0-4.4) L 07/28/25 15:12 Urine Color Yellow (Yellow) 07/28/25 12:16 Urine Appearance Clear (CLEAR) 07/28/25 12:16 Urine pH 5.5 (5-7) 07/28/25 12:16 Ur Specific [place] 1.017 (1.005-1.030) 07/28/25 12:16 Urine Protein Trace (Negative) A 07/28/25 12:16 Urine Glucose (UA) Negative (Normal) 07/28/25 12:16 Urine Ketones 1+ (Negative) H 07/28/25 12:16 Urine Blood Negative (Negative) 07/28/25 12:16 Urine Nitrate Negative (Negative) 07/28/25 12:16 Urine Bilirubin Negative (Negative) 07/28/25 12:16 Urine Urobilinogen 1.0 mg/dL (Negative) 07/28/25 12:16 Ur Leukocyte Esterase Trace (Negative) A 07/28/25 12:16 Urine RBC 0-2 /hpf (0-2) 07/28/25 12:16 Urine WBC 0-5 /hpf (0-5) 07/28/25 12:16 Ur Squamous Epith Cells 0-5 /hpf (0-5) 07/28/25 12:16 Amorphous Sediment Not Reportable 07/28/25 12:16 Urine Bacteria None seen /hpf (NONE) 07/28/25 12:16 Hyaline Casts 0-4 /lpf H 07/28/25 12:16 Urine Osmolality 475 mOsm/kg (50-1200) 07/28/25 18:15 U Random Total Protein 15 mg/dL 07/28/25 18:15 Ur Random Sodium 11 mmol/L 07/28/25 18:15 Ur Random Potassium 19 mmol/L 07/28/25 18:15 Ur Random Chloride 18 mmol/L 07/28/25 18:15 Urine Creatinine 103 mg/dL (28-217) 07/28/25 18:15 Influenza A (PCR) Negative (Negative) 07/28/25 13:43 Influenza Type B (PCR) Negative (Negative) 07/28/25 13:43 RSV (PCR) Negative (Negative) 07/28/25 13:43 SARS-CoV-2 (PCR) Negative (Negative) 07/28/25 13:43 Vitals Last Vital Signs Temp 98.3 F 08/04/25 14:34 Pulse 103 H 08/04/25 14:34 Resp 18 08/04/25 14:34 BP 130/94 08/04/25 14:34 Pulse Ox 93 08/04/25 14:34 O2 Del Method Room Air 08/04/25 11:10 O2 Flow Rate 1 07/30/25 08:00 Discharge Plan Discharge Patient Disposition: Xfer SNF Condition: Stable Prescriptions: New amlodipine 5 mg Tablet 5 mg PO DAILY 60 Days Qty: 60 0RF metoprolol succinate 50 mg Tablet Extended Release 24 Hr 50 mg PO BID 60 Days Qty: 120 0RF metformin 500 mg tablet 500 mg PO DAILY Qty: 90 0RF Continued magnesium oxide 400 mg magnesium capsule 400 mg PO DAILY (DME) blood pressure test kit-medium [[place] Blood Pressure] Kit See Rx Instructions .Route Qty: 1 0RF Rx Instructions: As directed Trelegy Ellipta 100-62.5-25 mcg blister with device 1 inh inhalation DAILY ibuprofen [Advil] 200 mg tablet 200 mg PO Q6H PRN (Reason: Pain) Centrum Silver Women 8 mg iron-400 mcg-300 mcg tablet 1 tab PO DAILY Artificial Tears (cmc) 1 % drops 1 drp ophthalmic (eye) BID Qty: 15 1RF Klonopin 1 mg tablet 1 mg PO TID PRN (Reason: Anxiety) Qty: 90 2RF nitroglycerin [Nitrostat] 0.4 mg tablet, sublingual 0.4 mg sublingual Q5M PRN (Reason: chest pain) Qty: 25 3RF Rx Instructions: do not exceed 3 doses per episode (DME) Diabetic shoes with 3 pairs of inserts See Rx Instructions .Route .MEDSUPPLY Qty: 1 0RF Rx Instructions: As directed HOME (DME) diabetic shoe See Rx Instructions .Route .MEDSUPPLY Qty: 1 0RF Rx Instructions: As directed omeprazole 40 mg capsule,delayed release(DR/EC) 40 mg PO DAILY Qty: 30 0RF (DME) blood-glucose meter Misc See Rx Instructions .Route Qty: 1 0RF Rx Instructions: Check blood sugar 4x daily (DME) lancets-blood glucose strips 30 gauge combo pack See Rx Instructions .Route Qty: 200 2RF Rx Instructions: Check blood glucose levels 4x daily atorvastatin 20 mg Tablet 20 mg PO BEDTIME Qty: 0 levalbuterol tartrate 45 mcg/actuation HFA aerosol inhaler 2 puff INHALATION Q4H aripiprazole [Abilify] 5 mg tablet 5 mg PO BEDTIME roflumilast 500 mcg tablet 500 mcg PO DAILY hydrocodone-acetaminophen 5-325 mg tablet 1 tab PO QID PRN (Reason: Pain) docusate sodium [Colace] 100 mg Capsule 100 mg PO BID albuterol sulfate 90 mcg/actuation HFA aerosol inhaler 2 puff INHALATION Q6H PRN (Reason: Shortness Of Breath) fluticasone propionate 50 mcg/actuation spray,suspension 2 spray INTRANASAL DAILY fluticasone propionate 110 mcg/actuation HFA aerosol inhaler 1 puff INHALATION DAILY lactulose [Enulose] 10 gram/15 mL solution 15 ml PO TID PRN (Reason: Constipation) trazodone 100 mg tablet 400 mg PO BEDTIME Patient Comments: pt states she might take 4 tabs or 2 tabs depending on how she feels Discontinued metoprolol succinate 25 mg tablet extended release 24 hr 37.5 mg PO BID Qty: 270 3RF turmeric 400 mg capsule 400 mg PO DAILY duloxetine 60 mg capsule,delayed release(DR/EC) 60 mg PO DAILY Qty: 90 0RF diclofenac sodium 75 mg tablet,delayed release (DR/EC) 75 mg PO BID insulin glargine [Lantus Solostar U-100 Insulin] 100 unit/mL (3 mL) insulin pen 35 unit SUBCUT BEDTIME 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 Tax 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 OK for DC: Nephrology Discharge Order = DC NOW: Discharge Order (Routine); Ordered 08/04/25 Ordered By: Nicole Butler Referrals: [facility] [Outside] Stew Ruiz DO [Primary Care Provider] Discharge Diet: Advance as tolerated Discharge Activity: Resume usual activity Patient Instructions: Altered Mental Status (ED), Opioid Safety, Patient Portal & Yg Instructions Discharge Attestations Time Spent in Discharge Care*: greater than 30 min Specific Discharge Activities: educating patient, educating and/or supporting family/caregiver, discussing with pcp/other providers, discussing with case management manager/social workers/dc planners, documenting/other paperwork and evaluating patient/reviewing data Status at Discharge: Cognitive status at discharge: mildly impaired cognition, Behavioral status at discharge: can be uncooperative, Functional status at discharge: other assisted ambulation, Overall status at discharge: patient is progressing back to baseline Quality Metrics Clinical Quality Measures [ No reported AMI, CVA or VTE this stay] Coding Level of Care Code Acute Code for Chg Fwd Diagnoses Metabolic encephalopathy G93.41 Encephalopathy type: metabolic Hyponatremia E87.1 Thyroid nodule E04.1 Anemia D64.9 CAD (coronary artery disease) I25.10 Diabetes mellitus E11.9 Essential hypertension I10 Centrilobular emphysema J43.2 COPD type: emphysema Emphysema type: centrilobular Encounter for screening involving social determinants of health (SDoH) Z13.9 Hypokalemia E87.6
== END 2025-08-04 14:35 | disposition skilled nursing facility (03) | DRG 640 ==
LOC: ER 13:14 → MEDSURG 14:14 → ICU 14:33 → MEDSURG 08-01 16:58
PROVIDERS: Hospitalist; Admitting Provider Student in an Organized Health Care Education/Training Program; Emergency Provider Emergency Medicine; PCP Family Medicine; Visit Provider Student in an Organized Health Care Education/Training Program
DX: E87.1 Hypo-osmolality and hyponatremia (principal); G93.41 Metabolic encephalopathy; E04.1 Nontoxic single thyroid nodule; I25.10 Atherosclerotic heart disease of native coronary artery without angina pectoris; I10 Essential (primary) hypertension; E11.9 Type 2 diabetes mellitus without complications; E87.6 Hypokalemia; D50.9 Iron deficiency anemia, unspecified; Z87.891 Personal history of nicotine dependence; G47.33 Obstructive sleep apnea (adult) (pediatric); E78.5 Hyperlipidemia, unspecified; Z79.4 Long term (current) use of insulin; F43.12 Post-traumatic stress disorder, chronic; Z96.652 Presence of left artificial knee joint; Z85.3 Personal history of malignant neoplasm of breast; Z85.43 Personal history of malignant neoplasm of ovary; Z85.41 Personal history of malignant neoplasm of cervix uteri; Z85.42 Personal history of malignant neoplasm of other parts of uterus; Z80.9 Family history of malignant neoplasm, unspecified; Z82.49 Family history of ischemic heart disease and other diseases of the circulatory system; Z83.6 Family history of other diseases of the respiratory system; Z79.51 Long term (current) use of inhaled steroids; F32.A Depression, unspecified; J43.2 Centrilobular emphysema
CPT/HCPCS: 36415; 36416; 51702; 70450; 71045; 80048; 80053; 81001; 82436; 82570; 82607; 82728; 82746; 82962; 83540; 83550; 83605; 83935; 84133; 84156; 84295; 84300; 84439; 84443; 84481; 84484; 85025; 87040; 87637; 93005; 94640; 96372; 96374; 97110; 97116; 97161; 97167; 97530; 97535; 99285; J1650; J3490; J7030; J7060; J7131; J7614; J7626; J7644; J9999; Q3014